=== PATIENT | male | born 1940 | race Caucasian/White ===

== ENCOUNTER → 2016-04-19 | Outpatient (CLI) | payer MEDICARE, OTHER ==
--- NOTE | 2016-04-21 11:24 | SLEEPCENT ---
DATE OF PROCEDURE: 04/19/2016 ORDERED BY: EMMANUEL Frazier Nocturnal polysomnography was performed for the titration of pressure therapy in this patient with obstructive sleep apnea syndrome confirmed by home testing revealing a respiratory event index of 6.2. For testing, the patient was fit with a [employer]Med Quattro Mirage full face mask of large size. 5 cm of water pressure was initially applied to the circuit and the lights were extinguished. 7 hours and 27 minutes of data were reviewed. There were 214 minutes of sleep identified. Sleep latency was short at 19 minutes. Rapid eye movement (REM) latency was prolonged at 322 minutes. Sleep architecture improved late in the study. Overall sleep efficiency was only 48% due to periods of wake along the test. The patient's electrocardiogram (EKG) showed a sinus rhythm with an average heart rate of 50 beats per minute. Electroencephalogram (EEG) showed reasonably normal waveforms for awake and sleep. Persistence of respiratory events prompted an increase in CPAP pressure from 6 to 9. Despite optimal mask fit, and minimal air leak, the patient was changed to a bilevel device and best sleep was appreciated on a bilevel therapy inspiratory pressure of 10 over expiratory pressure of 6 with which the patient did sleep through REM without respiratory event or oxygen desaturation. Minimal snoring was noted. IMPRESSION: Obstructive sleep apnea syndrome (G47.33). RECOMMENDATION: Nightly use of bilevel pressure therapy inspiratory pressure of 10 over expiratory pressure of 6.
== END ==
LOC: M SLEEP 19:32
PROVIDERS: ATTEND Nurse Practitioner Adult Health
DX: G47.33 Obstructive sleep apnea (adult) (pediatric) (principal)

== ENCOUNTER → 2016-05-02 | Outpatient (CLI) | payer MEDICARE, OTHER ==
--- NOTE | 2016-05-02 16:18 | REP ---
CHEST, TWO VIEWS: REASON: Chest pain. COMPARISON: 11/30/2011 FINDINGS: The superior mediastinal structures are midline. The cardiac silhouette is unremarkable in size, shape, and position. The diaphragmatic surfaces of the lungs are regular, and the costophrenic angles are clear. The pulmonary maza are clear. The imaged osseous structures are intact. No significant change from the prior exam. IMPRESSION: There is no acute cardiopulmonary disease. Signed by Benigno Raphael DO 05/02/2016 04:20 P
--- NOTE | 2016-05-02 16:28 | REP ---
Left rib series: Four views. History: Pain in the left lower ribs. Findings: There is some discoid atelectasis in the left lower lobe of the lung. No pneumothorax is seen. There is a slightly displaced fracture of the posterolateral segment of the left 8th rib. There is a radiolucency and a fracture involving the left lateral 2nd rib with some adjacent pleural thickening. This suggests a bony destructive lesion with pathologic fracture of the second rib. No other bony destructive lesion is seen. These are new findings when compared with the November 30, 2011 prior radiographs. Impression: Minimally displaced fracture of the left posterolateral 8th rib. Evidence of pathologic fracture with lytic lesion in the left second rib. Metastatic disease must be suspected. Consider bone scan. Signed by Wil Ash MD 05/02/2016 04:46 P
== END ==
LOC: M WUC 13:49
PROVIDERS: ATTEND Nurse Practitioner Family
DX: S22.32XA Fracture of one rib, left side, initial encounter for closed fracture (principal); M84.48XA Pathological fracture, other site, initial encounter for fracture; X58.XXXA Exposure to other specified factors, initial encounter; Y92.89 Other specified places as the place of occurrence of the external cause; Y93.89 Activity, other specified; Y99.8 Other external cause status

== ENCOUNTER → 2016-05-05 | Outpatient (CLI) | payer MEDICARE, OTHER ==
--- NOTE | 2016-05-05 14:10 | REP ---
WHOLE BODY RADIONUCLIDE BONE SCAN: HISTORY: Lytic lesion left 2nd rib. The patient reports left flank pain while sneezing. History of melanoma 5 years prior removed from the right forearm. TECHNIQUE: 21.7 mCi of technetium 99m MDP is injected, and standard whole body bone scan imaging is acquired. SCINTIGRAPHIC FINDINGS: There is an arthritic pattern of increased uptake in the region of the subtalar joints of both feet. There is mild arthritic uptake in the right knee and in both acromioclavicular joints. There is mild degenerative disc uptake in the mid lumbar spine. There is uptake in bilateral kidneys and in the urinary bladder. There are also scattered foci of increased uptake in the rib cage, compatible with metastatic disease. There is also a lesion showing increased uptake along the lateral border of the scapula on the left. The rib lesions include the right anterior 2nd rib, the left lateral 2nd rib, the left posterior 10th, 7th, and 5th ribs. No other suspicious foci. IMPRESSION: Metastatic disease pattern involving multiple rib foci and an area of increased uptake along the lateral border of the left scapula. Multifocal arthritic uptake as well. Signed by Wil Ash MD 05/05/2016 04:46 P
== END ==
LOC: M RAD 07:49
PROVIDERS: ATTEND Nurse Practitioner Family
DX: R93.7 Abnormal findings on diagnostic imaging of other parts of musculoskeletal system (principal)
CPT/HCPCS: 78306; A9503

== ENCOUNTER → 2016-05-10 | Outpatient (REF) | payer MEDICARE, OTHER ==
[2016-05-10 13:29] LABS: TOTAL PROTEIN 7.8 GM/DL (6.4-8.2)
[2016-05-11 13:10] LABS: ALBUMIN 4.05 GM/DL (3.29-5.55); ALBUMIN % 51.9 % (55.8-66.1); GAMMA GLOBULIN % 12.2 % (11.1-18.8)
[2016-05-12 09:35] LABS: CARCINOEMBRYONIC ANTIGEN 1.5 NG/ML (<2.5)
== END ==
LOC: M LAB REF 12:11
PROVIDERS: ATTEND Internal Medicine
DX: C43.61 Malignant melanoma of right upper limb, including shoulder (principal)

== ENCOUNTER → 2016-05-16 | Outpatient (REF) | payer MEDICARE, OTHER ==
[2016-05-16 17:02] LABS: IMMUNOGLOBULIN M 29.8 MG/DL (40-230)
== END ==
LOC: M LAB REF 12:24
PROVIDERS: ATTEND Internal Medicine Medical Oncology
DX: C90.00 Multiple myeloma not having achieved remission (principal)

== ENCOUNTER 2016-06-09 11:45 | Observation (INO) | payer MEDICARE, OTHER ==
[~2016-06-09] VITALS: Ht 180.3 cm; Wt 92.1 kg
[2016-06-09] MEDS ORDERED: ENAL20TA PO ×2 (12:11→12:21)
[2016-06-09] MEDS ORDERED: FINA5TAB2 PO (12:21)
[2016-06-09] MEDS ORDERED: [UNRECOGNIZED DRUG - OTHER] (12:21)
[2016-06-09] MEDS ORDERED: VELC3.5I SC (12:21)
[2016-06-09] MEDS ORDERED: PRAV40TA2 PO (12:21)
[2016-06-09] MEDS ORDERED: TRAM-533 PO (12:21)
[2016-06-09] MEDS ORDERED: REVL20CA PO (12:35)
[2016-06-09] MEDS ORDERED: BIMA01SOL OD (12:35)
[2016-06-09] MEDS ORDERED: DEXA4TA PO (12:35)
[2016-06-09] MEDS ORDERED: BIMA01SOL (12:35)
[2016-06-09] MEDS ORDERED: ACYC400T PO (12:35)
[2016-06-09] MEDS ORDERED: HYDR25TAB PO (12:35)
[2016-06-09] MEDS ORDERED: [UNRECOGNIZED DRUG - CODE] INJ (12:35)
[2016-06-09] MEDS ORDERED: DOCQ100C PO (12:35)
[2016-06-09] MEDS ORDERED: DULC100C PO (12:36)
[2016-06-09 12:53] LABS: BASO % 0.1 % (0.0-1.0); EOS # 0.1 K/mm3 (0.0-0.50); EOS % 0.6 % (0.0-3.0); LARGE UNSTAINED CELL # 0.1 K/mm3 (0.0-0.4); LARGE UNSTAINED CELL % 0.9 % (0.0-4.0); LYMPH # 0.7 K/mm3 (1.5-4.5); LYMPH % 5.8 % (24.0-44.0); MEAN CORPUSCULAR HGB CONC 34.2 g/dl (32.0-36.5); MEAN CORPUSCULAR VOLUME 90.7 fl (80.0-96.0); MONO # 0.8 K/mm3 (0.0-0.8); MONO % 8.1 % (0.0-5.0); NEUTROPHILS # 8.8 K/mm3 (1.8-7.7); NEUTROPHILS % 84.5 % (36.0-66.0); PLATELET COUNT, AUTOMATED 163 k/mm3 (150-450); WHITE BLOOD COUNT 10.4 K/mm3 (4.0-10.0)
[2016-06-09 12:58] LABS: INR 1.21
[2016-06-09 13:20] LABS: ALBUMIN 3.2 GM/DL (3.2-5.2); ALBUMIN/GLOBULIN RATIO 1.07 (1.00-1.93); ALKALINE PHOSPHATASE 98 U/L (45-117); ALT/SGPT 27 U/L (12-78); ANION GAP 10 MEQ/L (8-16); AST/SGOT 16 U/L (15-37); BILIRUBIN,DIRECT 0.3 MG/DL (0.0-0.2); BILIRUBIN,TOTAL 0.8 MG/DL (0.2-1.0); BLOOD UREA NITROGEN 18 MG/DL (7-18); CALCIUM LEVEL 7.1 MG/DL (8.8-10.2); CARBON DIOXIDE LEVEL 22 MEQ/L (21-32); CHLORIDE LEVEL 102 MEQ/L (98-107); CREATININE FOR GFR 0.95 MG/DL (0.70-1.30); GLOMERULAR FILTRATION RATE > 60.0 (>42); GLUCOSE, FASTING 111 MG/DL (83-110); POTASSIUM SERUM 3.6 MEQ/L (3.5-5.1); SODIUM LEVEL 134 MEQ/L (136-145); TOTAL PROTEIN 6.2 GM/DL (6.4-8.2)
[2016-06-09] MEDS ORDERED: NS 1,000 ML IV ONE (13:30)
[2016-06-09] MEDS ORDERED: NS 500 ML IV ONE ×2 (15:00→16:00)
[2016-06-09] MEDS ORDERED: traMADol 50 MG TAB PO ONE (18:45)
[2016-06-09] MEDS ORDERED: ONDANSETRON 4MG/2ML VIAL (J2405) IV PRN (19:45)
[2016-06-09] MEDS ORDERED: PROC10TA PO (20:41)
[2016-06-09] MEDS ORDERED: ACET-654 PO (20:41)
[2016-06-09] MEDS ORDERED: ZOFR20TA PO (20:41)
[2016-06-09] MEDS ORDERED: SENN8.6T17 PO (20:41)
--- NOTE | 2016-06-09 20:50 | REPUSA ---
CT of the head Clinical history: syncope. Technique: Multiple axial CT images were obtained through the head without administration of contrast . Findings: The ventricles and sulci are symmetric bilaterally. There is no evidence of acute hemorrhag e or infarct. There is no midline shift, mass effect, or extra-axial fluid collection. The osseous st ructures are unremarkable. The visualized paranasal sinuses and mastoid air cells are clear. Impression: Negative study.
[2016-06-09] MEDS ORDERED: traMADol 50 MG TAB PO PRN (21:00)
[2016-06-09] MEDS ORDERED: SENNA 8.6 MG TAB (SENOKOT) PO PRN (21:00)
--- NOTE | 2016-06-09 21:30 | HPE ---
DATE OF ADMISSION: 06/09/2016 PRIMARY CARE PROVIDER: Dr. Salguero CHIEF COMPLAINT: Weakness, dizziness and low blood pressure. PAST MEDICAL HISTORY: 1. Multiple myeloma, started on chemotherapy 10 days ago. 2. Obesity and obstructive sleep apnea. 3. Hypertension. 4. Hyperlipidemia. 5. BPH. 6. Chronic constipation. 7. 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 8. History of melanoma removed 5 years ago from right forearm. HISTORY OF THE PRESENT ILLNESS: This is a 76-year-old male who was diagnosed recently with multiple myeloma, started on chemotherapy with Velcade, revlimid and dexamethasone 10 days ago. The patient received three doses of Velcade to date and was at chemotherapy infusion unit to get the fourth dose today when he stood up and suddenly became very lightheaded, dizzy, nauseous. Blood pressure there showed hypotension and so was sent to the emergency room. In the emergency department, the patient had dry heaves and one episode of vomiting. The patient had a presyncopal episode. The patient was found to have orthostatic blood pressure positive. Labs also significant for elevated lactic acid. The patient received several liters of IV fluids with improvement in lactic acid; however, the patient remained positive for orthostatic hypotension, unable to stand up because of dizziness and lightheadedness, so is being admitted to the hospitalist service for dehydration, poor intake and orthostatic hypotension. The patient denied any fever or chills. Denied any abdominal pain. Does have some nausea and dry heaves. Denied any diarrhea. In fact, has constipation from pain medications because of his rib pain. Denied any chest pain, any cough or phlegm. The patient has been having very poor oral intake since the starting of chemotherapy and has been having very poor oral liquid intake. PAST SURGICAL HISTORY: Had ENT surgery before for tear duct infection. Had removal of loose bodies from right ankle. Melanoma removal from right forearm, from right upper extremity. Knee surgery, arthroscopic. Cataract surgery. ALLERGIES: No known allergies. HOME MEDICATIONS: - Tylenol 650 mg by mouth as needed - acyclovir 400 mg by mouth twice a day - Lumigan eye drop at bedtime - Velcade two times per week, Tuesdays and Fridays - dexamethasone 20 mg per week, once a day on Sunday - Colace 100 mg by mouth daily - enalapril 20 mg by mouth daily - finasteride 5 mg by mouth daily - hydrochlorothiazide 12.5 mg by mouth every 2 days - Zofran 4 mg by mouth every 6 hours as needed for nausea and vomiting - pravastatin 40 mg at bedtime - prochlorperazine 10 mg by mouth every 8 hours as needed for pain - revlimid 25 mg by mouth nightly - Senna one tablet by mouth daily - tramadol 50 mg every 6 hours as needed for pain - Zometa 4 mg injection every 30 days SOCIAL HISTORY: The patient does not smoke, does not drink alcohol or any recreational drugs. REVIEW OF SYSTEMS: All 10-point review of systems are negative except those mentioned in the history of the present illness. PHYSICAL EXAMINATION: VITAL SIGNS: Temperature 97.3, pulse 88, blood pressure 139/85 supine, 108/50 standing. Pulse oximetry 95% in room air. GENERAL: Patient awake, alert, oriented times three, lying down in bed in no acute distress. HEENT: Normocephalic, atraumatic. Moist mucous membranes. Anicteric eyes. CHEST: Clear to auscultation. CARDIOVASCULAR: S1, S2 regular. No rub, murmur or gallop. ABDOMEN: Soft, nontender. Bowel sounds present. EXTREMITIES: No edema. LABORATORY DATA: WBC 10.4, hemoglobin 13.9, platelets 163. Sodium 134, potassium 3.6, chloride 102, bicarbonate 22, BUN 18, creatinine 0.95, glucose 111, lactic acid 2.3, calcium 7.1, bilirubin 0.8, other LFTs are normal. Lipase 132. Cortisol 53.6. Coagulation studies are normal. ASSESSMENT: This is a 76-year-old male admitted for syncope, thought to be due to orthostatic hypotension. PLAN: Syncope. Most likely due to orthostatic hypotension; however, will cycle cardiac enzymes and observe the patient on telemetry, get CT head and echocardiogram to evaluate for other causes of syncope. Multiple myeloma. The patient is currently on chemotherapy, Velcade, revlimid and dexamethasone. Will continue revlimid 25 mg at bedtime and dexamethasone once a week on Saturdays. Hypertension. At present, the patient has orthostatic hypotension, so will hold enalapril as well as hydrochlorothiazide. Obstructive sleep apnea (ETIENNE). Patient could not tolerate continuous positive airway pressure (CPAP). Stable at this point. Hyperlipidemia. Will continue with pravastatin. 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 Will continue tramadol. Chronic constipation. Will continue with Dulcolax, Colace and Senna. Deep vein thrombosis (DVT) prophylaxis has been ordered.
[2016-06-09 23:30] VITALS: BP 145/66
[2016-06-10] VITALS (7 sets, daily range): BP systolic 125–149; BP diastolic 62–82; PULSE 61
[2016-06-10] MEDS: ACYCLOVIR 200 MG CAPSULE PO SCH ×3 (01:50→20:21)
[2016-06-10] MEDS: PRAVASTATIN 20 MG TAB PO SCH ×2 (01:51→20:20)
[2016-06-10 04:16] LABS: ANION GAP 8 MEQ/L (8-16); BLOOD UREA NITROGEN 14 MG/DL (7-18); CALCIUM LEVEL 6.8 MG/DL (8.8-10.2); CARBON DIOXIDE LEVEL 24 MEQ/L (21-32); CHLORIDE LEVEL 106 MEQ/L (98-107); GLOMERULAR FILTRATION RATE > 60.0 (>42); GLUCOSE, FASTING 102 MG/DL (83-110); MAGNESIUM LEVEL 1.9 MG/DL (1.8-2.4); POTASSIUM SERUM 3.3 MEQ/L (3.5-5.1); SODIUM LEVEL 138 MEQ/L (136-145)
[2016-06-10 04:24] LABS: BASO % 0.2 % (0.0-1.0); EOS # 0.2 K/mm3 (0.0-0.50); EOS % 1.3 % (0.0-3.0); LARGE UNSTAINED CELL # 0.2 K/mm3 (0.0-0.4); LARGE UNSTAINED CELL % 1.6 % (0.0-4.0); LYMPH # 0.7 K/mm3 (1.5-4.5); LYMPH % 6.4 % (24.0-44.0); MEAN CORPUSCULAR HEMOGLOBIN 31.4 pg (27.0-33.0); MEAN CORPUSCULAR HGB CONC 34.2 g/dl (32.0-36.5); MEAN CORPUSCULAR VOLUME 91.9 fl (80.0-96.0); MONO # 1.3 K/mm3 (0.0-0.8); NEUTROPHILS # 9.1 K/mm3 (1.8-7.7); NEUTROPHILS % 79.5 % (36.0-66.0); PLATELET COUNT, AUTOMATED 175 k/mm3 (150-450); RED CELL DISTRIBUTION WIDTH 12.9 % (11.5-14.5); WHITE BLOOD COUNT 11.4 K/mm3 (4.0-10.0)
[2016-06-10] MEDS ORDERED: POTASSIUM CHLORIDE 10 MEQ SR TABLET PO ONE (06:45)
[2016-06-10] MEDS ORDERED: CALCIUM GLUCONATE 1,000 MG in D5W MINI-BAG PLUS 100 ML IV ONE (08:15)
--- NOTE | 2016-06-10 08:27 | ECGEPIP ---
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
[2016-06-10] MEDS: FINASTERIDE 5 MG TAB PO SCH (09:00)
[2016-06-10] MEDS: DOCUSATE SODIUM 100 MG CAP PO SCH (09:47)
[2016-06-10] MEDS: ENOXAPARIN 40 MG/0.4 ML SYRINGE (J1650) SC SCH (09:48)
[2016-06-10] MEDS: ASPIRIN 81 MG ENTERIC TAB PO SCH (12:45)
[2016-06-10] MEDS: NS 1,000 ML IV SCH ×2 (12:45→20:21)
--- NOTE | 2016-06-10 12:48 | ECHO ---
DATE OF PROCEDURE: 06/10/2016 REFERRING PHYSICIAN: Maya Feldman. INDICATIONS: Syncope. The patient measures 71 inches and weighs 202 pounds. DIMENSIONS: IVS: 1.2 LV: 4.3 LVPW: 1.1 Aorta: 3.6 Ascending aorta: 4.2 RV: 2.9 E prime velocity on mitral valve flow is 88 cm/sec. E prime velocity septal is 5.1 cm/sec. E prime lateral 10.5 cm/sec. FINDINGS: The study is of fair technical quality. Left ventricle is normal size and systolic function with estimated ejection fraction (EF) around 65%. I do not appreciate any segmental wall motion abnormalities. Right ventricle does not appear enlarged and is normally contractile. Both atria are probably normal. Aortic valve is mildly sclerotic but mobility seems preserved. Mitral valve appears normal. Tricuspid valve appears normal. Pulmonic valve was not well seen. No pericardial effusion is noted. Inferior vena cava is dilated but does have some collapse with respiration. Aortic root and aortic arch appear normal. Visualized segment of ascending aorta is dilated at 4.2 cm. Abdominal aorta was not seen. Doppler interrogation, there was no significant aortic stenosis or insufficiency. There is also no significant mitral valve disease. There is trace tricuspid insufficiency. Calculated pulmonary artery pressure is within normal limits, even accounting for possibly elevated CVP. Evaluation of diastolic function reveals grade 2 diastolic dysfunction. CONCLUSIONS: 1. Study is of fair technical quality. 2. Normal LV size with borderline LVH and preserved LV systolic function. Probably grade 2 diastolic dysfunction. 3. No hemodynamically significant valvular disease. 4. Probably mildly elevated central venous pressure. 5. Likely normal pulmonary artery pressure. 6. Mildly dilated ascending aorta (4.2 cm). COMMENTS: Subacute bacterial endocarditis (SBE) prophylaxis is not recommended. Study does not provide obvious explanation for syncopal event.
--- NOTE | 2016-06-10 14:09 | IPNPDOC ---
Subjective Date Seen The patient was seen on 06/10/16. Subjective Chief Complaint/HPI The patient is a 76-year-old male admitted with a reason for visit of Syncope Due To Orthostatic Hypotension. General: Reports: Fatigue, Malaise, Denies: Chills, Night Sweats Constitutional: Denies: Chills, Fever Eyes: Denies: Pain, Vision change ENT: Denies: Ear Pain, Head Aches Skin: Denies: Lesions, Rash Pulmonary: Denies: Cough, Dyspnea Cardiovascular: Denies: Chest Pain, Palpitations Gastrointestinal: Reports: Nausea, Vomiting, Denies: Abdominal Pain, Diarrhea Genitourinary: Denies: Dysuria, Frequency Hematologic: Denies: Bleeding Excessively, Bruising Objective Physical Examination General Exam: Positive: Alert, Cooperative, Mild Distress ENT Exam: Positive: Atraumatic, Other ENT (Dry Mucous Membranes) Neck Exam: Negative: JVD Chest Exam: Positive: Clear to auscultation, Normal air movement Heart Exam: Positive: Normal S1, Normal S2, Rate Normal Telemetry: Positive: Sinus Abdomen Exam: Positive: Soft, Negative: Tenderness Extremity Exam: Negative: Swelling, Tenderness Assessment /Plan Plan/VTE VTE Prophylaxis Ordered?: Yes Plan Syncope 2/2 Orthostatic Hypotension 2/2 [address] following Chemotherapy CT Scan of the Head Negative Orthostatics noted to be positive SBP 140-->100 from sitting to standing IVF Hydration Will continue to monitor on Telemetry 2D ECHO ordered Will recheck orthostatics History of Multiple myeloma Follows with Dr. Vásquez of Heme/Onc Currently on chemotherapy, Velcade, revlimid and dexamethasone Continue revlimid 25 mg at bedtime and dexamethasone once a week on Saturdays. Hypertension Will hold enalapril as well as hydrochlorothiazide 2/2 above Obstructive sleep Apnea Intolerant of CPAP therapy in the past Hyperlipidemia Continue pravastatin. Chronic pain from Metastasis to Ribs Continue tramadol. Chronic constipation Continue with Dulcolax, Colace and Senna. Deep vein thrombosis (DVT) prophylaxis Lovenox Dispo: Will provide IVF Hydration, repeat orthostatics, and anticipate D/C in 24 hrs pending clinical improvement. VS, I&O, 24H, Fishbone Vital Signs/I&O Vital Signs Date Time Temp Pulse Resp B/P Pulse Ox O2 Delivery O2 Flow Rate FiO2 06/10/16 12:00 97.5 63 16 140/63 95 Room Air 4/7/17 12:07 2 I&O- Last 24 Hours up to 6 AM 06/10/16 06:00 Intake Total 1100 ml Output Total 200 ml Balance 900 ml Laboratory Data 24H LABS Laboratory Tests 2 06/09/16 17:01: Lactic Acid Followup at 4 Hours 1.4 06/09/16 20:16: Creatine Kinase MB 3.9H, Creatine Kinase MB Relative Index 2.05, Total Creatine Kinase 190 06/10/16 03:39: Creatine Kinase MB 4.7H, Creatine Kinase MB Relative Index 2.20, Total Creatine Kinase 213, Anion Gap 8, White Blood Count 11.4H, Red Blood Count 4.38, Hemoglobin 13.8L, Hematocrit 40.3L, Mean Corpuscular Volume 91.9, Mean Corpuscular Hemoglobin 31.4, Mean Corpuscular Hemoglobin Concent 34.2, Red Cell Distribution Width 12.9, Platelet Count 175, Neutrophils (%) (Auto) 79.5H, Lymphocytes (%) (Auto) 6.4L, Monocytes (%) (Auto) 11.0H, Eosinophils (%) (Auto) 1.3, Basophils (%) (Auto) 0.2, Neutrophils # (Auto) 9.1H, Lymphocytes # (Auto) 0.7L, Monocytes # (Auto) 1.3H, Eosinophils # (Auto) 0.2, Basophils # (Auto) 0.0 , Blood Urea Nitrogen 14, Creatinine 0.70, Sodium Level 138, Potassium Level 3.3L, Chloride Level 106, Carbon Dioxide Level 24, Calcium Level 6.8L, Glomerular Filtration Rate > 60.0, Large Unclassified Cells # 0.2, Large Unclassified Cells % 1.6, Magnesium Level 1.9 06/10/16 12:04: Creatine Kinase MB 5.3H, Creatine Kinase MB Relative Index 2.19, Total Creatine Kinase 241 CBC/BMP Laboratory Tests 06/10/16 03:39 Calcium Level 6.8 L, Total Creatine Kinase 213, Red Blood Count 4.38, Mean Corpuscular Volume 91.9, Mean Corpuscular Hemoglobin 31.4, Mean Corpuscular Hemoglobin Concent 34.2, Red Cell Distribution Width 12.9, Neutrophils (%) (Auto ) 79.5 H, Lymphocytes (%) (Auto) 6.4 L, Monocytes (%) (Auto) 11.0 H, Eosinophils (%) (Auto) 1.3, Basophils (%) (Auto) 0.2, Neutrophils # (Auto) 9.1 H , Lymphocytes # (Auto) 0.7 L, Monocytes # (Auto) 1.3 H, Eosinophils # (Auto) 0.2 , Basophils # (Auto) 0.0 Microbiology Microbiology 06/09/16 Blood Culture - Preliminary, Resulted No growth after 24 hours . All specim... 06/09/16 Blood Culture - Preliminary, Resulted No growth after 24 hours . All specim... SHAYLA CHARLES MD Jun 10, 2016 14:09
[2016-06-10] MEDS ORDERED: REVLIMID 25 MG PO SCH (21:00)
[2016-06-11] VITALS: BP 132/62
[2016-06-11 04:00] VITALS: BP 137/63
[2016-06-11 04:53] LABS: BASO % 0.1 % (0.0-1.0); EOS % 0.3 % (0.0-3.0); LARGE UNSTAINED CELL # 0.1 K/mm3 (0.0-0.4); LARGE UNSTAINED CELL % 0.6 % (0.0-4.0); LYMPH # 0.6 K/mm3 (1.5-4.5); LYMPH % 5.8 % (24.0-44.0); MEAN CORPUSCULAR HEMOGLOBIN 31.2 pg (27.0-33.0); MEAN CORPUSCULAR HGB CONC 33.6 g/dl (32.0-36.5); MEAN CORPUSCULAR VOLUME 92.9 fl (80.0-96.0); MONO # 0.6 K/mm3 (0.0-0.8); MONO % 6.4 % (0.0-5.0); NEUTROPHILS # 8.5 K/mm3 (1.8-7.7); NEUTROPHILS % 86.7 % (36.0-66.0); PLATELET COUNT, AUTOMATED 176 k/mm3 (150-450); RED CELL DISTRIBUTION WIDTH 13.4 % (11.5-14.5); WHITE BLOOD COUNT 9.8 K/mm3 (4.0-10.0)
[2016-06-11 05:15] LABS: ANION GAP 9 MEQ/L (8-16); BLOOD UREA NITROGEN 16 MG/DL (7-18); CALCIUM LEVEL 6.9 MG/DL (8.8-10.2); CARBON DIOXIDE LEVEL 21 MEQ/L (21-32); CHLORIDE LEVEL 108 MEQ/L (98-107); CREATININE FOR GFR 0.79 MG/DL (0.70-1.30); GLOMERULAR FILTRATION RATE > 60.0 (>42); GLUCOSE, FASTING 130 MG/DL (83-110); MAGNESIUM LEVEL 1.9 MG/DL (1.8-2.4); POTASSIUM SERUM 3.7 MEQ/L (3.5-5.1); SODIUM LEVEL 138 MEQ/L (136-145)
[2016-06-11 08:00] VITALS: BP 145/80
[2016-06-11] MEDS: DOCUSATE SODIUM 100 MG CAP PO SCH (09:11)
[2016-06-11] MEDS: FINASTERIDE 5 MG TAB PO SCH (09:11)
[2016-06-11] MEDS: ACYCLOVIR 200 MG CAPSULE PO SCH (09:11)
[2016-06-11] MEDS: ASPIRIN 81 MG ENTERIC TAB PO SCH (09:12)
[2016-06-11] MEDS: ENOXAPARIN 40 MG/0.4 ML SYRINGE (J1650) SC SCH (09:12)
[2016-06-11 12:00] VITALS: BP 132/72
--- NOTE | 2016-06-11 13:34 | DS.PDOC ---
Discharge Summary General Date of Admission Jun 09, 2016 at 19:43 Date of Discharge 06/11/16 Discharge Summary PROCEDURES PERFORMED DURING STAY: None. ADMITTING DIAGNOSES: 1. . Orthostatic hypotension 2. . Intractable nausea 3. . Lactic acidosis DISCHARGE DIAGNOSES: 1. . Orthostatic hypotension 2. . Intractable nausea 3. . Lactic acidosis COMPLICATIONS/CHIEF COMPLAINT: Syncope Due To Orthostatic Hypotension. HISTORY OF PRESENT ILLNESS: . 76-year-old male with past medical history of multiple myeloma status post first round of chemotherapy 12 days ago, metastasis to the ribs refracture of the left eighth rib and second left rib, obstructive sleep apnea, hypertension, dyslipidemia, BPH, and chronic constipation presented to the ER with a chief complaint of weakness, nausea, and low blood pressure. The patient stated that he presented to the chemotherapy infusion unit to get a dose of Velcade therapy and was feeling unwell. He states that upon standing up he suddenly became very lightheaded and dizzy with associated nausea. Blood pressure was measured there and he was noted to be hypotensive. The patient states that he has been having nausea with dry heaves but denies any fevers, chills, vomiting, diarrhea, or any complaints of chest pain, palpitations, abdominal pain, or any other acute complaints. The patient was subsequent sent to the ER for further evaluation. In the ER, the patient was noted to be positive for orthostatic hypotension, and with an elevated lactic acid level. The patient was admitted to the hospital service for further evaluation and management. During the patient's hospital stay here, he was started on IV fluid hydration. Repeat lactic acid level was noted to be within normal limits. CT scan of the head was noted to be negative. The patient did have his orthostatic vitals repeated, and they were noted to be negative for any orthostatic hypotension. At this time, the patient states that he is feeling much better after IV fluid hydration, and he has been able to tolerate a diet here. At this time, the patient is eager to return home after resolution of his symptoms. I have advised the patient to return to the ER if he has return of his symptoms or any complaints of intractable nausea, vomiting, diarrhea, or any other medical emergency. DISCHARGE MEDICATIONS: Please see below. ALLERGIES: Please see below. PHYSICAL EXAMINATION ON DISCHARGE: VITAL SIGNS: Please see below. General Exam: Positive: Alert, Cooperative, Mild Distress ENT Exam: Positive: Atraumatic, Other ENT (Dry Mucous Membranes) Neck Exam: Negative: JVD Chest Exam: Positive: Clear to auscultation, Normal air movement Heart Exam: Positive: Normal S1, Normal S2, Rate Normal Telemetry: Positive: Sinus Abdomen Exam: Positive: Soft, Negative: Tenderness Extremity Exam: Negative: Swelling, Tenderness LABORATORY DATA: Please see below. IMAGING: CT of the head Clinical history: syncope. Technique: Multiple axial CT images were obtained through the head without administration of contrast. Findings: The ventricles and sulci are symmetric bilaterally. There is no evidence of acute hemorrhage or infarct. There is no midline shift, mass effect , or extra-axial fluid collection. The osseous structures are unremarkable. The visualized paranasal sinuses and mastoid air cells are clear. Impression: Negative study. PROGNOSIS: Medically stable at this time ACTIVITY: As tolerated. DIET: . 2 g low sodium diet DISCHARGE PLAN: DISPOSITION: . Home DISCHARGE INSTRUCTIONS: 1. . Follow-up primary care physician within one week 2. . Follow-up with oncology within 1-2 weeks DISCHARGE CONDITION: Stable. TIME SPENT ON DISCHARGE: Greater than 30 minutes. Vital Signs/I&Os Vital Signs Date Time Temp Pulse Resp B/P Pulse Ox O2 Delivery O2 Flow Rate FiO2 06/11/16 12:00 98.0 70 18 132/72 98 Room Air 06/09/16 12:07 2 I&O- Last 24 Hours up to 6 AM 06/11/16 06:00 Intake Total 1870 ml Output Total 1225 ml Balance 645 ml Laboratory Data Labs 24H Laboratory Tests 2 06/11/16 04:41: Anion Gap 9, White Blood Count 9.8, Red Blood Count 4.33, Hemoglobin 13.5L, Hematocrit 40.2L, Mean Corpuscular Volume 92.9, Mean Corpuscular Hemoglobin 31.2 , Mean Corpuscular Hemoglobin Concent 33.6, Red Cell Distribution Width 13.4, Platelet Count 176, Neutrophils (%) (Auto) 86.7H, Lymphocytes (%) (Auto) 5.8L, Monocytes (%) (Auto) 6.4H, Eosinophils (%) (Auto) 0.3, Basophils (%) (Auto) 0.1 , Neutrophils # (Auto) 8.5H, Lymphocytes # (Auto) 0.6L, Monocytes # (Auto) 0.6, Eosinophils # (Auto) 0.0, Basophils # (Auto) 0.0, Blood Urea Nitrogen 16, Creatinine 0.79, Sodium Level 138, Potassium Level 3.7, Chloride Level 108H, Carbon Dioxide Level 21, Calcium Level 6.9L, Glomerular Filtration Rate > 60.0, Large Unclassified Cells # 0.1, Large Unclassified Cells % 0.6, Magnesium Level 1.9 CBC/BMP Laboratory Tests 06/11/16 04:41 Calcium Level 6.9 L, Red Blood Count 4.33, Mean Corpuscular Volume 92.9, Mean Corpuscular Hemoglobin 31.2, Mean Corpuscular Hemoglobin Concent 33.6, Red Cell Distribution Width 13.4, Neutrophils (%) (Auto) 86.7 H, Lymphocytes (%) (Auto) 5.8 L, Monocytes (%) (Auto) 6.4 H, Eosinophils (%) (Auto) 0.3, Basophils (%) ( Auto) 0.1, Neutrophils # (Auto) 8.5 H, Lymphocytes # (Auto) 0.6 L, Monocytes # ( Auto) 0.6, Eosinophils # (Auto) 0.0, Basophils # (Auto) 0.0 Microbiology Microbiology 06/09/16 Blood Culture - Preliminary, Resulted No Growth after 48 hours. All Specime... 06/09/16 Blood Culture - Preliminary, Resulted No Growth after 48 hours. All Specime... Discharge Medications Scheduled (Revlimid) 20 Mg Cap 25 MG PO QHS (Reported) TAKES FOR 21 DAYS, THEN OFF FOR 7 DAYS, CURRENTLY ON DAY 11 (Docqlace) 100 Mg Cap 100 MG PO DAILY (Reported) Acyclovir (Acyclovir) 400 Mg Tab 400 MG PO BID (Reported) Bimatoprost (Lumigan) 50 Drop/2.5 Ml Pepper 1 DROP OD QHS (Reported) Bortezomib (Velcade) Unknown Strength Inj Unknown Dose SC 2XW (Reported) TU, AND FRI Dexamethasone (Dexamethasone) 4 Mg Tab 20 MG PO 1XWK (Reported) SATURDAY, AROUND LUNCHTIME Enalapril Maleate (Enalapril Maleate) 20 Mg Tab 20 MG PO DAILY (Reported) Finasteride (Finasteride) 5 Mg Tab 5 MG PO DAILY (Reported) Hydrochlorothiazide (Hydrochlorothiazide) 25 Mg Tab 12.5 MG PO Q2D (Reported) Pravastatin Sod (Pravastatin Sodium) 40 Mg Tab 40 MG PO QHS (Reported) Zoledronic Acid (Zometa) 4 Mg/5 Ml Inj 4 MG INJ Q30D (Reported) Scheduled PRN Acetaminophen (Acetaminophen) 325 Mg Tab 650 MG PO PRN BREAKTHROUGH PAIN ( Reported) Ondansetron HCl (Zofran) 4 Mg Tab 4 MG PO Q6H PRN PRN NAUSEA OR VOMITING ( Reported) Prochlorperazine Maleate (Prochlorperazine Maleate) 10 Mg Tab 10 MG PO Q8H PRN PRN PAIN (Reported) Senna (Senna Laxative) 8.6 Mg Tab 1 TAB PO DAILY PRN PRN CONSTIPATION (Reported ) Tramadol HCl (Tramadol Hydrochloride) 50 Mg Tab 50 MG PO Q6HP PRN PRN PAIN ( Reported) Allergies Coded Allergies: No Known Allergies (Unverified , 06/09/16) SHAYLA CHARLES MD Jun 11, 2016 13:34
== END 2016-06-11 13:35 | disposition home or self-care (01) ==
LOC: M ED 13:48 → M ED INP 19:43 → M ICU 06-10 13:38
PROVIDERS: ADMIT Internal Medicine Nephrology; ATTEND Internal Medicine
DX: I95.1 Orthostatic hypotension (principal); R11.0 Nausea; E87.2 Acidosis; C90.00 Multiple myeloma not having achieved remission; C79.51 Secondary malignant neoplasm of bone; Z79.899 Other long term (current) drug therapy; I10 Essential (primary) hypertension; G47.33 Obstructive sleep apnea (adult) (pediatric); E78.5 Hyperlipidemia, unspecified; E66.9 Obesity, unspecified; N40.0 Benign prostatic hyperplasia without lower urinary tract symptoms; Z85.820 Personal history of malignant melanoma of skin
CPT/HCPCS: 36415; 70450; 80048; 80076; 82533; 82550; 82553; 83605; 83690; 83735; 84484; 85025; 85610; 86850; 86900; 86901; 87040; 93005; 93041; 93306; 96372; 96376; 99285; G0378; J0610; J1650; J2405

== ENCOUNTER → 2016-07-10 | Outpatient (REF) | payer MEDICARE, OTHER ==
[~2016-07-10] MED LIST: ACET-654 PO; ACYC400T PO; BIMA01SOL; BIMA01SOL OD; DEXA4TA PO; DOCQ100C PO; DULC100C PO; ENAL20TA PO; FINA5TAB2 PO; HYDR25TAB PO; PRAV40TA2 PO; PROC10TA PO; REVL20CA PO; SENN8.6T17 PO; TRAM-533 PO; VELC3.5I SC; ZOFR20TA PO; [UNRECOGNIZED DRUG - CODE] INJ; [UNRECOGNIZED DRUG - OTHER]
[2016-07-10 19:40] LABS: IMMUNOGLOBULIN G 496 MG/DL (681-1648); MAGNESIUM LEVEL 2.1 MG/DL (1.8-2.4); TOTAL PROTEIN 5.9 GM/DL (6.4-8.2)
[2016-07-10 20:07] LABS: IMMUNOGLOBULIN M 24.4 MG/DL (40-230)
[2016-07-11 10:55] LABS: ALBUMIN 3.42 GM/DL (3.29-5.55); GAMMA GLOBULIN % 8.7 % (11.1-18.8)
[2016-07-14 00:08] LABS: FREE KAPPA LIGHT CHAINS SERUM 17.2 mg/L (3.30-19.40); FREE LAMBDA LIGHT CHAINS SERUM 7.38 mg/L (5.71-26.30); KAPPA/LAMBDA RATIO SERUM 2.33 (0.26-1.65)
== END ==
LOC: M LAB REF 16:41
PROVIDERS: ATTEND Internal Medicine Medical Oncology
DX: C90.00 Multiple myeloma not having achieved remission (principal)

== ENCOUNTER → 2016-07-11 | Outpatient (REF) | payer MEDICARE, OTHER ==
[~2016-07-11] MED LIST changes: +ASPI1TAB PO; +ELIQ5TAB PO; +REFR0.5D8 OU
== END ==
LOC: M LAB REF 12:42
PROVIDERS: ATTEND Internal Medicine Medical Oncology
DX: C90.00 Multiple myeloma not having achieved remission (principal)

== ENCOUNTER 2016-07-17 13:05 | Inpatient (IN) | payer MEDICARE, OTHER ==
[~2016-07-17] VITALS: Ht 182.9 cm; Wt 87.7 kg
[~2016-07-17 13:05] MED LIST changes: -ASPI1TAB PO; -ELIQ5TAB PO; -ISOVUE-370 76% 100ML VIAL (Q9967) As Ordered ONE; -REFR0.5D8 OU
[2016-07-17 15:15] VITALS: BP 146/77
[2016-07-17] MEDS ORDERED: ONDANSETRON 4MG/2ML VIAL (J2405) IV PRN (15:15)
[2016-07-17] MEDS ORDERED: traMADol 50 MG TAB PO PRN (15:15)
[2016-07-17] MEDS ORDERED: MORPHINE 2 MG/ML 1ML SYRINGE IV PRN (15:15)
[2016-07-17] MEDS ORDERED: BISACODYL 10 MG SUPP PR PRN (15:15)
[2016-07-17] MEDS ORDERED: SENNA 8.6 MG TAB (SENOKOT) PO PRN (15:15)
[2016-07-17] MEDS ORDERED: ACETAMINOPHEN TAB 650MG DOSE (2X325MG) PO PRN (15:15)
[2016-07-17] MEDS ORDERED: PROCHLORPERAZINE 5 MG TAB (S0183) PO PRN (15:15)
[2016-07-17] MEDS ORDERED: PERCOCET 5MG/325MG TAB PO PRN (15:15)
[2016-07-17] MEDS ORDERED: APIXABAN 5 MG TAB (ELIQUIS) PO ONE ×4 (15:30→23:59)
[2016-07-17 16:00] VITALS: BP 155/82
[2016-07-17] MEDS ORDERED: ASPI1TAB PO (17:16)
[2016-07-17] MEDS ORDERED: REFR0.5D8 OU (17:16)
[2016-07-17] MEDS ORDERED: ELIQ5TAB PO (17:16)
--- NOTE | 2016-07-17 18:15 | HPE ---
DATE OF ADMISSION: 07/17/2016 PRIMARY CARE PHYSICIAN: Dr. Salguero. HEMATOLOGY/ONCOLOGY: Dr. Vásquez. CHIEF COMPLAINT: Dyspnea. HISTORY OF PRESENT ILLNESS: Mr. Serrato is a 76-year-old male who was admitted directly to our hospital from Dr. Vásquez's office due to shortness of breath. The patient had CT angiogram which indicated extended bilateral pulmonary embolism. The patient has a history of multiple myeloma and was started on chemotherapy with Velcade, Revlimid and dexamethasone. The patient expressed that for the past six days ago, the patient noticed that he became more out of breath with activities, especially with ambulation and the steps that the patient can ambulate has decreased due to dyspnea. The patient expressed that the dyspnea decreased by sitting and increased with activities. The patient also had several episodes of chills; however, he relates this to chemotherapy. This morning, the patient had an appointment with Dr. Vásquez, and he expressed concern regarding dyspnea. Dr. Vásquez ordered imaging (CT angiogram) which indicated extended pulmonary embolism (PE). The patient was sent to the hospital for direct admission. The patient denies fever, night sweats. The patient also denies nausea, vomiting or seizure type activities. The patient also expressed that he had mild headache and lightheadedness which comes with the dyspnea. The patient denies any palpitations, racing or skipping heartbeat. The patient also denies coughing. PAST MEDICAL HISTORY: 1. Multiple myeloma, is on chemotherapy. 2. Obesity and obstructive sleep apnea. 3. Hypertension. 4. Hyperlipidemia. 5. Benign prostatic hypertrophy (BPH). 6. Chronic constipation. 7. 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 8. History of melanoma, removed five years ago from the right forearm. ALLERGIES: No known allergies. PAST SURGICAL HISTORY: 1. ENT surgery before for tear duct infection. 2. Removal of loose bodies from the right ankle. 3. Melanoma removed from the right upper extremity. 4. Knee surgery, arthroscopy. 5. Cataract surgery. HOME MEDICATIONS: - acetaminophen 650 mg by mouth daily - acyclovir 400 mg by mouth twice a day - bimatoprost one drop right eye four times a day - Velcade - dexamethasone 20 mg by mouth one time weekly - Dulcolax 100 mg by mouth daily - finasteride 5 mg by mouth daily - pravastatin 40 mg by mouth at bedtime - revlimid 25 mg by mouth at bedtime - senna one tablet by mouth daily as needed for constipation - Zometa 4 mg injection every 30 days SOCIAL HISTORY: The patient denies history of smoking. The patient denies history of alcohol use or illicit drug us. The patient lives with his . The patient has two children who are healthy. FAMILY HISTORY: The patient has two brothers who are healthy. The patient's father due to heart disease. The patient's mother due to old age. REVIEW OF SYSTEMS: GENERAL: The patient denies fever, night sweats; however, patient has chills. Patient also expressed that he has lost some weight. However, he is not exactly sure how much. HEENT: The patient denies acute vision or hearing changes. The patient denies sinusitis or problems with chewing food. NECK: The patient denies lumps, bumps, or decreased range of motion of his neck. HEART: The patient denies palpitations, racing or skipping heart beat or chest pain. LUNGS: The patient expressed that he has been experiencing dyspnea that has been increased. However, the patient denies coughing or wheezing. ABDOMEN: The patient denies abdominal pain, nausea, vomiting, diarrhea or constipation, melena, hematochezia or hemoptysis. NEUROLOGIC: The patient denies history of transient ischemic attack (TIA), cerebrovascular accident (CVA), or seizure-type activities. PHYSICAL EXAMINATION: VITAL SIGNS: Temperature 97.1, pulse 67, respiratory rate 20, blood pressure 146/77, pulse oximetry 94% on room air. GENERAL APPEARANCE: The patient was lying on the bed in no acute distress. The patient was awake, alert, and oriented to time, place, and person. HEENT: Normocephalic, atraumatic. Pupils are equal and reactive to light. Oral mucosa is moist. NECK: Soft, supple. No lymphadenopathy or thyromegaly. No jugular venous distention (JVD). HEART: Regular rate and rhythm. Normal S1, S2. No rub, gallop or murmur. ABDOMEN: Soft, nontender. Positive bowel sounds in all quadrants. EXTREMITIES: No lower extremity edema. Plus two pulses in both lower extremities. The patient has normal range of motion in both upper and lower extremities. The patient has normal strength in both upper and lower extremities (5/5). NEUROLOGIC: Cranial nerves II through XII intact. No focal deficiency. LABORATORY DATA: Laboratory data is pending at this time. IMAGING: CT angiogram which was done today, indicated extended bilateral pulmonary emboli , and no associated consolidation. Suspected nondisplaced acute right second and sixth rib fractures, along with multiple bilateral healed old rib fractures and osseous looseness consistent with history of multiple myeloma. A 2.3 cm nodule in the left anterior chest wall may reflect lymph node, and 3.4 cm left renal hypodensity likely representing cyst. ASSESSMENT AND PLAN: 1. Pulmonary embolism. At this time, I have spoken with Dr. Vásquez and I have started the patient on Eliquis 10 mg twice a day for seven days, and then 5 mg twice a day. At this time, the patient is stable and is on room air. Will continue to monitor patient for any abnormal symptoms. 2. Multiple myeloma. The patient is on chemotherapy and following with Dr. Vásquez. The patient is on Velcade, revlimid, and dexamethasone. However, at this time I will continue patient on revlimid 25 mg at bedtime and dexamethasone once a week on Sunday. Also, we will continue the patient on acyclovir 400 mg by mouth twice a day for prophylaxis. 3. Hypertension. At this point, the patient's blood pressure is stable. I will continue the patient on hydrochlorothiazide 12.5 mg by mouth daily, as well as enalapril 20 mg by mouth daily. 4. Obstructive sleep apnea. The patient cannot tolerate continuous positive airway pressure (CPAP). The patient is stable at this time. 5. Hyperlipidemia. The patient is on pravastatin sodium 40 mg by mouth at bedtime. 6. Chronic pain from metastases to ribs. At this time, we will continue the patient on tramadol 50 mg by mouth every six hours as needed, as well as morphine 2 mg intravenous (IV) every two hours as needed for severe pain, and Percocet one tablet every four hours as needed for pain. However, the patient is currently stable. 7. Chronic constipation. Will continue the patient on Colace, senna as needed for constipation. 8. Deep venous thrombosis (DVT) prophylaxis. The patient is on Eliquis. MTDD
[2016-07-17 20:00] VITALS: BP 122/69
[2016-07-17] MEDS: ACYCLOVIR 200 MG CAPSULE PO SCH (20:35)
[2016-07-17] MEDS: PRAVASTATIN 20 MG TAB PO SCH (20:35)
[2016-07-17] MEDS ORDERED: APIXABAN 5 MG TAB (ELIQUIS) PO SCH (21:00)
[2016-07-18] VITALS (7 sets, daily range): BP systolic 116–160; BP diastolic 73–93
[2016-07-18 06:06] LABS: BASO % 0.5 % (0.0-1.0); EOS # 0.6 K/mm3 (0.0-0.50); EOS % 7.4 % (0.0-3.0); LARGE UNSTAINED CELL # 0.2 K/mm3 (0.0-0.4); LARGE UNSTAINED CELL % 2.4 % (0.0-4.0); LYMPH # 1.5 K/mm3 (1.5-4.5); LYMPH % 16.7 % (24.0-44.0); MEAN CORPUSCULAR HGB CONC 33.6 g/dl (32.0-36.5); MONO # 0.9 K/mm3 (0.0-0.8); NEUTROPHILS # 4.8 K/mm3 (1.8-7.7); NEUTROPHILS % 61.1 % (36.0-66.0); PLATELET COUNT, AUTOMATED 232 k/mm3 (150-450); RED CELL DISTRIBUTION WIDTH 15.1 % (11.5-14.5); WHITE BLOOD COUNT 7.9 K/mm3 (4.0-10.0)
[2016-07-18 06:26] LABS: ALBUMIN 2.6 GM/DL (3.2-5.2); ALBUMIN/GLOBULIN RATIO 0.84 (1.00-1.93); ALKALINE PHOSPHATASE 125 U/L (45-117); ALT/SGPT 25 U/L (12-78); ANION GAP 5 MEQ/L (8-16); AST/SGOT 19 U/L (15-37); BILIRUBIN,TOTAL 0.9 MG/DL (0.2-1.0); BLOOD UREA NITROGEN 14 MG/DL (7-18); CALCIUM LEVEL 7.2 MG/DL (8.8-10.2); CARBON DIOXIDE LEVEL 29 MEQ/L (21-32); CHLORIDE LEVEL 106 MEQ/L (98-107); CREATININE FOR GFR 0.85 MG/DL (0.70-1.30); GLOMERULAR FILTRATION RATE > 60.0 (>42); GLUCOSE, FASTING 91 MG/DL (83-110); SODIUM LEVEL 140 MEQ/L (136-145); TOTAL PROTEIN 5.7 GM/DL (6.4-8.2)
[2016-07-18] MEDS ORDERED: ELIQ5TAB PO (07:18)
[2016-07-18 08:16] LABS: INR 1.65
[2016-07-18] MEDS: ACYCLOVIR 200 MG CAPSULE PO SCH ×2 (08:41→20:13)
[2016-07-18] MEDS: FINASTERIDE 5 MG TAB PO SCH (08:41)
[2016-07-18] MEDS: APIXABAN 5 MG TAB (ELIQUIS) PO SCH ×2 (08:41→20:13)
[2016-07-18] MEDS: DOCUSATE SODIUM 100 MG CAP PO SCH (08:42)
[2016-07-18] MEDS ORDERED: ENALAPRIL MALEATE 10 MG TAB PO SCH (09:00)
--- NOTE | 2016-07-18 14:34 | IPNPDOC ---
Subjective Date Seen The patient was seen on 07/18/16. Subjective Chief Complaint/HPI The patient is a 76-year-old male admitted with a reason for visit of Positive Pe. General: Denies: Chills, Night Sweats Constitutional: Denies: Chills, Fever Eyes: Denies: Pain, Vision change ENT: Denies: Head Aches, Ear Pain Skin: Denies: Rash, Lesions Pulmonary: Denies: Dyspnea, Cough Cardiovascular: Denies: Chest Pain, Palpitations Gastrointestinal: Denies: Nausea, Vomiting Genitourinary: Denies: Dysuria, Frequency Hematologic: Denies: Bruising, Bleeding Excessively Objective Physical Examination General Exam: Positive: Alert, Cooperative, No Acute Distress ENT Exam: Positive: Atraumatic, Mucous membr. moist/pink Neck Exam: Negative: JVD Chest Exam: Positive: Clear to auscultation, Normal air movement Heart Exam: Positive: Rate Normal, Normal S1, Normal S2 Telemetry: Positive: Sinus Abdomen Exam: Positive: Soft, Tenderness Extremity Exam: Negative: Tenderness, Swelling Psych Exam: Positive: Oriented x 3 Assessment /Plan Plan/VTE VTE Prophylaxis Ordered?: Yes Plan SOB 2/2 Bilateral Pulmonary Emboli CTA of the Chest noted Patient started on Eliquis Has been hemodynamically stable here Will continue to monitor on telemetry History of Multiple myeloma with Metastasis to the Ribs Follows with Dr. Vásquez of Heme/Onc Currently on chemotherapy, Velcade, revlimid and dexamethasone Continue revlimid 25 mg at bedtime and dexamethasone once a week on Saturdays. Obstructive sleep Apnea Intolerant of CPAP therapy in the past Hyperlipidemia Continue pravastatin. Chronic pain from Metastasis to Ribs Continue tramadol. Chronic constipation Continue with Dulcolax, Colace and Senna. BPH Cont Finasteride Deep vein thrombosis (DVT) prophylaxis On Eliquis Dispo: Will order PT eval given the patient's fatigue, SOB. May benefit from wheelchair 2/2 decreased ambulatory status from SOB. VS, I&O, 24H, Fishbone Vital Signs/I&O Vital Signs Date Time Temp Pulse Resp B/P (MAP) Pulse Ox O2 Delivery O2 Flow Rate FiO2 07/18/16 12:00 98.7 76 20 131/77 (95) 92 Room Air I&O- Last 24 Hours up to 6 AM 07/18/16 06:00 Intake Total 660 ml Output Total 1550 ml Balance -890 ml Laboratory Data 24H LABS Laboratory Tests 2 07/18/16 05:49: White Blood Count 7.9, Red Blood Count 4.36, Hemoglobin 13.5L, Hematocrit 40.1L , Mean Corpuscular Volume 92.0, Mean Corpuscular Hemoglobin 31.0, Mean Corpuscular Hemoglobin Concent 33.6, Red Cell Distribution Width 15.1H, Platelet Count 232, Neutrophils (%) (Auto) 61.1, Lymphocytes (%) (Auto) 16.7L, Monocytes (%) (Auto) 12.0H, Eosinophils (%) (Auto) 7.4H, Basophils (%) (Auto) 0.5, Neutrophils # (Auto) 4.8, Lymphocytes # (Auto) 1.5, Monocytes # (Auto) 0.9H , Eosinophils # (Auto) 0.6H, Basophils # (Auto) 0.0, Large Unclassified Cells % 2.4, Large Unclassified Cells # 0.2, Anion Gap 5L, Glomerular Filtration Rate > 60.0, Blood Urea Nitrogen 14, Creatinine 0.85, Sodium Level 140, Potassium Level 4.0, Chloride Level 106, Carbon Dioxide Level 29, Calcium Level 7.2L, Aspartate Amino Transf (AST/SGOT) 19, Alanine Aminotransferase (ALT/SGPT) 25, Alkaline Phosphatase 125H, Total Bilirubin 0.9, Total Protein 5.7L, Albumin 2.6L , Albumin/Globulin Ratio 0.84L 07/18/16 07:46: Prothrombin Time 19.6H, Prothromb Time International Ratio 1.65, Activated Partial Thromboplast Time 32.0 CBC/BMP Laboratory Tests 07/18/16 05:49 Red Blood Count 4.36, Mean Corpuscular Volume 92.0, Mean Corpuscular Hemoglobin 31.0, Mean Corpuscular Hemoglobin Concent 33.6, Red Cell Distribution Width 15.1 H, Neutrophils (%) (Auto) 61.1, Lymphocytes (%) (Auto) 16.7 L, Monocytes (% ) (Auto) 12.0 H, Eosinophils (%) (Auto) 7.4 H, Basophils (%) (Auto) 0.5, Neutrophils # (Auto) 4.8, Lymphocytes # (Auto) 1.5, Monocytes # (Auto) 0.9 H, Eosinophils # (Auto) 0.6 H, Basophils # (Auto) 0.0, Calcium Level 7.2 L, Aspartate Amino Transf (AST/SGOT) 19, Alanine Aminotransferase (ALT/SGPT) 25, Alkaline Phosphatase 125 H, Total Bilirubin 0.9, Total Protein 5.7 L, Albumin 2.6 L SHAYLA CHARLES MD July 18, 2016 14:34
[2016-07-18] MEDS: PRAVASTATIN 20 MG TAB PO SCH (20:13)
[2016-07-19 04:15] VITALS: BP 153/83
[2016-07-19 05:17] LABS: BASO % 0.4 % (0.0-1.0); EOS # 0.3 K/mm3 (0.0-0.50); LARGE UNSTAINED CELL # 0.3 K/mm3 (0.0-0.4); LARGE UNSTAINED CELL % 3.7 % (0.0-4.0); LYMPH # 1.5 K/mm3 (1.5-4.5); LYMPH % 19.3 % (24.0-44.0); MEAN CORPUSCULAR HEMOGLOBIN 31.7 pg (27.0-33.0); MEAN CORPUSCULAR HGB CONC 33.5 g/dl (32.0-36.5); MEAN CORPUSCULAR VOLUME 94.7 fl (80.0-96.0); MONO # 0.8 K/mm3 (0.0-0.8); MONO % 10.8 % (0.0-5.0); NEUTROPHILS # 4.7 K/mm3 (1.8-7.7); NEUTROPHILS % 61.8 % (36.0-66.0); PLATELET COUNT, AUTOMATED 221 k/mm3 (150-450); WHITE BLOOD COUNT 7.6 K/mm3 (4.0-10.0)
[2016-07-19 05:28] LABS: ALBUMIN 2.5 GM/DL (3.2-5.2); ALBUMIN/GLOBULIN RATIO 0.78 (1.00-1.93); ALKALINE PHOSPHATASE 122 U/L (45-117); ALT/SGPT 22 U/L (12-78); ANION GAP 9 MEQ/L (8-16); AST/SGOT 12 U/L (15-37); BILIRUBIN,TOTAL 0.8 MG/DL (0.2-1.0); BLOOD UREA NITROGEN 12 MG/DL (7-18); CALCIUM LEVEL 6.9 MG/DL (8.8-10.2); CARBON DIOXIDE LEVEL 23 MEQ/L (21-32); CHLORIDE LEVEL 108 MEQ/L (98-107); CREATININE FOR GFR 0.79 MG/DL (0.70-1.30); GLOMERULAR FILTRATION RATE > 60.0 (>42); GLUCOSE, FASTING 103 MG/DL (83-110); POTASSIUM SERUM 3.5 MEQ/L (3.5-5.1); SODIUM LEVEL 140 MEQ/L (136-145); TOTAL PROTEIN 5.7 GM/DL (6.4-8.2)
[2016-07-19 07:00] VITALS: BP 139/86
[2016-07-19] MEDS ORDERED: POTASSIUM CHLORIDE 10 MEQ SR TABLET PO ONE (08:15)
[2016-07-19] MEDS ORDERED: CALCIUM GLUCONATE 1,000 MG in D5W MINI-BAG PLUS 100 ML IV ONE (08:15)
[2016-07-19] MEDS ORDERED: hydroCHLOROthiazide 25 MG TAB PO SCH (09:00)
[2016-07-19] MEDS: FINASTERIDE 5 MG TAB PO SCH (10:05)
[2016-07-19] MEDS: DOCUSATE SODIUM 100 MG CAP PO SCH (10:05)
[2016-07-19] MEDS: APIXABAN 5 MG TAB (ELIQUIS) PO SCH (10:05)
[2016-07-19] MEDS: ACYCLOVIR 200 MG CAPSULE PO SCH (10:05)
[2016-07-19 12:00] VITALS: BP 146/78
--- NOTE | 2016-07-19 14:52 | DS.PDOC ---
Discharge Summary General Date of Admission July 17, 2016 at 13:48 Date of Discharge 07/19/16 Discharge Summary PROCEDURES PERFORMED DURING STAY: None. ADMITTING DIAGNOSES: 1. . Extensive bilateral pulmonary emboli 2. . History of multiple myeloma DISCHARGE DIAGNOSES: 1. . Extensive bilateral pulmonary emboli 2. . History of multiple myeloma COMPLICATIONS/CHIEF COMPLAINT: Positive Pe. HISTORY OF PRESENT ILLNESS: . 76-year-old male with past medical history of multiple myeloma who is currently receiving chemotherapy, metastasis to the ribs with fracture of the left eighth rib and second left rib, obstructive sleep apnea, hypertension, dyslipidemia, BPH, and chronic constipation was sent to the ER by his oncologist Dr. Vásquez after he was found to have extensive bilateral pulmonary emboli on a CT angiogram done as an outpatient. The patient stated that during this time he had been having worsening exertional dyspnea. He denied any complaints of fevers , chills, chest pain, palpitations, abdominal pain, or any nausea/vomiting/ diarrhea. The patient was admitted to the hospitalist service for further evaluation and management. During the patient's hospitalization here, he was started on Eliquis for anticoagulation. In addition, he was admitted to the telemetry unit where he was monitored. He had no acute events on telemetry. In addition, the patient states that his exertional tolerance improved. He was seen by physical therapy here and they have cleared him for discharge. I discussed the risks and benefits associated with taking Eliquis with the patient at length which includes possible bleeding, hemorrhagic stroke, that may possibly lead to . The patient has verbalized understanding risks of this medication. At this time the patient states these feeling better and he is eager to return home. I advised patient to follow-up with his primary care provider within 1 week. In addition, the patient is also to follow up with his oncologist Dr. Vásquez within the next 2-3 weeks for further evaluation and management of his oncologic care. DISCHARGE MEDICATIONS: Please see below. ALLERGIES: Please see below. PHYSICAL EXAMINATION ON DISCHARGE: VITAL SIGNS: Please see below. General Exam: Positive: Alert, Cooperative, No Acute Distress ENT Exam: Positive: Atraumatic, Mucous membr. moist/pink Neck Exam: Negative: JVD Chest Exam: Positive: Clear to auscultation, Normal air movement Heart Exam: Positive: Rate Normal, Normal S1, Normal S2 Telemetry: Positive: Sinus Abdomen Exam: Positive: Soft, Tenderness Extremity Exam: Negative: Tenderness, Swelling Psych Exam: Positive: Oriented x 3 LABORATORY DATA: Please see below. IMAGING: Clinical: Multiple myeloma with shortness of breath. Technique: Axial contrast enhanced images from the thoracic inlet to the upper abdomen using 100 ml Isovue 370 intravenous contrast material with multiplanar re-formations. Findings: Marked extensive bilateral pulmonary emboli are identified from the bilateral main pulmonary arteries extending into the right upper lobe, right middle lobe and right lower lobe as well as the left upper lobe and left lower lobe. Minimal scattered atelectasis and dependent changes are appreciated. No focal consolidation. No effusion or pneumothorax. Tracheobronchial tree is patent. No significant adenopathy. Atherosclerotic changes to the thoracic aorta and coronary arteries noted without aneurysm/dissection or cardiomegaly. No pericardial effusion. Skeletal structures demonstrate degenerative changes as well as subtle scattered osseous lucencies consistent with a history of multiple myeloma. Multiple bilateral healed rib fractures are identified as well as suspected nondisplaced acute fracture involving the right sixth rib posteriorly and possible second rib laterally. Limited upper abdomen demonstrates normal bilateral adrenal glands along with 3.4 cm left renal cyst. A nodule in the left anterior chest wall measures 2.3 cm and may reflect lymph node (image 34). Impression: 1. Extensive bilateral pulmonary emboli. No associated consolidation. 2. Suspected nondisplaced acute right 2nd and 6th rib fractures along with multiple bilateral healed old rib fractures and osseous lucencies consistent with history of multiple myeloma. 3. 2.3 cm nodule in the left anterior chest wall may reflect lymph node. 4. 3.4 cm left renal hypodensity likely representing cyst. PROGNOSIS: Medically stable ACTIVITY: As tolerated. DIET: .2 gm low sodium diet DISCHARGE PLAN: DISPOSITION: . DISCHARGE INSTRUCTIONS: 1. . Follow-up with primary care physician within one week 2. . Follow-up with oncology within 1-2 weeks 3. . Return to the ER if symptoms of persistent bleeding or worsening shortness of breath, chest pain occur. DISCHARGE CONDITION: Stable. TIME SPENT ON DISCHARGE: Greater than 30 minutes. Vital Signs/I&Os Vital Signs Date Time Temp Pulse Resp B/P (MAP) Pulse Ox O2 Delivery O2 Flow Rate FiO2 07/19/16 09:00 98.9 07/19/16 08:00 Room Air 07/19/16 07:00 60 18 139/86 (103) 92 I&O- Last 24 Hours up to 6 AM 07/19/16 06:00 Intake Total 1380 ml Output Total 2100 ml Balance -720 ml Laboratory Data Labs 24H Laboratory Tests 2 07/19/16 04:45: White Blood Count 7.6, Red Blood Count 4.38, Hemoglobin 13.9L, Hematocrit 41.5L , Mean Corpuscular Volume 94.7, Mean Corpuscular Hemoglobin 31.7, Mean Corpuscular Hemoglobin Concent 33.5, Red Cell Distribution Width 15.0H, Platelet Count 221, Neutrophils (%) (Auto) 61.8, Lymphocytes (%) (Auto) 19.3L, Monocytes (%) (Auto) 10.8H, Eosinophils (%) (Auto) 4.0H, Basophils (%) (Auto) 0.4, Neutrophils # (Auto) 4.7, Lymphocytes # (Auto) 1.5, Monocytes # (Auto) 0.8 , Eosinophils # (Auto) 0.3, Basophils # (Auto) 0.0, Large Unclassified Cells % 3.7, Large Unclassified Cells # 0.3, Anion Gap 9, Glomerular Filtration Rate > 60.0, Blood Urea Nitrogen 12, Creatinine 0.79, Sodium Level 140, Potassium Level 3.5, Chloride Level 108H, Carbon Dioxide Level 23, Calcium Level 6.9L, Aspartate Amino Transf (AST/SGOT) 12L, Alanine Aminotransferase (ALT/SGPT) 22, Alkaline Phosphatase 122H, Total Bilirubin 0.8, Total Protein 5.7L, Albumin 2.5L , Albumin/Globulin Ratio 0.78L CBC/BMP Laboratory Tests 07/19/16 04:45 Red Blood Count 4.38, Mean Corpuscular Volume 94.7, Mean Corpuscular Hemoglobin 31.7, Mean Corpuscular Hemoglobin Concent 33.5, Red Cell Distribution Width 15.0 H, Neutrophils (%) (Auto) 61.8, Lymphocytes (%) (Auto) 19.3 L, Monocytes (% ) (Auto) 10.8 H, Eosinophils (%) (Auto) 4.0 H, Basophils (%) (Auto) 0.4, Neutrophils # (Auto) 4.7, Lymphocytes # (Auto) 1.5, Monocytes # (Auto) 0.8, Eosinophils # (Auto) 0.3, Basophils # (Auto) 0.0, Calcium Level 6.9 L, Aspartate Amino Transf (AST/SGOT) 12 L, Alanine Aminotransferase (ALT/SGPT) 22, Alkaline Phosphatase 122 H, Total Bilirubin 0.8, Total Protein 5.7 L, Albumin 2.5 L Discharge Medications Scheduled (Revlimid) 20 Mg Cap, 25 MG PO QHS, (Reported) TAKES FOR 21 DAYS, THEN OFF FOR 7 DAYS, STARTS 7 DAYS OFF 07/17 (Docqlace) 100 Mg Cap, 100 MG PO DAILY, (Reported) Acyclovir (Acyclovir) 400 Mg Tab, 400 MG PO BID, (Reported) Apixaban Base (Eliquis) 5 Mg Tab, 5 MG PO ASDIRECTED 10 MG (2 TABS) TWICE PER DAY FOR 7 DAYS THEN 5 MG (1 TAB) TWICE PER DAY Aspirin (Aspirin 81) 81 Mg Tab, 81 MG PO QHS, (Reported) Bimatoprost (Lumigan) 50 Drop/2.5 Ml Pepper, 1 DROP OD QHS, (Reported) Bortezomib (Velcade) Unknown Strength Inj, Unknown Dose SC 2XW, (Reported) , AND SUN, TAKING THIS WEEK OFF Dexamethasone (Dexamethasone) 4 Mg Tab, 20 MG PO 1XWK, (Reported) SUNDAY, AROUND LUNCHTIME Finasteride (Finasteride) 5 Mg Tab, 5 MG PO DAILY, (Reported) Pravastatin Sod (Pravastatin Sodium) 40 Mg Tab, 40 MG PO QHS, (Reported) Zoledronic Acid (Zometa) 4 Mg/5 Ml Inj, 4 MG INJ Q30D, (Reported) Scheduled PRN Acetaminophen (Acetaminophen) 325 Mg Tab, 650 MG PO for BREAKTHROUGH PAIN, ( Reported) Carboxymethylcellulose Sodium (Refresh Tears) 0.5 % Adonis, 1 DROP OU TID PRN for DRY EYES, (Reported) Senna (Senna Laxative) 8.6 Mg Tab, 1 TAB PO DAILY PRN for CONSTIPATION, ( Reported) Allergies Coded Allergies: No Known Allergies (Unverified , 06/09/16) SHAYLA CHARLES MD July 19, 2016 14:52
== END 2016-07-19 14:15 | disposition home or self-care (01) | DRG 176 ==
LOC: M PCU 13:48
PROVIDERS: ADMIT Internal Medicine; ATTEND Internal Medicine
DX: I26.99 Other pulmonary embolism without acute cor pulmonale (principal); C90.00 Multiple myeloma not having achieved remission; C79.51 Secondary malignant neoplasm of bone; M84.58XD Pathological fracture in neoplastic disease, other specified site, subsequent encounter for fracture with routine healing; G47.33 Obstructive sleep apnea (adult) (pediatric); I10 Essential (primary) hypertension; E78.5 Hyperlipidemia, unspecified; N40.0 Benign prostatic hyperplasia without lower urinary tract symptoms; K59.00 Constipation, unspecified; R91.1 Solitary pulmonary nodule; E66.9 Obesity, unspecified; Z79.899 Other long term (current) drug therapy; G89.3 Neoplasm related pain (acute) (chronic)

== ENCOUNTER → 2016-07-17 | Outpatient (CLI) | payer MEDICARE, OTHER ==
[~2016-07-17] MED LIST changes: +ISOVUE-370 76% 100ML VIAL (Q9967) As Ordered ONE
--- NOTE | 2016-07-17 12:12 | REP ---
Clinical: Multiple myeloma with shortness of breath. Technique: Axial contrast enhanced images from the thoracic inlet to the upper abdomen using 100 ml Isovue 370 intravenous contrast material with multiplanar re-formations. Findings: Marked extensive bilateral pulmonary emboli are identified from the bilateral main pulmonary arteries extending into the right upper lobe, right middle lobe and right lower lobe as well as the left upper lobe and left lower lobe. Minimal scattered atelectasis and dependent changes are appreciated. No focal consolidation. No effusion or pneumothorax. Tracheobronchial tree is patent. No significant adenopathy. Atherosclerotic changes to the thoracic aorta and coronary arteries noted without aneurysm/dissection or cardiomegaly. No pericardial effusion. Skeletal structures demonstrate degenerative changes as well as subtle scattered osseous lucencies consistent with a history of multiple myeloma. Multiple bilateral healed rib fractures are identified as well as suspected nondisplaced acute fracture involving the right sixth rib posteriorly and possible second rib laterally. Limited upper abdomen demonstrates normal bilateral adrenal glands along with 3.4 cm left renal cyst. A nodule in the left anterior chest wall measures 2.3 cm and may reflect lymph node (image 34). Impression: 1. Extensive bilateral pulmonary emboli. No associated consolidation. 2. Suspected nondisplaced acute right 2nd and 6th rib fractures along with multiple bilateral healed old rib fractures and osseous lucencies consistent with history of multiple myeloma. 3. 2.3 cm nodule in the left anterior chest wall may reflect lymph node. 4. 3.4 cm left renal hypodensity likely representing cyst. Signed by Chance Schultz MD 07/17/2016 12:03 P
== END ==
LOC: M RAD 11:12
PROVIDERS: ATTEND Internal Medicine Medical Oncology
DX: I26.99 Other pulmonary embolism without acute cor pulmonale (principal); R91.1 Solitary pulmonary nodule

== ENCOUNTER → 2016-09-18 | Outpatient (REF) | payer MEDICARE, OTHER ==
[~2016-09-18] MED LIST changes: -ACET-654 PO; +ACET1TAB17 PO; +ASPI1TAB PO; +ELIQ5TAB PO; +REFR0.5D8 OU
[2016-09-18 20:55] LABS: IMMUNOGLOBULIN G 471 MG/DL (681-1648)
[2016-09-18 21:22] LABS: IMMUNOGLOBULIN M 12.5 MG/DL (40-230)
[2016-09-20 12:53] LABS: ALBUMIN 3.73 GM/DL (3.29-5.55); ALBUMIN % 62.1 % (55.8-66.1); GAMMA GLOBULIN % 7.5 % (11.1-18.8)
[2016-09-21 00:08] LABS: FREE KAPPA LIGHT CHAINS SERUM 11.2 mg/L (3.3-19.4); FREE LAMBDA LIGHT CHAINS SERUM 11.1 mg/L (5.7-26.3); KAPPA/LAMBDA RATIO SERUM 1.01 (0.26-1.65)
== END ==
LOC: M LAB REF 18:36
PROVIDERS: ATTEND Internal Medicine Medical Oncology
DX: C90.00 Multiple myeloma not having achieved remission (principal)

== ENCOUNTER → 2016-10-16 | Outpatient (REF) | payer MEDICARE, OTHER ==
[2016-10-16 21:32] LABS: IMMUNOGLOBULIN G 426 MG/DL (681-1648); TOTAL PROTEIN 6.1 GM/DL (6.4-8.2)
[2016-10-16 22:03] LABS: IMMUNOGLOBULIN M 11.1 MG/DL (40-230)
[2016-10-17 15:06] LABS: ALBUMIN 3.86 GM/DL (3.29-5.55); ALBUMIN % 63.3 % (55.8-66.1); GAMMA GLOBULIN % 7.1 % (11.1-18.8)
[2016-10-19 14:13] LABS: FREE KAPPA LIGHT CHAINS SERUM 11.4 mg/L (3.3-19.4); FREE LAMBDA LIGHT CHAINS SERUM 8.7 mg/L (5.7-26.3); KAPPA/LAMBDA RATIO SERUM 1.31 (0.26-1.65)
== END ==
LOC: M LAB REF 18:18
PROVIDERS: ATTEND Internal Medicine Medical Oncology
DX: C90.00 Multiple myeloma not having achieved remission (principal)

== ENCOUNTER → 2016-10-26 | Outpatient (REF) | payer MEDICARE, OTHER ==
[2016-10-26 20:05] LABS: IMMUNOGLOBULIN M 12.6 MG/DL (40-230)
[2016-10-29 00:07] LABS: FREE KAPPA LIGHT CHAINS SERUM 11.9 mg/L (3.3-19.4); FREE LAMBDA LIGHT CHAINS SERUM 10.6 mg/L (5.7-26.3); KAPPA/LAMBDA RATIO SERUM 1.12 (0.26-1.65)
== END ==
LOC: M LAB REF 13:00
PROVIDERS: ATTEND Internal Medicine Medical Oncology
DX: C90.00 Multiple myeloma not having achieved remission (principal)

== ENCOUNTER → 2016-11-23 | Outpatient (REF) | payer MEDICARE, OTHER ==
[2016-11-23 20:19] LABS: IMMUNOGLOBULIN M 18.6 MG/DL (40-230)
[2016-11-26 00:06] LABS: FREE KAPPA LIGHT CHAINS SERUM 13.2 mg/L (3.3-19.4); FREE LAMBDA LIGHT CHAINS SERUM 10.8 mg/L (5.7-26.3); KAPPA/LAMBDA RATIO SERUM 1.22 (0.26-1.65)
== END ==
LOC: M LAB REF 13:10
PROVIDERS: ATTEND Internal Medicine Medical Oncology
DX: C90.00 Multiple myeloma not having achieved remission (principal)

== ENCOUNTER → 2017-04-02 | Outpatient (REF) | payer MEDICARE, OTHER ==
[2017-04-02 20:42] LABS: URINE TOTAL PROTEIN 101.6 MG/DL (0-12)
[2017-04-02 20:52] LABS: TOTAL PROTEIN 6.9 GM/DL (6.4-8.2)
[2017-04-03 11:14] LABS: ALPHA-1-GLOBULIN % 3.8 % (2.9-4.9); ALPHA-2-GLOBULINS % 10.4 % (7.1-11.8); BETA-1-GLOBULINS % 6.3 % (4.7-7.2); BETA-2-GLOBULINS % 5.3 % (3.2-6.5)
[2017-04-03 11:15] LABS: ALBUMIN 4.35 GM/DL (3.29-5.55); ALPHA-1-GLOBULINS 0.26 GM/DL (0.17-0.41); ALPHA-2-GLOBULINS 0.72 GM/DL (0.42-0.99); BETA-1-GLOBULINS 0.43 GM/DL (0.28-0.60); BETA-2-GLOBULINS 0.37 GM/DL (0.19-0.55); GAMMA GLOBULIN % 11.2 % (11.1-18.8); GAMMA GLOBULINS 0.77 GM/DL (0.65-1.58)
[2017-04-05 00:07] LABS: FREE KAPPA LIGHT CHAINS SERUM 14.9 mg/L (3.3-19.4); FREE LAMBDA LIGHT CHAINS SERUM 10.5 mg/L (5.7-26.3); KAPPA/LAMBDA RATIO SERUM 1.42 (0.26-1.65)
== END ==
LOC: M LAB REF 17:00
DX: C90.00 Multiple myeloma not having achieved remission (principal)
CPT/HCPCS: 84165

== ENCOUNTER 2017-07-31 09:48 | Emergency (ER) | payer MEDICARE, OTHER ==
[2017-07-31] MEDS: IPRATROPIUM 0.5MG/ALBUTEROL 2.5MG INH SOL UD 3ML (DUONEB)(J7620) NEB (12:29)
[2017-07-31 12:52] LABS: BASO % 0.3 % (0.0-1.0); EOS # 0.1 10^3/uL (0.0-0.50); HEMATOCRIT 32.2 % (42.0-52.0); HEMOGLOBIN 10.6 g/dl (13.5-17.5); IMMATURE GRANULOCYTE % 1.1 % (0-3.0); LYMPH # 1.8 10^3/uL (1.5-4.5); LYMPH % 27.8 % (24.0-44.0); MEAN CORPUSCULAR HEMOGLOBIN 30.5 pg (27.0-33.0); MEAN CORPUSCULAR HGB CONC 32.9 g/dl (32.0-36.5); MEAN CORPUSCULAR VOLUME 92.5 fl (80.0-96.0); MONO # 0.6 10^3/uL (0.0-0.8); MONO % 9.4 % (0.0-5.0); NEUTROPHILS # 3.8 10^3/uL (1.8-7.7); NEUTROPHILS % 59.4 % (36.0-66.0); PLATELET COUNT, AUTOMATED 171 10^3/uL (150-450); RED BLOOD COUNT 3.48 10^6/uL (4.30-6.10); RED CELL DISTRIBUTION WIDTH 14.7 % (11.5-14.5); WHITE BLOOD COUNT 6.4 10^3/uL (4.0-10.0)
[2017-07-31 13:12] LABS: D-DIMER QUANT < 270.0 ng/ml (<500)
[2017-07-31 13:23] LABS: INFLUENZA A AMPLIFICATION NEGATIVE (NEGATIVE); INFLUENZA B AMPLIFICATION NEGATIVE (NEGATIVE)
[2017-07-31 14:33] LABS: ANION GAP 9 MEQ/L (8-16); BLOOD UREA NITROGEN 13 MG/DL (7-18); CARBON DIOXIDE LEVEL 24 MEQ/L (21-32); CHLORIDE LEVEL 105 MEQ/L (98-107); CK-MB VALUE MASS 1.1 NG/ML (<3.6); CPK CREATINE PHOSPHOKINASE 50 U/L (39-308); GLOMERULAR FILTRATION RATE 52.2 (>42); GLUCOSE, FASTING 100 MG/DL (70-100); POTASSIUM SERUM 4.4 MEQ/L (3.5-5.1); SODIUM LEVEL 138 MEQ/L (136-145); TROPONIN I < 0.02 NG/ML (< 0.10)
[2017-07-31] MEDS ORDERED: ISOVUE-370 76% 100ML VIAL (Q9967) As Ordered (14:46)
== END 2017-07-31 16:45 | disposition home or self-care (01) ==
LOC: M ED 09:48
DX: R06.02 Shortness of breath (principal); I10 Essential (primary) hypertension; C90.00 Multiple myeloma not having achieved remission; Z86.711 Personal history of pulmonary embolism; Z79.899 Other long term (current) drug therapy; Z79.01 Long term (current) use of anticoagulants; Z85.820 Personal history of malignant melanoma of skin
CPT/HCPCS: Q9967

== ENCOUNTER 2017-08-10 10:15 | Outpatient (CLI) | payer MEDICARE, OTHER ==
[2017-08-10] MEDS: FUROSEMIDE 20 MG/2 ML VIAL (J1940) IV (10:45)
[2017-08-10] MEDS: diphenhydrAMINE 25 MG CAP PO (11:54)
[2017-08-10] MEDS: ACETAMINOPHEN TAB 650MG DOSE (2X325MG) PO (11:55)
[2017-08-10 14:57] LABS: IMMEDIATE SPIN CROSSMATCH 1 2
== END 2017-08-10 17:20 | disposition home or self-care (01) ==
LOC: M INFU 10:15
DX: C90.00 Multiple myeloma not having achieved remission (principal); C79.51 Secondary malignant neoplasm of bone; I26.99 Other pulmonary embolism without acute cor pulmonale; D64.9 Anemia, unspecified; Z79.899 Other long term (current) drug therapy
CPT/HCPCS: 36430

== ENCOUNTER → 2017-08-10 | Outpatient (REF) | payer MEDICARE, OTHER ==
[2017-08-10 14:32] LABS: FERRITIN 1031 NG/ML (26-388); IMMUNOGLOBULIN G 328 MG/DL (681-1648); IRON (FE) 73 UG/DL (65-175); TOTAL IRON BINDING CAPACITY 174 UG/DL (250-450); TOTAL PROTEIN 12.5 GM/DL (6.4-8.2)
[2017-08-10 14:44] LABS: IMMUNOGLOBULIN M 15.2 MG/DL (40-230)
[2017-08-14 10:11] LABS: ALBUMIN 3.03 GM/DL (3.29-5.55); ALBUMIN % 24.2 % (55.8-66.1); ALPHA-1-GLOBULIN % 2.1 % (2.9-4.9); ALPHA-1-GLOBULINS 0.26 GM/DL (0.17-0.41); ALPHA-2-GLOBULINS 0.63 GM/DL (0.42-0.99); BETA-1-GLOBULINS 0.38 GM/DL (0.28-0.60); BETA-2-GLOBULINS 5.99 GM/DL (0.19-0.55); BETA-2-GLOBULINS % 47.9 % (3.2-6.5); GAMMA GLOBULIN % 17.8 % (11.1-18.8); GAMMA GLOBULINS 2.23 GM/DL (0.65-1.58)
== END ==
LOC: M LAB REF 13:20
DX: C90.00 Multiple myeloma not having achieved remission (principal); C79.51 Secondary malignant neoplasm of bone; I26.99 Other pulmonary embolism without acute cor pulmonale

== ENCOUNTER 2017-08-11 14:18 | Emergency (ER) | payer MEDICARE, OTHER ==
[2017-08-11 15:12] LABS: BASO % 0.2 % (0.0-1.0); EOS # 0.1 10^3/uL (0.0-0.50); HEMATOCRIT 31.6 % (42.0-52.0); HEMOGLOBIN 10.6 g/dl (13.5-17.5); IMMATURE GRANULOCYTE % 1.8 % (0-3.0); LYMPH # 1.5 10^3/uL (1.5-4.5); LYMPH % 29.4 % (24.0-44.0); MEAN CORPUSCULAR HEMOGLOBIN 30.7 pg (27.0-33.0); MEAN CORPUSCULAR HGB CONC 33.5 g/dl (32.0-36.5); MEAN CORPUSCULAR VOLUME 91.6 fl (80.0-96.0); MONO # 0.8 10^3/uL (0.0-0.8); MONO % 15.7 % (0.0-5.0); NEUTROPHILS # 2.5 10^3/uL (1.8-7.7); NEUTROPHILS % 50.9 % (36.0-66.0); PLATELET COUNT, AUTOMATED 156 10^3/uL (150-450); RED BLOOD COUNT 3.45 10^6/uL (4.30-6.10); RED CELL DISTRIBUTION WIDTH 15.5 % (11.5-14.5)
[2017-08-11] MEDS: OXYMETAZOLINE NASAL SPRAY (AFRIN) (15:17)
[2017-08-11 16:00] LABS: ALBUMIN 2.5 GM/DL (3.2-5.2); ALBUMIN/GLOBULIN RATIO 0.23 (1.00-1.93); ALKALINE PHOSPHATASE 49 U/L (45-117); ALT/SGPT 18 U/L (12-78); ANION GAP 9 MEQ/L (8-16); AST/SGOT 28 U/L (7-37); BILIRUBIN,DIRECT 0.1 MG/DL (0.0-0.2); BILIRUBIN,TOTAL 0.4 MG/DL (0.2-1.0); BLOOD UREA NITROGEN 18 MG/DL (7-18); CALCIUM LEVEL 10.6 MG/DL (8.8-10.2); CARBON DIOXIDE LEVEL 20 MEQ/L (21-32); CHLORIDE LEVEL 105 MEQ/L (98-107); CREATININE FOR GFR 1.51 MG/DL (0.70-1.30); GLOMERULAR FILTRATION RATE 47.8 (>42); GLUCOSE, FASTING 97 MG/DL (70-100); POTASSIUM SERUM 4.6 MEQ/L (3.5-5.1); SODIUM LEVEL 134 MEQ/L (136-145); TOTAL PROTEIN 13.6 GM/DL (6.4-8.2)
[2017-08-11] MEDS ORDERED: ACETAMINOPHEN TAB 650MG DOSE (2X325MG) PO (16:30)
[2017-08-11] MEDS ORDERED: SODIUM CHLORIDE NASAL 0.65% SPRAY BTL (OCEAN) (16:30)
== END 2017-08-11 16:56 | disposition home or self-care (01) ==
LOC: M ED 14:18
DX: R04.0 Epistaxis (principal); C90.00 Multiple myeloma not having achieved remission; I10 Essential (primary) hypertension; N40.0 Benign prostatic hyperplasia without lower urinary tract symptoms; E78.00 Pure hypercholesterolemia, unspecified; Z79.899 Other long term (current) drug therapy; Z79.01 Long term (current) use of anticoagulants
CPT/HCPCS: 80076

== ENCOUNTER 2017-08-13 19:36 | Emergency (ER) | payer MEDICARE, OTHER ==
[2017-08-13] MEDS: PHENYLEPHRINE 0.5% NASAL SPRAY 15 ML (21:00)
[2017-08-13] MEDS: ACETAMINOPHEN 325 MG TAB PO (21:15)
[2017-08-13 21:33] LABS: BASO % 0.2 % (0.0-1.0); EOS # 0.1 10^3/uL (0.0-0.50); EOS % 1.1 % (0.0-3.0); HEMATOCRIT 30.1 % (42.0-52.0); IMMATURE GRANULOCYTE % 1.9 % (0-3.0); LYMPH # 1.6 10^3/uL (1.5-4.5); LYMPH % 29.3 % (24.0-44.0); MEAN CORPUSCULAR HEMOGLOBIN 30.4 pg (27.0-33.0); MEAN CORPUSCULAR HGB CONC 33.2 g/dl (32.0-36.5); MEAN CORPUSCULAR VOLUME 91.5 fl (80.0-96.0); MONO # 0.8 10^3/uL (0.0-0.8); MONO % 14.2 % (0.0-5.0); NEUTROPHILS # 2.8 10^3/uL (1.8-7.7); NEUTROPHILS % 53.3 % (36.0-66.0); PLATELET COUNT, AUTOMATED 148 10^3/uL (150-450); RED BLOOD COUNT 3.29 10^6/uL (4.30-6.10); RED CELL DISTRIBUTION WIDTH 15.2 % (11.5-14.5); WHITE BLOOD COUNT 5.3 10^3/uL (4.0-10.0)
== END 2017-08-13 23:13 | disposition home or self-care (01) ==
LOC: M ED 19:36
DX: R04.0 Epistaxis (principal); I10 Essential (primary) hypertension; C90.00 Multiple myeloma not having achieved remission; Z86.711 Personal history of pulmonary embolism; Z79.899 Other long term (current) drug therapy
CPT/HCPCS: 85025

== ENCOUNTER 2017-08-14 10:41 | Emergency (ER) | payer MEDICARE, OTHER ==
[2017-08-14] MEDS: PHENYLEPHRINE 0.5% NASAL SPRAY 15 ML (11:16)
[2017-08-14] MEDS: NS 500 ML IV (11:16)
[2017-08-14 11:24] LABS: BASO % 0.4 % (0.0-1.0); EOS # 0.1 10^3/uL (0.0-0.50); EOS % 1.2 % (0.0-3.0); HEMATOCRIT 30.6 % (42.0-52.0); HEMOGLOBIN 10.1 g/dl (13.5-17.5); IMMATURE GRANULOCYTE % 3.2 % (0-3.0); LYMPH # 1.6 10^3/uL (1.5-4.5); LYMPH % 27.5 % (24.0-44.0); MEAN CORPUSCULAR HEMOGLOBIN 30.3 pg (27.0-33.0); MEAN CORPUSCULAR VOLUME 91.9 fl (80.0-96.0); MONO # 0.7 10^3/uL (0.0-0.8); MONO % 12.1 % (0.0-5.0); NEUTROPHILS # 3.1 10^3/uL (1.8-7.7); NEUTROPHILS % 55.6 % (36.0-66.0); PLATELET COUNT, AUTOMATED 149 10^3/uL (150-450); RED BLOOD COUNT 3.33 10^6/uL (4.30-6.10); RED CELL DISTRIBUTION WIDTH 15.4 % (11.5-14.5); WHITE BLOOD COUNT 5.6 10^3/uL (4.0-10.0)
[2017-08-14 11:35] LABS: INR 1.87; PROTHROMBIN TIME 22.1 SECONDS (12.4-14.5)
[2017-08-14 11:36] LABS: PARTIAL THROMBOPLASTIN TIME 49.5 SECONDS (26.8-37.9)
== END 2017-08-14 13:23 | disposition home or self-care (01) ==
LOC: M ED 10:41
DX: R04.0 Epistaxis (principal); Z85.79 Personal history of other malignant neoplasms of lymphoid, hematopoietic and related tissues; D68.32 Hemorrhagic disorder due to extrinsic circulating anticoagulants; Z79.01 Long term (current) use of anticoagulants; Z79.899 Other long term (current) drug therapy
CPT/HCPCS: 85610

== ENCOUNTER → 2017-08-16 | Outpatient (REF) | payer MEDICARE, OTHER ==
[2017-08-16 10:23] LABS: IMMUNOGLOBULIN G 294 MG/DL (681-1648)
[2017-08-16 10:28] LABS: INR 1.34; PROTHROMBIN TIME 16.9 SECONDS (12.4-14.5)
[2017-08-16 10:29] LABS: FIBRINOGEN 221 MG/DL (221-452); PARTIAL THROMBOPLASTIN TIME 36.1 SECONDS (26.8-37.9)
[2017-08-16 10:31] LABS: D-DIMER QUANT 1211.2 ng/ml (<500)
[2017-08-16 12:17] LABS: IMMUNOGLOBULIN M 11.7 MG/DL (40-230)
[2017-08-21 00:06] LABS: BETA 2 MICROGLOBULIN 16.7 mg/L (0.6-2.4)
[2017-08-21 00:06] LABS: SERUM VISCOSITY > 5.0 rel.saline (1.6-1.9)
== END ==
LOC: M LAB REF 09:27
DX: C90.00 Multiple myeloma not having achieved remission (principal); C79.51 Secondary malignant neoplasm of bone; I26.99 Other pulmonary embolism without acute cor pulmonale
CPT/HCPCS: 82784

== ENCOUNTER → 2017-08-27 | Outpatient (CLI) | payer MEDICARE, OTHER | LOC: M CARPUL 11:15 | DX: C90.00 Multiple myeloma not having achieved remission (principal); Z79.899 Other long term (current) drug therapy | CPT/HCPCS: 93306 ==

== ENCOUNTER → 2017-09-20 | Outpatient (REF) | payer MEDICARE, OTHER ==
[2017-09-20 18:09] LABS: IMMUNOGLOBULIN M 25.9 MG/DL (40-230)
== END ==
LOC: M LAB REF 17:21
DX: C90.00 Multiple myeloma not having achieved remission (principal); C79.51 Secondary malignant neoplasm of bone; I26.99 Other pulmonary embolism without acute cor pulmonale
CPT/HCPCS: 82784

== ENCOUNTER → 2017-09-26 | Outpatient (REF) | payer MEDICARE, OTHER ==
[2017-09-26 19:38] LABS: IMMUNOGLOBULIN A 44.9 MG/DL (70-400)
== END ==
LOC: M LAB REF 18:56
DX: C90.00 Multiple myeloma not having achieved remission (principal); C79.51 Secondary malignant neoplasm of bone; I26.99 Other pulmonary embolism without acute cor pulmonale
CPT/HCPCS: 82784

== ENCOUNTER → 2017-10-25 | Outpatient (REF) | payer MEDICARE, OTHER ==
[2017-10-25 14:38] LABS: IMMUNOGLOBULIN A 39.1 MG/DL (70-400)
== END ==
LOC: M LAB REF 13:33
DX: C90.00 Multiple myeloma not having achieved remission (principal); C79.51 Secondary malignant neoplasm of bone; I26.99 Other pulmonary embolism without acute cor pulmonale
CPT/HCPCS: 82784

== ENCOUNTER → 2017-11-29 | Outpatient (REF) | payer MEDICARE, OTHER ==
[2017-11-29 14:52] LABS: IMMUNOGLOBULIN G 267 MG/DL (681-1648); IMMUNOGLOBULIN M 20 MG/DL (40-230); TOTAL PROTEIN 5.7 GM/DL (6.4-8.2)
[2017-12-01 00:07] LABS: FREE KAPPA LIGHT CHAINS SERUM 1.5 mg/L (3.3-19.4); FREE LAMBDA LIGHT CHAINS SERUM 1.8 mg/L (5.7-26.3); KAPPA/LAMBDA RATIO SERUM 0.83 (0.26-1.65)
[2017-12-03 13:28] LABS: ALBUMIN 3.71 GM/DL (3.29-5.55); ALBUMIN % 65.1 % (55.8-66.1); ALPHA-1-GLOBULINS 0.31 GM/DL (0.17-0.41)
[2017-12-03 13:29] LABS: ALPHA-1-GLOBULIN % 5.5 % (2.9-4.9); ALPHA-2-GLOBULINS 0.82 GM/DL (0.42-0.99); ALPHA-2-GLOBULINS % 14.3 % (7.1-11.8); BETA-1-GLOBULINS 0.34 GM/DL (0.28-0.60); BETA-2-GLOBULINS 0.26 GM/DL (0.19-0.55); BETA-2-GLOBULINS % 4.6 % (3.2-6.5); GAMMA GLOBULIN % 4.5 % (11.1-18.8); GAMMA GLOBULINS 0.26 GM/DL (0.65-1.58)
== END ==
LOC: M LAB REF 13:57
DX: C90.00 Multiple myeloma not having achieved remission (principal); C79.51 Secondary malignant neoplasm of bone; I26.99 Other pulmonary embolism without acute cor pulmonale; L27.0 Generalized skin eruption due to drugs and medicaments taken internally; Z79.899 Other long term (current) drug therapy
CPT/HCPCS: 84165

== ENCOUNTER → 2017-12-10 | Outpatient (CLI) | payer MEDICARE, OTHER | LOC: M RAD 09:53 | DX: C90.00 Multiple myeloma not having achieved remission (principal); M16.11 Unilateral primary osteoarthritis, right hip; I70.292 Other atherosclerosis of native arteries of extremities, left leg | CPT/HCPCS: 73552 ==

== ENCOUNTER → 2018-07-04 | Outpatient (CLI) | payer MEDICARE, OTHER ==
[~2018-07-04] MED LIST changes: -ACET1TAB17 PO; +ACET1TAB55 PO; +ACYC1CAP20 PO; -ASPI1TAB PO; +ASPI81TA26 PO; +BACT800T5 PO; +CLAR10CA3 PO; -DOCQ100C PO; +DOCQ100C5 PO; +ESCI10TA2 PO; +FLON1SPR; +MONT10TA2 PO; +MUCI600T37 PO; +PROBCAP14 PO; -PROC10TA PO; +PROC10TA4 PO; +TRAM50TA2 PO; +VALA1TAB2 PO; +VALT1TAB PO; +VENTAER INH; -ZOFR20TA PO; +ZOFR4TAB16 PO
--- NOTE | 2018-07-04 15:37 | REP ---
Chest two views HISTORY: Cough Comparison: 05/02/2016 There is elevation of the right hemidiaphragm. The lungs are clear. The heart is normal in size. The pulmonary vasculature is normal in appearance. There are old bilateral rib fractures. IMPRESSION: No acute disease. Electronically Signed by Kapil Eli MD 07/04/2018 03:29 P
== END ==
LOC: M RAD 14:25
PROVIDERS: ATTEND Internal Medicine Medical Oncology
DX: R05 Cough (principal)

== ENCOUNTER → 2018-07-25 | Outpatient (CLI) | payer MEDICARE, OTHER ==
--- NOTE | 2018-07-31 07:22 | SLEEPCENT ---
DATE OF STUDY: 07/25/2018 ORDERED BY: Dr. Colin Nocturnal polysomnography was performed for reevaluation of sleep physiology in this patient with a prior history of obstructive sleep apnea syndrome who has accomplished significant weight loss. 8 hours and 34 minutes of data were reviewed. There were 374 minutes of sleep identified. Sleep latency was mildly prolonged at 42 minutes. Rapid eye movement (REM) latency likewise was 149 minutes. Sleep architecture showed fragmentation. There were 2 REM cycles noted. Overall sleep efficiency was 74%. The electrocardiogram showed a sinus rhythm with an average heart rate of 50 beats per minute. Rate ranged 40-65. Electroencephalogram (EEG) showed essentially normal waveforms for wake and sleep stages. There were 86 respiratory events identified of 10 seconds in duration or greater for an apnea-hypopnea index of 13.8. The events were primarily obstructive, not exclusive to sleep stage nor body posture. Arousals from respiratory events occurred 7.2 times per hour and oxygen desaturations were seen into the 80s. There was also some limb activity appreciated. There were 4-5 trains of 30 events. Limb movement arousal index was borderline at 8.7. IMPRESSION: 1. Obstructive sleep apnea syndrome (G47.33). Apnea-hypopnea index of 13.8. 2. Possible periodic limb movement disorder (G47.61). Limb movement arousal index of 8.7. RECOMMENDATION: The patient should be encouraged to return to the sleep disorder center for pressure therapy. In the interim, alcohol and sedative avoidance should be practiced and caution exercised during the operation of motor vehicles. Pending response to pressure therapy, interventions to reduce the frequency of arousals from limb activity may also be helpful.
== END ==
LOC: M SLEEP 19:32
PROVIDERS: ATTEND Internal Medicine Pulmonary Disease
DX: G47.33 Obstructive sleep apnea (adult) (pediatric) (principal)

== ENCOUNTER → 2018-08-26 | Outpatient (CLI) | payer MEDICARE, OTHER ==
[~2018-08-26] MED LIST changes: +LEXA5TAB13 PO
--- NOTE | 2018-08-28 09:31 | SLEEPCENT ---
DATE OF STUDY: 08/26/2018 ORDERED BY: Dr. Colin Nocturnal polysomnography was performed for the titration of pressure therapy in this patient with obstructive sleep apnea syndrome. Apnea-hypopnea index of 11.8. For testing the patient was fit with a ResMed AirFit full face mask of large size, 4 cm of water pressure were initially applied to the circuit the lights were extinguished. 8 hours and 31 minutes of data were reviewed. There were 363 minutes of sleep identified. Sleep latency was short at 20.5 minutes. REM latency was mildly prolonged at 130 minutes. Sleep architecture was good with three REM cycles noted. Overall sleep efficiency 72%. The electrocardiogram showed a sinus rhythm with an average heart rate of 55 beats per minute. EEG showed reasonably normal waveforms for awake and sleep. Respiratory events were fairly well palliated with CPAP at a pressure of +8. There was some activity noted in the limb EMG leads. Limb movement arousal index on this occasion was 14.7. IMPRESSION: Obstructive sleep apnea syndrome (G47.33) RECOMMENDATIONS: Nightly use of pressure therapy 8 cm of water.
== END ==
LOC: M SLEEP 19:36
PROVIDERS: ATTEND Internal Medicine Pulmonary Disease
DX: G47.33 Obstructive sleep apnea (adult) (pediatric) (principal)

== ENCOUNTER → 2018-09-09 | Outpatient (REF) | payer MEDICARE, OTHER | LOC: M LAB REF 15:24 | PROVIDERS: ATTEND Nurse Practitioner Family | DX: L08.9 Local infection of the skin and subcutaneous tissue, unspecified (principal) ==

== ENCOUNTER → 2018-12-19 | Outpatient (REF) | payer MEDICARE, OTHER ==
[~2018-12-19] MED LIST changes: +DECA4TAB PO
[2018-12-19 12:43] LABS: CHOLESTEROL RISK RATIO 5.065 (<5)
== END ==
LOC: M LAB REF 09:57
PROVIDERS: ATTEND Internal Medicine
DX: E78.00 Pure hypercholesterolemia, unspecified (principal)

== ENCOUNTER → 2019-04-16 | Outpatient (CLI) | payer MEDICARE, OTHER ==
[~2019-04-16] MED LIST changes: -MONT10TA2 PO; +MONT10TA4 PO; -VALA1TAB2 PO; +VALA1TAB5 PO
--- NOTE | 2019-04-17 16:57 | REP ---
PET/CT: History: Restaging multiple myeloma. Comparisons: No relevant comparison studies. TECHNIQUE: 48 minutes following the intravenous injection of a 8.94 mCi dose of F-18 FDG, three-dimensional PET scintigraphy is acquired from the skull vertex to the toes . Triplanar noncontrast CT scanning is acquired through the same anatomic range for attenuation correction, and image registration with scan parameters optimized to minimize radiation exposure to the patient. PET scintigraphy and CT datasets were fused and displayed on a workstation with multiplanar and projection display capability. PET/CT Findings: Head and neck soft tissues are unremarkable. There is no abnormal hypermetabolic uptake within the thorax. In the abdomen and pelvis, there is normal hepatic, splenic, gastrointestinal, and genitourinary FDG accumulation. There are multiple skeletal hypermetabolic foci consistent with the patient's myeloma. These include a focus of hypermetabolic uptake in the right posterior iliac bone where maximum standard uptake value is 19.42. There is mildly increased FDG accumulation in the right superior iliac crest, maximum standard uptake value 5.04. There is hypermetabolic uptake in the left inferior scapular tip, maximum standard uptake value 10.63. There is hypermetabolic uptake along the left lateral scapular border, maximum standard uptake value 4.49. There is a hypermetabolic lesion in the lower cervical spine where maximum standard uptake value is 15.15. This appears to be is seen C4 or C5 vertebral body level, to the left of midline. No other skeletal hypermetabolic focus is seen. There are multiple healed or healing rib fractures bilaterally. Impression: Multiple skeletal foci of hypermetabolic uptake consistent with myelomatous lesions versus skeletal metastatic disease. These include a mid cervical spine lesion, C4 or C5. This extends to the posterior margin of the C5 vertebral body, consider MRI scanning of the cervical spine to rule out epidural involvement. Electronically Signed by Wil Ash MD 04/17/2019 05:19 P
== END ==
LOC: M PLARAD 12:59
PROVIDERS: ATTEND Internal Medicine Medical Oncology
DX: C90.00 Multiple myeloma not having achieved remission (principal)

== ENCOUNTER → 2019-04-21 | Outpatient (CLI) | payer MEDICARE, OTHER ==
[~2019-04-21] MED LIST changes: +PROHANCE 279.3MG/ML 15ML VIAL (A9576) As Ordered ONE; +PROHANCE 279.3MG/ML 5ML VIAL (A9576) As Ordered ONE
--- NOTE | 2019-04-21 14:04 | REPVR ---
PROCEDURE INFORMATION: Exam: MR Cervical Spine Without and With Contrast Exam date and time: 04/21/2019 10:32 AM Age: 79 years old Clinical indication: Condition or disease; Other: Multiple myeloma; Additional info: Eval epidural involvement TECHNIQUE: Imaging protocol: Multiplanar magnetic resonance images of the cervical spine without and with intravenous contrast. Contrast material: PROHANCE; Contrast volume: 19 ml; Contrast route: IV; COMPARISON: No relevant prior studies available. FINDINGS: Vertebrae: There is a diffuse marrow infiltrative process, compatible with submitted history of multiple myeloma. There is a severe pathologic fracture at C5. There is a mild C6 pathologic fracture. There is a moderate T2 pathologic fracture. Spinal cord: The cervicomedullary junction and cervical cord appear normal. There is no epidural spread of tumor. C2-C3: No significant disc disease. No significant spinal stenosis. C3-C4: There is a shallow disc osteophyte complex. There is moderate facet hypertrophy. There is mild left neural foraminal narrowing. C4-C5: There is a diffuse disc osteophyte complex. There is mild right and moderate left facet hypertrophy. There is severe left neural foraminal narrowing. C5-C6: There is a diffuse disc osteophyte complex. There is moderate facet hypertrophy. The spinal canal and neural foramina are patent. C6-C7: There is a shallow disc osteophyte complex. There is moderate facet hypertrophy. There is severe right and mild left neural foraminal narrowing. C7-T1: No significant disc disease. No significant spinal stenosis. Vertebral arteries: Expected flow voids in the vertebral arteries. Soft tissues: Unremarkable. IMPRESSION: Findings compatible with diffuse multiple myeloma, with pathologic fractures. No epidural extension of disease. Electronically signed by: Hemalatha Case On 04/21/2019 14:03:34 PM
== END ==
LOC: M RAD 08:37
PROVIDERS: ATTEND Internal Medicine Medical Oncology
DX: C90.00 Multiple myeloma not having achieved remission (principal)
CPT/HCPCS: 72156; A9576

== ENCOUNTER → 2019-06-25 | Outpatient (CLI) | payer MEDICARE, OTHER ==
[~2019-06-25] MED LIST changes: +CYCL1CAP2 PO; +OLAN10TA2 PO; +ONDA8TAB10 PO; -PROHANCE 279.3MG/ML 15ML VIAL (A9576) As Ordered ONE; -PROHANCE 279.3MG/ML 5ML VIAL (A9576) As Ordered ONE; +[UNRECOGNIZED DRUG - CODE] IV
[2019-06-25 12:33] LABS: BASO % 0.3 % (0.0-1.0); EOS # 0.1 10^3/uL (0.0-0.5); EOS % 1.7 % (0.0-3.0); HEMATOCRIT 42.9 % (42.0-52.0); HEMOGLOBIN 14.2 g/dl (13.5-17.5); LYMPH # 1.7 10^3/uL (1.5-5.0); LYMPH % 26.3 % (24.0-44.0); MEAN CORPUSCULAR HEMOGLOBIN 31.8 pg (27.0-33.0); MEAN CORPUSCULAR HGB CONC 33.1 g/dl (32.0-36.5); MEAN CORPUSCULAR VOLUME 96.2 fl (80.0-96.0); MONO # 0.5 10^3/uL (0.0-0.8); NEUTROPHILS # 4.1 10^3/uL (1.5-8.5); NEUTROPHILS % 62.9 % (36.0-66.0); PLATELET COUNT, AUTOMATED 116 10^3/uL (150-450); RED BLOOD COUNT 4.46 10^6/uL (4.30-6.10); WHITE BLOOD COUNT 6.5 10^3/uL (4.0-10.0)
[2019-06-25 12:55] LABS: ALBUMIN 3.3 GM/DL (3.2-5.2); ALT/SGPT 40 U/L (12-78); BILIRUBIN,TOTAL 0.3 MG/DL (0.2-1.0); BLOOD UREA NITROGEN 26 MG/DL (7-18); CARBON DIOXIDE LEVEL 30 MEQ/L (21-32); CHLORIDE LEVEL 105 MEQ/L (98-107); GLOMERULAR FILTRATION RATE > 60.0 (>35); GLUCOSE, FASTING 88 MG/DL (70-100); SODIUM LEVEL 140 MEQ/L (136-145)
== END ==
LOC: M LAB 11:51
PROVIDERS: ATTEND Internal Medicine Medical Oncology
DX: C90.00 Multiple myeloma not having achieved remission (principal)

== ENCOUNTER 2020-02-24 15:00 | Emergency (ER) | payer MEDICARE, OTHER ==
[~2020-02-24] VITALS: Ht 180.3 cm; Wt 91.8 kg
[~2020-02-24 15:00] MED LIST changes: +CIPR500T3 PO; +EMEN80PA PO; +ENAL-36 PO; -ENAL20TA PO; +ENAL20TA11 PO; -MONT10TA4 PO; +MONT5TAB2 PO
[2020-02-24 16:42] VITALS: BP 163/83
== END 2020-02-24 16:43 | disposition home or self-care (01) ==
LOC: M ED 15:00
DX: H11.32 Conjunctival hemorrhage, left eye (principal); C90.02 Multiple myeloma in relapse; C79.51 Secondary malignant neoplasm of bone; I11.9 Hypertensive heart disease without heart failure; Z86.711 Personal history of pulmonary embolism; Z79.899 Other long term (current) drug therapy; Z79.01 Long term (current) use of anticoagulants; Z88.8 Allergy status to other drugs, medicaments and biological substances

== ENCOUNTER → 2020-08-09 | Outpatient (CLI) | payer MEDICARE, OTHER ==
[~2020-08-09] MED LIST changes: +ACYC1TAB PO; -ACYC400T PO; +COVI100V IM; +ESCI10TA16 PO; -ESCI10TA2 PO; +HYDR-3490 PO; -HYDR25TAB PO; +MONT10TA10 PO; -MONT5TAB2 PO; +TIMOXEOPD OU
--- NOTE | 2020-08-09 20:24 | ECHO ---
ECHOCARDIOGRAM DATE OF PROCEDURE: 08/09/2020 Age: 80 Gender: Male Height: 180 cm Weight: 95 kg REFERRING PHYSICIAN: Deepika Au M.D. INDICATION: Multiple myeloma without remission. MEASUREMENTS: IVS 1.1 cm LV 5.3 cm LVPW 1.1 cm LA 3.8 cm Aorta 3.8 cm Mitral E wave velocity 53 cm/s Mitral A wave 77 cm/s E prime septal 2.9 cm/s E prime lateral 5.7 cm/s FINDINGS: This study is of acceptable technical quality. Underlying sinus bradycardia with heart rate in the 50s. Normal LV size with preserved LV systolic function. Calculated LVEF was 58%, which appears believable. Right ventricle is also normal size and systolic function. Both atria are probably normal size. Aortic valve is minimally sclerotic, but it has three cusps and preserved mobility. There are mild degenerative abnormalities of the mitral valve with mitral annular calcifications, but mobility of leaflets is preserved. Tricuspid and pulmonic valves appear normal. No pericardial effusion is noted. Inferior vena cava was not well seen. The aortic root is normal. Aortic arch and abdominal aorta were not well visualized. Doppler interrogation of the aortic valve reveals no stenosis and mild insufficiency. There is also mild mitral and tricuspid insufficiency. Calculated pulmonary artery pressure is within normal limits. Mitral inflow pattern and tissue Doppler imaging of the mitral annulus revealed grade 1 diastolic dysfunction. CONCLUSIONS: 1. Study is of acceptable technical quality, underlying sinus bradycardia. 2. Normal LV size with preserved LV systolic function and grade 1 diastolic dysfunction. 3. Minimal aortic sclerosis with no stenosis and mild insufficiency. 4. Mild mitral insufficiency. 5. Unable to estimate central venous pressure, but likely normal pulmonary artery pressure. 6. Borderline dilated aortic root (3.8 cm).
== END ==
LOC: M CARPUL 14:16
PROVIDERS: ATTEND Internal Medicine Medical Oncology
DX: C90.00 Multiple myeloma not having achieved remission (principal); I34.0 Nonrheumatic mitral (valve) insufficiency

== ENCOUNTER → 2020-09-21 | Outpatient (CLI) | payer MEDICARE, OTHER ==
[~2020-09-21] MED LIST changes: +LEVO500T3 PO; +LOPE-39 PO; -OLAN10TA2 PO; +OLAN1TAB20 PO
--- NOTE | 2020-09-21 11:59 | REP ---
INDICATION: BACK PAIN. COMPARISON: Chest radiographs 07/04/2018. TECHNIQUE: Three AP and lateral views thoracic spine peer FINDINGS: There is mild chronic loss of height of the T3, T4, T5 and T7 vertebral bodies. No new compression deformity is seen. There is normal thoracic kyphosis. There is mild narrowing of the T9-10 disc space, otherwise the disc spaces appear relatively well preserved. There is mild diffuse spurring. The posterior elements are intact. IMPRESSION: Stable chronic findings as discussed above. <Electronically signed by Jake Yuan > 09/21/20 [id number]
--- NOTE | 2020-09-21 12:02 | REP ---
INDICATION: BACK PAIN. COMPARISON: 09/18/2012. TECHNIQUE: Five views lumbosacral spine. FINDINGS: There is no acute compression fracture. There is normal lumbar lordosis. Moderate spurring is noted on the right of the L2 and L3 vertebral bodies, with mild spurring elsewhere diffusely. There is moderate disc space narrowing and subchondral sclerosis at L2-3. There is mild disc space narrowing and subchondral sclerosis at L4-5. There is moderate narrowing at L5-S1 with subchondral sclerosis. There is spurring and sclerosis at the facets of L4-5 and L5-S1. There is mild curvature toward the left. The posterior elements are intact. IMPRESSION: No acute compression deformity. Degenerative disc changes as discussed above appears similar to the prior exam. <Electronically signed by Jake Yuan > 09/21/20 [id number]
== END ==
LOC: M RAD 09:56
PROVIDERS: ATTEND Internal Medicine Medical Oncology
DX: M54.5 Low back pain (principal)

== ENCOUNTER → 2020-10-04 | Outpatient (CLI) | payer MEDICARE, OTHER ==
[~2020-10-04] MED LIST changes: +AMLO1TAB25 PO; +AMOX500T2; +AUGM500T34 PO; +CETI-24 PO; +CLAR250T22 PO; +CLOT1CRE56 TOP; +CLOTR1CR TOP; +FAMO1TAB11 PO; +FLUC100T3 PO; +FLUC200T4 PO; -LEVO500T3 PO; +LEVO500T4 PO; +LEXA1TAB2; +LIDO1CRE42 TOP; +LIDO2SO SS; +LIDO2SO SSP; +LIDOCAINE 1% MDV 20ML VIAL As Ordered ONE; +MAGICMW PO; +MIDAZOLAM INJ 2MG/2ML VIAL (J2250 PER 1MG) As Ordered ONE; -MONT10TA10 PO; +MONT10TA97 PO; +MORP15TA2 PO; +NALOXONE INJ 0.4MG/1ML VIAL (J2310 PER 1MG) As Ordered ONE; +NS 1,000 ML IV SCH; +ONDA-84 PO; -ONDA8TAB10 PO; +OXYC1TAB23 PO; +POMA1CAP PO; +POMA2CAP; +POMA2CAP PO; +PRAV80TA2; +PRAV80TA2 PO; -PROC10TA4 PO; +PROC10TA5 PO; +SUCR1ORA PO; +SUCR1SS PO; +TIMO0.5S39 OU; +TIMOXEOPD OD; -TIMOXEOPD OU; +ceFAZolin 2 GM/D5W 50 ML IV BAG (J0690 PER 500MG) As Ordered ONE; +ceFAZolin SOD 2 GM in IV 1 EA IV ONE; +diphenhydrAMINE 50MG/ML VIAL (J1200) As Ordered ONE; +fentaNYL 100 MCG/2 ML INJECTION As Ordered ONE
[2020-10-04 15:01] LABS: INR 0.98; PROTHROMBIN TIME 13.4 SECONDS (12.7-14.5)
[2020-10-04 16:47] VITALS: BP 109/69
== END ==
LOC: M IRPRO 13:42
PROVIDERS: ATTEND Internal Medicine Medical Oncology
DX: C90.00 Multiple myeloma not having achieved remission (principal); T88.59XA Other complications of anesthesia, initial encounter; X58.XXXA Exposure to other specified factors, initial encounter; Y92.234 Operating room of hospital as the place of occurrence of the external cause; Y99.9 Unspecified external cause status; Z79.01 Long term (current) use of anticoagulants
CPT/HCPCS: 36561; 85610; 99152; 99153; C1769; C1788; C1894; J0690; J1200; J1642; J1644; J2250; J2310; J3010

== ENCOUNTER → 2020-10-11 | Outpatient (CLI) | payer MEDICARE, OTHER ==
[~2020-10-11] MED LIST changes: -LIDOCAINE 1% MDV 20ML VIAL As Ordered ONE; -MIDAZOLAM INJ 2MG/2ML VIAL (J2250 PER 1MG) As Ordered ONE; -NALOXONE INJ 0.4MG/1ML VIAL (J2310 PER 1MG) As Ordered ONE; -NS 1,000 ML IV SCH; -ceFAZolin 2 GM/D5W 50 ML IV BAG (J0690 PER 500MG) As Ordered ONE; -ceFAZolin SOD 2 GM in IV 1 EA IV ONE; -diphenhydrAMINE 50MG/ML VIAL (J1200) As Ordered ONE; -fentaNYL 100 MCG/2 ML INJECTION As Ordered ONE
== END ==
LOC: M RAD 14:44
PROVIDERS: ATTEND Internal Medicine Medical Oncology
DX: M25.512 Pain in left shoulder (principal); M79.602 Pain in left arm; M65.232 Calcific tendinitis, left forearm; R91.8 Other nonspecific abnormal finding of lung field

== ENCOUNTER → 2020-10-19 | Outpatient (POV) | payer MEDICARE, OTHER ==
[~2020-10-19] VITALS: Ht 180.3 cm; Wt 93.1 kg
[~2020-10-19] MED LIST changes: -AMLO1TAB25 PO; -AMOX500T2; -AUGM500T34 PO; -CETI-24 PO; -CLAR250T22 PO; -CLOT1CRE56 TOP; -CLOTR1CR TOP; -FAMO1TAB11 PO; -FLUC100T3 PO; -FLUC200T4 PO; +LEVO500T3 PO; -LEVO500T4 PO; -LEXA1TAB2; -LIDO2SO SS; -LIDO2SO SSP; -MAGICMW PO; +MONT10TA10 PO; -MONT10TA97 PO; -MORP15TA2 PO; -ONDA-84 PO; +ONDA8TAB10 PO; -OXYC1TAB23 PO; -POMA1CAP PO; -POMA2CAP; -POMA2CAP PO; -PRAV80TA2; -PRAV80TA2 PO; +PROC10TA4 PO; -PROC10TA5 PO; -SUCR1ORA PO; -SUCR1SS PO; -TIMO0.5S39 OU; -TIMOXEOPD OD; +TIMOXEOPD OU
[2020-10-19 09:35] VITALS: BP 128/88
--- NOTE | 2020-10-21 09:04 | IRPN ---
[facility] IR Progress Note IR Progress Note DATE: Oct 19, 2020 FOLLOW-UP: Patient is status post port placement. Patient states he is doing well, no pain, discharge at site fevers or chills. Port has been used without any issues. ON EXAMINATION: Port site appears to be healing well. Steri-Strips are still in place. No redness swelling or discharge at site. IMPRESSION: Doing well status post port placement. No further follow-up scheduled unless initiated by patient and/or referring provider. Thank you for this referral Allergies Coded Allergies: pomalidomide (Verified Allergy, Intermediate, rash, 05/31/18) VS,Fishbone, I+O VS, Fishbone, I+O Vital Signs Date Time Temp Pulse Resp B/P (MAP) Pulse Ox O2 Delivery O2 Flow Rate FiO2 10/19/20 09:35 97.6 74 20 128/88 (101) 98 Room Air PARUL BAKER MD Oct 21, 2020 09:04
== END ==
LOC: M IRPOV 09:08
PROVIDERS: ATTEND Radiology Diagnostic Radiology
DX: Z45.2 Encounter for adjustment and management of vascular access device (principal)

== ENCOUNTER → 2020-10-21 | Outpatient (CLI) | payer MEDICARE, OTHER ==
--- NOTE | 2020-10-21 10:35 | REP ---
INDICATION: SKELETAL SURVEY. Multiple myeloma. COMPARISON: PET-CT 04/16/2019 as well as multiple other prior radiographs and CT exams. TECHNIQUE: Multiple radiographic images obtained. FINDINGS: AP and lateral views of the skull demonstrate multiple scattered subcentimeter round lucencies diffusely consistent with multiple myeloma. AP and lateral views of the cervical spine demonstrate a lucent lesion in C5 vertebral body. No compression fracture is seen. There is diffuse spurring, disc space narrowing and subchondral sclerosis. AP and lateral views of the thoracic spine again demonstrate mild chronic compression deformities of T3, T4, T5 and T7, unchanged. No acute compression fracture or malalignment is noted. There are mild diffuse degenerative disc changes. Subtle round lucent lesions are scattered throughout several thoracic vertebral bodies. Bilateral ribs show a few scattered old fractures bilaterally as seen on the prior PET-CT. AP and lateral views of the lumbar spine demonstrate diffuse degenerative changes with no acute fracture or dislocation. No discrete lucent lesions are seen radiographically. AP view of the pelvis demonstrates a mixed density lesion at the right iliac crest. Subtle lucent lesions are seen in both iliac bones. AP views of both femurs demonstrate scattered subtle subcentimeter lucent lesions throughout both femurs. AP views of both humeri demonstrate multiple subcentimeter lucent lesions diffusely bilaterally. IMPRESSION: Skeletal survey demonstrates multiple lucent lesions involving multiple skeletal structures as discussed in detail above. This is consistent with the patient's diagnosis of multiple myeloma. <Electronically signed by Jake Yuan > 10/21/20 103
== END ==
LOC: M RAD 09:10
DX: C90.00 Multiple myeloma not having achieved remission (principal)

== ENCOUNTER → 2020-11-26 | Outpatient (CLI) | payer MEDICARE, OTHER ==
[~2020-11-26] MED LIST changes: +CETI-24 PO; +FAMO1TAB11 PO; +MORP15TA2 PO; +OXYC1TAB23 PO; +POMA1CAP PO
--- NOTE | 2020-11-26 11:40 | REP ---
INDICATION: ARM PAIN, LIMP LT ARM. COMPARISON: Radiographs 10/21/2020. TECHNIQUE: Multiple sequences obtained prior to and following the intravenous administration of 18 cc ProHance. FINDINGS: Rotator cuff: There is a partial tear of the subscapularis tendon and the supraspinatus tendon. Acromioclavicular joint: There are mild hypertrophic degenerative changes of the acromioclavicular joint. Acromion: Type 2 Biceps Tendon: The proximal biceps tendon is at least partially torn. Hill Sach's deformity: None. Deltoid muscle: No abnormal signal. Biceps labral complex: There is a tear of the biceps labral complex. Labrum: There is a tear of the superior labrum. Cartilage: There is moderate diffuse chondromalacia at the glenohumeral joint. Bone marrow: Multiple subcentimeter bone lesions are seen in the humeral head consistent with the patient's history of multiple myeloma. Joint fluid: There is a small joint effusion. There is mild fluid in the subacromial/subdeltoid bursae. IMPRESSION: There is a partial tear of the subscapularis and supraspinatus tendons. There are mild hypertrophic degenerative changes of the acromioclavicular joint. There is a tear of the proximal biceps tendon, likely a high-grade partial tear. There is a tear of the biceps labral complex. There is tear of the superior labrum. Moderate diffuse chondromalacia at the glenohumeral joint. Small joint effusion. Multiple subcentimeter bone lesions the humeral head consistent with multiple myeloma. <Electronically signed by Jake Yuan > 11/26/20 [id number]
--- NOTE | 2020-11-26 11:51 | REP ---
INDICATION: ARM PAIN, LIMP LT ARM. COMPARISON: Radiographs 10/21/2020. TECHNIQUE: Multiple sequences obtained prior to and following the intravenous administration of 18 cc ProHance. FINDINGS: There is diffuse marrow replacement of the body of the scapula inferolaterally, low in signal on T1 and high in signal on T2. There is diffuse enhancement in this region. The findings are consistent with a large bone lesion likely related to multiple myeloma given the patient's history. There is mild diffuse surrounding soft tissue edema. Multiple subcentimeter bone lesions are seen in the head of the humerus. IMPRESSION: Large enhancing bone lesion of the lower body of the scapula. There is diffuse soft tissue edema surrounding the scapula. Multiple subcentimeter bone lesions in the humeral head. These findings are consistent with the patient's history of multiple myeloma. Please see the MRI shoulder report for further findings with regard to the shoulder joint. <Electronically signed by Jake Yuan > 11/26/20 [id number]
== END ==
LOC: M PLARAD 07:57
PROVIDERS: ATTEND Internal Medicine Medical Oncology
DX: S46.902A Unspecified injury of unspecified muscle, fascia and tendon at shoulder and upper arm level, left arm, initial encounter (principal); X58.XXXA Exposure to other specified factors, initial encounter; Y92.9 Unspecified place or not applicable

== ENCOUNTER → 2020-12-02 | Outpatient (CLI) | payer MEDICARE, OTHER ==
[~2020-12-02] MED LIST changes: +LEXA1TAB2; +POMA2CAP PO; +PRAV80TA2
== END ==
LOC: M ONCR 12:53
PROVIDERS: ATTEND Radiology Radiation Oncology
DX: C90.02 Multiple myeloma in relapse (principal); E78.00 Pure hypercholesterolemia, unspecified; E78.5 Hyperlipidemia, unspecified; G47.33 Obstructive sleep apnea (adult) (pediatric); I10 Essential (primary) hypertension; Z85.820 Personal history of malignant melanoma of skin; Z85.828 Personal history of other malignant neoplasm of skin; Z86.711 Personal history of pulmonary embolism

== ENCOUNTER 2020-12-28 14:34 | Outpatient (RCR) | payer MEDICARE, OTHER | END 2021-01-02 | LOC: M ONCR 14:34 | PROVIDERS: ATTEND General Practice | DX: C90.02 Multiple myeloma in relapse (principal); M25.512 Pain in left shoulder ==

== ENCOUNTER → 2021-01-03 | Outpatient (CLI) | payer MEDICARE, OTHER ==
--- NOTE | 2021-01-03 16:15 | REP ---
INDICATION: JAW PAIN. COMPARISON: 10/21/2020 TECHNIQUE: AP, bilateral lateral, López, and Ama view FINDINGS: Once again, note is made of numerous skull lucencies all unchanged. IMPRESSION: No change from 10/21/2020. <Electronically signed by Benigno Raphael > 01/03/21 [id number]
--- NOTE | 2021-01-03 16:22 | REP ---
INDICATION: JAW PAIN. COMPARISON: None. TECHNIQUE: Five limited plain radiographic images of the mandible. FINDINGS: There is no evidence of a gross fracture. IMPRESSION: Plain film examination of the mandible is limited. The gold standard for imaging the mandible is CT. Consider CT. <Electronically signed by Benigno Raphael > 01/03/21 [id number]
== END ==
LOC: M RAD 15:35
PROVIDERS: ATTEND Internal Medicine Medical Oncology
DX: R68.84 Jaw pain (principal)

== ENCOUNTER → 2021-02-01 | Outpatient (CLI) | payer MEDICARE, OTHER ==
[~2021-02-01] MED LIST changes: +AMLO1TAB25 PO; +AMOX500T2; +AUGM500T34 PO; +CLAR250T22 PO; +CLOT1CRE56 TOP; +CLOTR1CR TOP; +FLUC100T3 PO; +FLUC200T4 PO; -LEVO500T3 PO; +LEVO500T4 PO; +LIDO2SO SS; +LIDO2SO SSP; +MAGICMW PO; -MONT10TA10 PO; +MONT10TA97 PO; +ONDA-84 PO; -ONDA8TAB10 PO; +POMA2CAP; +PRAV80TA2 PO; -PROC10TA4 PO; +PROC10TA5 PO; +SUCR1ORA PO; +SUCR1SS PO; +TIMO0.5S39 OU; +TIMOXEOPD OD; -TIMOXEOPD OU
== END ==
LOC: M RAD 10:05
PROVIDERS: ATTEND Internal Medicine Medical Oncology
DX: R29.6 Repeated falls (principal)

== ENCOUNTER 2021-02-14 10:43 | Inpatient (IN) | payer MEDICARE, OTHER ==
[~2021-02-14] VITALS: Ht 177.8 cm; Wt 89.9 kg
[~2021-02-14 10:43] MED LIST changes: -AMLO1TAB25 PO; -AMOX500T2; -CLAR250T22 PO; -CLOT1CRE56 TOP; -CLOTR1CR TOP; -FLUC100T3 PO; -FLUC200T4 PO; +LEVO500T3 PO; -LEVO500T4 PO; -LIDO2SO SS; -LIDO2SO SSP; -MAGICMW PO; +MONT10TA10 PO; -MONT10TA97 PO; -ONDA-84 PO; +ONDA8TAB10 PO; -POMA2CAP; -PRAV80TA2 PO; +PROC10TA4 PO; -PROC10TA5 PO; -SUCR1ORA PO; -SUCR1SS PO; -TIMO0.5S39 OU
--- OUTSIDE RECORDS SUMMARY | 2021-02-14 10:50 | CCD | Continuity of Care Document ---
Author Author Silver PAINTING MD Organization Unknown Address [address], [address] [place] [address] Phone [phone] Care Team Providers Care Rehabilitation Services Coordinator Name Role Phone Herbert Salguero MD @ [facility] Int AUTM AUTM Unavailable Problems Active Problems Provider Date Bleeding from nose Wyatt Waddell MD Onset: 08/22/2017 Social History Type Date Description Comments Sex Unknown ETOH Use Denies alcohol use Tobacco Use Start: Unknown Patient has never smoked Smoking Status Reviewed: 01/05/20 Patient has never smoked Allergies and adverse reactions Active Allergies Criticality Reaction | Severity Comments Date Pomalyst Unable to assess criticality rash 10/28/2019 Inactive Allergies NKDA Unable to assess criticality 08/15/2017 Medications Active Medications SIG Qnty Indications Ordering Provide r Date Finasteride 5mg Tablets 1 by mouth every day Unknown Pravastatin Sodium 40mg Tablets 1 by mouth every day Unknown Lumigan 0.01% Solution 1 drop right eye every night Unknown Eliquis 5mg Tablets 1 by mouth twice a day hx dvt managed by oncology Unknown Escitalopram Oxalate 5mg Tablets 1 by mouth every day Unknown Acyclovir 400mg Tablets 1 tab by mouth twice a day 15tabs Unknown Singulair 10mg Tablets 1 by mouth on treatment weeks Unknown CPAP Device 8cm marras Unknown Dexamethasone 4mg Tablets once weekly as directed by oncology Deepika Au M.D. Xgeva 120mg/1.7ML Solution 1 inj monthly Unknown Famotidine 20mg Tablets 1 tab by mouth every day Unknown Enalapril Maleate 10mg Tablets 1 by mouth every day Unknown Zyrtec Allergy 10mg Capsules 1 by mouth every day Unknown Timolol Maleate 0.5% Solution 1 drop both eyes every day Unknown Amoxicillin/Clavulanate Potassium 500-125mg Tablets 1 by mouth twice a day Unknown Immunizations CPT Code Status Date Vaccine Lot # [id number] Given 12/01/2015 Influenza Virus Split 3 Yrs And Above For Intramuscular Use Vital Signs Date Vital Result Comment 02/10/2021 10:28am BP Systolic 140 mmHg BP Diastolic 90 mmHg Heart Rate 58 /min O2 % BldC Oximetry 98 % Height 71 inches 5'11" Weight 201.00 lb BMI (Body Mass Index) 28.0 kg/m2 [place] Body Weight 172 lb Weight 91.174 kg BSA (Body Surface Area) 2.11 m2 01/05/2020 8:31am BP Systolic 108 mmHg BP Diastolic 68 mmHg Heart Rate 70 /min O2 % BldC Oximetry 98 % Room Air Height 71 inches 5'11" Weight 208.00 lb BMI (Body Mass Index) 29.0 kg/m2 [place] Body Weight 172 lb Weight 94.349 kg BSA (Body Surface Area) 2.14 m2 Results Description No Information Available Procedures Date Code Description Status 02/10/2021 83870 Office/Outpatient New Low MDM 30 -44 Minutes Completed 02/10/2021 27358 Myringotomy W/ Aspiration/Eust[place] hian Tube Inflate Completed 02/10/2021 93545 Endoscopy Nasal Diagnostic Compl eted Medical Devices Description No Information Available Encounters Type Date Location Provider Dx Diagnosis Office Visit 02/10/2021 10:15a [facility] Duarte Delgado R42 Dizziness and giddiness H91.93 Unspecified hearing loss, bi lateral H65.01 Acute serous otitis media, r ight ear Assessments Date Code Description Provider 02/10/2021 R42 Dizziness and giddiness Drew arvizu MD 02/10/2021 H91.93 Unspecified hearing loss, bilate ral Drew Painting MD 02/10/2021 H65.01 Acute serous otitis media, right ear Drew Painting MD Plan of Treatment Future Appointment(s):* 02/23/2021 1:15 pm - Drew Painting MD at [facility] Functional Status Description No Information Available Mental Status Description No Information Available Referrals Refer to Dr Reason for Referral Status Appt Date Drew Painting M.D. Created [address] [address] [phone]
--- OUTSIDE RECORDS SUMMARY | 2021-02-14 10:50 | CCD ---
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 Name Role Phone Ruben BABIN, CHRIS, Drew Vargas Unavailable [phone] Jose M PINA MD, Herbert Espitia PP [phone] Reason for Referral No Reason for Referral Recorded Problems Includes: Active, inactive, and resolved Problems All Visits Onset Date - Time Resolved Date - Time Provider Co ndition Status Subconjunctival Hemorrhage 02/25/2020 - 12:00AM 04/19/2020 - 12: 37PM Drew Miranda MD, FACS Resolved Refractive Error - Myopia 04/01/2019 - 12:00AM Drew Miranda MD, FACS Active Conjunctivitis Acute Atopic 09/18/2018 - 12:00AM Drew Miranda MD, FACS Inactive Conjunctivitis Chronic Allergic 09/18/2018 - 12:00AM Drew Miranda MD, FACS Active Epidermal Inclusion Cyst 09/18/2018 - 12:00AM Drew Miranda MD, FACS Active Glaucoma Open-angle Primary Left Eye 05/24/2017 - 12:00AM Drew Miranda MD, FACS Active Posterior Capsule Opacification Eccentric Capsule Righ t Eye 05/24/2017 - 12:00AM Drew Miranda MD, FACS Inactive Strabismus Non-paralytic Heterophoria Esophoria 05/24/2017 - 12: 00AM Drew Miranda MD, FACS Active Pseudophakia 05/24/2017 - 12:00AM Drew Miranda MD, FACS Active Strabismus Paralytic Sixth Nerve Palsy Right Eye 05/24/2017 - 12 :00AM Drew Miranda MD, FACS Active Multiple Myeloma Nephropathy 11/24/2016 - 12:00AM Drew Miranda MD, FACS Active Secondary Cataract Right Eye Grade ___+ 03/25/2015 - 12:00AM Drew Hugo MD, FACS Inactive Note: Unchanged Dermatochalasis Both Eyelids 05/14/2014 - 12:00AM Drew Miranda MD, FACS Inactive Note: Unchanged Glaucoma Open-angle Primary Right Eye 02/18/2014 - 12:00AM Drew Miranda MD, FACS Active Note: Unchanged Cataract Senile Cortical 02/18/2014 - 12:00AM Unknown - Unknown Drew Hugo MD, FACS Resolved Note: Unchanged - left eye Cataract Senile Nuclear 02/18/2014 - 12:00AM Unknown - Unknown Liat Hugo MD, FACS Resolved Note: Unchanged - both eyes Cataract Senile Posterior Subcapsular Polar 02/18/2014 - 12: 00AM Unknown - Unknown Drew Miranda MD, FACS Resolved Note: Unchanged - right eye Drusen Both Eyes 02/18/2014 - 12:00AM Drew springer MD, FACS Active Note: Unchanged Eyelid Dermatochalasis Both Eyes 02/18/2014 - 12:00AM Drew Miranda MD, FACS Inactive Note: Unchanged - upper and lower Glaucoma Stage Mild 02/18/2014 - 12:00AM Drew Lama MD, FACS Inactive Note: Unchanged Retinopathy Hypertensive Both Eyes 02/18/2014 - 12:00AM Drew Miranda MD, FACS Active Note: Unchanged Dry Eye Syndrome Both Eyes 02/18/2014 - 12:00AM Drew Miranda MD, FACS Active Note: Unchanged Vitreous Floaters Both Eyes 02/18/2014 - 12:00AM Drew Miranda MD, FACS Active Note: Unchanged Plan of Treatment Referrals To Diagnosis Referral to Dr. Weaver for cataract extraction Drew Lama MD, FACS Senile Nuclear Cataract Future Appointments Date Time Location Provider 5 Month Follow-Up 02/09/2021 2:30PM Drew Miranda MD, FACS Findings Encounter Date Ordered Transition in care, clinical sum sheridan provided (Referral letter faxed electronically to Dr. Weaver) IOP CHECK with Drew Miranda MD, FACS 03/18/2014 Requested Referred to: Dr. Weaver IOP CHECK with Drew Brenner MD, FACS 03/18/2014 Assessments Includes: Assessments for all patient encounters Findings Encounter Date Primary open-angle glaucoma of left eye IOP CHECK with Drew Miranda MD, FACS 09/30/2020 Primary open-angle glaucoma of right eye IOP CHECK wit h Drew Miranda MD, FACS 09/30/2020 Primary open-angle glaucoma of left eye IOP CHECK with Drew Miranda MD, FACS 05/18/2020 Primary open-angle glaucoma of right eye IOP CHECK wit h Drew Miranda MD, FACS 05/18/2020 Primary open-angle glaucoma of left eye IOP CHECK with Drew Miranda MD, FACS 04/19/2020 Primary open-angle glaucoma of right eye IOP CHECK wit h Drew Miranda MD, FACS 04/19/2020 Primary open-angle glaucoma of left eye EMERGENCY RM F KARON with Drew Hugo MD, FACS 02/25/2020 Primary open-angle glaucoma of right eye EMERGENCY RM FOLU with Drew Hugo MD, FACS 02/25/2020 Subconjunctival hemorrhage EMERGENCY RM FOLU with Drew Brenner MD, FACS 02/25/2020 Myopia 8 Week Follow-Up with Drew wiley MD, FACS 04/01/2019 Pseudophakia 8 Week Follow-Up with Drew wiley MD, FACS 04/01/2019 Posterior capsule opacification of eccentric capsule i n the right eye Yag Laser Capsulotomy - Global: 90 DAY POST OP with Drew Miranda MD, FACS 02/04/2019 Pseudophakia Yag Laser Capsulotomy - Glob al: 90 DAY POST OP with Drew Hugo MD, FACS 02/04/2019 Posterior capsule opacification of eccentric capsule i n the right eye TRIAGE NON URGENT with Drew Miranda MD, FACS 01/21/2019 Pseudophakia TRIAGE NON URGENT with Drew villegas MD, FACS 01/21/2019 Acute atopic conjunctivitis TRIAGE NON URGENT with Drew Miranda MD, FACS 09/18/2018 Chronic allergic conjunctivitis TRIAGE NON URGENT with Drew Miranda MD, FACS 09/18/2018 Epidermal inclusion cyst TRIAGE NON URGENT with Drew Mercer MD, FACS 09/18/2018 Esophoria Dilated Fundal Exam with Drew Hugo MD, FACS 07/24/2017 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 Dilated Fun augustus Exam with Drew Miranda MD, FACS 07/24/2017 Drusen of both eyes 7 Month Follow-Up with Drew villegas MD, FACS 05/24/2017 Esophoria 7 Month Follow-Up with Drew villegas MD, FACS 05/24/2017 Posterior capsule opacification of eccentric capsule i n the right eye 7 Month Follow-Up with Drew Miranda MD, FACS 05/24/2017 Primary open-angle glaucoma of left eye 7 Month Follow -Up with Drew Hugo MD, FACS 05/24/2017 Primary open-angle glaucoma of right eye 7 Month Follo w-Up with Drew Hugo MD, FACS 05/24/2017 Pseudophakia 7 Month Follow-Up with Drew villegas MD, FACS 05/24/2017 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 7 Month Fol low-Up with Drew Miranda MD, FACS 05/24/2017 Drusen of both eyes 7 Month Follow-Up with Drew villegas MD, FACS 11/24/2016 Essential hypertension 7 Month Follow-Up with Drew Wan MD, FACS 11/24/2016 Multiple myeloma nephropathy 7 Month Follow-Up with Cristian Miranda MD, FACS 11/24/2016 Posterior capsule opacification of eccentric capsule i n the right eye 7 Month Follow-Up with Drew Miranda MD, FACS 11/24/2016 Primary open-angle glaucoma of left eye 7 Month Follow -Up with Drew Hugo MD, FACS 11/24/2016 Primary open-angle glaucoma of right eye 7 Month Follo w-Up with Drew Hugo MD, FACS 11/24/2016 Pseudophakia in both eyes 7 Month Follow-Up with Drew Bennett MD, FACS 11/24/2016 Drusen of both eyes 5 Month Follow-Up with Drew villegas MD, FACS 04/06/2016 Essential hypertension 5 Month Follow-Up with Drew Wan MD, FACS 04/06/2016 Posterior capsule opacification of eccentric capsule i n the right eye 5 Month Follow-Up with Drew Miranda MD, FACS 04/06/2016 Primary open-angle glaucoma of right eye 5 Month Follo w-Up with Drew Hugo MD, FACS 04/06/2016 Pseudophakia in both eyes 5 Month Follow-Up with Drew Bennett MD, FACS 04/06/2016 Drusen of both eyes 7 Month Follow-Up and Testin g with Drew Miranda MD, FACS 11/18/2015 Dry eye syndrome of both eyes 7 Month Follow-Up and Te sting with Drew Hugo MD, FACS 11/18/2015 Essential hypertension 7 Month Follow-Up and Testin g with Drew Miranda MD, FACS 11/18/2015 Hypertensive retinopathy of both eyes 7 Month Follow-U p and Testing with Drew Miranda MD, FACS 11/18/2015 Posterior capsule opacification of eccentric capsule i n the right eye 7 Month Follow-Up and Testing with Drew Miranda MD, FACS 11/18/2015 Primary open-angle glaucoma of right eye 7 Month Follo w-Up and Testing with Drew Miranda MD, FACS 11/18/2015 Pseudophakia in both eyes 7 Month Follow-Up and Testin g with Drew Miranda MD, FACS 11/18/2015 Primary open-angle glaucoma of right eye VISUAL FIELD 24-2 with Drew Hugo MD, FACS 06/23/2015 Dry eye syndrome of both eyes 4 Month Follow-Up After Cataract Surgery with Drew Miranda MD, FACS 03/25/2015 Posterior capsule opacification of eccentric capsule i n the right eye 4 Month Follow-Up After Cataract Surgery with Drew Miranda MD, FACS 03/25/2015 Primary open-angle glaucoma in both eyes 4 Month Follo w-Up After Cataract Surgery with Drew Miranda MD, FACS 03/25/2015 Pseudophakia in both eyes 4 Month Follow-Up After Jerardo ract Surgery with Drew Miranda MD, FACS 03/25/2015 Cortical senile cataract of the left eye IOP CHECK wi th Drew Miranda MD, FACS 03/18/2014 Dry eye syndrome of both eyes IOP CHECK with Drew Hugo MD, FACS 03/18/2014 Mild stage glaucoma IOP CHECK with Drew Miranda MD, F ACS 03/18/2014 Nuclear senile cataract of both eyes IOP CHECK with Liat Miranda MD, FACS 03/18/2014 Posterior subcapsular polar senile cataract of the ri ght eye IOP CHECK with Drew Miranda MD, FACS 03/18/2014 Primary open-angle glaucoma in the right eye IOP CHECK with Drew Miranda MD, FACS 03/18/2014 Cortical senile cataract left eye 2 Year Follow-Up wi Drew Miranda MD, FACS 02/18/2014 Dermatochalasis of both eyes upper and lower lids 2 Y ear Follow-Up with Drew Miranda MD, FACS 02/18/2014 Drusen of both eyes 2 Year Follow-Up with Drew wiley MD, FACS 02/18/2014 Dry eye syndrome of both eyes 2 Year Follow-Up with Cristian Miranda MD, FACS 02/18/2014 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 2 Year Follow-Up with Drew Miranda MD, FACS 02/18/2014 Hypertensive retinopathy of both eyes 2 Year Follow-Up with Drew Miranda MD, FACS 02/18/2014 Mild stage glaucoma 2 Year Follow-Up with Drew wiley MD, FACS 02/18/2014 Nuclear senile cataract both eyes 2 Year Follow-Up [facility] Drew Miranda MD, FACS 02/18/2014 Posterior subcapsular polar senile cataract right eye 2 Year Follow-Up with Drew Miranda MD, FACS 02/18/2014 Primary open-angle glaucoma in the right eye 2 Year Fo llow-Up with Drew Miranda MD, FACS 02/18/2014 Ptosis of eyelid both upper eyelids 2 Year Follow-Up with Drew Miranda MD, FACS 02/18/2014 Vitreous floaters in both eyes 2 Year Follow-Up with Liat Miranda MD, FACS 02/18/2014 Instructions Instructions not supported for this document typeNo Instructions Recorded Medical Equipment - Implanted Devices Includes: Current and historical DevicesNo Medical Equipment Recorded Medications Includes: Current and historical Medications Current Medications (continue as prescribed) Lumigan 0.01% Ophthalmic Solution 12/28/2020 Provid er: Drew Miranda MD, FACS Diagnosis: Primary open-angle g laucoma, right eye, moderate stage One drop in the right eye at night Timolol Maleate 0.5% Ophthalmic Gel Forming Solution 021 Provider: Drew Miranda MD, FACS Diagnosis: Primary open-angle g laucoma, right eye, moderate stage one drop in the morning in the right eye Dexamethasone 4 MG Oral Tablet 02/25/2020 Provider: Diagnosis: Once Weekly Escitalopram Oxalate 10MG Oral Tablet 05/24/2017 Pr ovider: Diagnosis: Eliquis 5MG Oral Tablet 05/24/2017 Provider: Diagnosis: Pravastatin Sodium 40MG Oral Tablet 05/24/2017 Prov ider: Diagnosis: Enalapril Maleate 10MG Oral Tablet 05/24/2017 Provi emily: Diagnosis: Finasteride 5 MG OR TABS 02/18/2014 Provider: Diagnosis: Past Medications on file TobraDex 0.3-0.1% Ophthalmic Suspension 10/16/2019 - 020 Provider: Drew Miranda MD, FACS Diagnosis: Other chronic allerg ic conjunctivitis One drop four times a day in both eyes f or 1 week, then twice a day to both eyes for 2 weeks, then stop Lumigan 0.01% Ophthalmic Solution 10/06/2019 - 12/28/2020 Pr ovider: Drew Miranda MD FACS Diagnosis: Primary open-angle g laucoma, right eye, moderate stage One drop in each eye at night time. Lotemax 0.5% Ophthalmic Gel 09/24/2019 - 10/16/2019 Provider : Drew Miranda MD, FACS Diagnosis: Other chronic allerg ic conjunctivitis one drop to both eyes twice a day for tw o weeks, one drop once a day both eyes for two weeks, then stop Lotemax 0.5% Ophthalmic Gel 09/23/2019 - 09/24/2019 Provider : Drew Miranda MD, FACS Diagnosis: Other chronic allerg ic conjunctivitis one drop to both eyes twice a day for tw o weeks, one drop twice a day both eyes for two weeks, then stop Lotemax 0.5% Ophthalmic Suspension 02/04/2019 - 03/06/2019 P rovider: Doug. Larsen-Hugo MD, FACS Diagnosis: Other secondary jerardo ract, right eye One drop four times a day in the right eye for 1 week Lumigan 0.01% Ophthalmic Solution 09/18/2018 - 02/25/2020 Pr ovider: Drew Miranda MD FACS Diagnosis: Primary open-angle g laucoma, right eye, moderate stage One drop in each eye in the morning to the right eye only Lumigan 0.01% Ophthalmic Solution 09/16/2018 - 09/18/2018 Pr ovider: Drew Miranda MD FACS Diagnosis: Primary open-angle g laucoma, right eye, moderate stage One drop in each eye in the morning to the right eye only Lumigan 0.01% Ophthalmic Solution 06/11/2017 - 09/16/2018 Pr ovider: Drew Miranda MD FACS Diagnosis: Primary open-angle g laucoma, right eye, moderate stage One drop in each eye in the morning to the right eye only Lumigan 0.01% Ophthalmic Solution 05/24/2016 - 06/11/2017 Pr ovider: Drew Miranda MD FACS Diagnosis: Primary open-angle g laucoma, right eye, moderate stage One drop in each eye in the morning to the right eye only Lumigan 0.01% Ophthalmic Solution 04/06/2016 - 05/24/2016 Pr ovider: Diagnosis: to the right eye only Lumigan 0.01 % Solution 03/09/2015 - 03/03/2016 Provider: Drew Miranda MD FACS Diagnosis: Primary open-angle g laucoma, mild stage One drop in the right eye at bed time. Lumigan 0.01% OP SOLN 02/18/2014 - 03/09/2015 Provider: Drew Miranda MD FACS Diagnosis: Prim Open Angle Glau coma hydroCHLOROthiazide 25 MG TABS 02/18/2014 - 05/24/2017 Provi emily: Diagnosis: 1/2 a pill every other day Pravastatin Sodium 20 MG OR TABS 02/18/2014 - 05/24/2017 Pro vider: Diagnosis: Enalapril Maleate 20 MG OR TABS 02/18/2014 - 05/24/2017 Prov ider: Diagnosis: Medications Administered Includes: Administered Medications in patient's chartNo Administered Medications Recorded Vital Signs Includes: Vital Signs from 02/04/2020 through 02/03/2021No Vital Signs Recorded For Specified Dates Results Includes: Results from 02/04/2020 through 02/03/2021No Results Recorded For Specified Dates History of Present Illness History of Present Illness not supported for this document typeNo History of Present Illness Recorded Social History Description Last Updated Tobacco non-user 02/25/2020 Never smoked 01/21/2019 Not a current smoker 09/18/2018 No consumption of alcohol 09/18/2018 No tobacco use 09/18/2018 Not using drugs 09/18/2018 Smoking status : Never smoker 09/18/2018 Not using alcohol 03/25/2015 Procedures and Surgical History Includes: Procedures from 02/04/2020 through 02/03/2021 Procedures Code Diagnosis Performing Provider Service Location Service Date Intermediate Eye Exam Established Patient 12527 Primary open-angle glaucoma, right eye, moderate stage, Primary open-angle glaucoma, left eye, mild stage Drew Miranda MD, CHRIS Miranda MD [facility] 05/18/2020 Intermediate Eye Exam Established Patient 39384 Primary open-angle glaucoma, right eye, moderate stage, Primary open-angle glaucoma, left eye, mild stage Drew Miranda MD, CHRIS Miranda MD [facility] 04/19/2020 Intermediate Eye Exam Established Patient 32099 Conjunctival hemorrhage, left eye Drew Miranda MD, CHRIS Miranda MD [facility] 2019 Surgical History Last Updated History of discission of secondary membr anous cataract of right eye by laser by Dr. Miranda 02/04/19 02/25/2020 Surgical / procedural history : Knee Gamaliel erasmo - 1989, Ankle Surgery, Melanoma removed from the right arm in 2010, Chemo 02/25/2020 History of cataract extraction - PCIOLOU by Dr. Gary robertson 201401/21/2019 Medical History Includes: Medical History in patient's chart Description Last Updated No recent change in medical history 09/18/2018 Reported medical history : History of Melanoma, Multip le Myaloma 05/1909/18/2018 Currently wearing eyeglasses 03/18/2014 History of arthritis 03/18/2014 History of hyperlipidemia 03/18/2014 History of hypertension 03/18/2014 Nasal endoscopy with dacryocystorhinostomy of the lef t eye 03/18/2014 Family History Includes: Family History in patient's chart Description Last Updated Son's history of family history of cancer 09/18/2018 Son's history of hypertension 09/18/2018 Son's history of thyroid disorder 09/18/2018 Fraternal history of cataract 03/25/2015 Fraternal history of diabetes mellitus 03/25/2015 Fraternal history of family history of cancer 03/25/19 16 Fraternal history of hypertension 03/25/2015 Paternal history of arthritis 03/25/2015 Paternal history of heart disease 03/25/2015 Paternal history of hypertension 03/25/2015 Paternal history of stroke/cerebrovascular accident Family history of stroke/cerebrovascular accident - S ibling 05/14/2014 Family history of cataract - Sibling 03/18/2014 Family history of hypertension - Sibling 03/18/2014 Review of Systems Review of Systems not supported for this document typeNo Review of Systems Recorded Mental Status Mental Status not supported for this document typeNo Mental Status Recorded Functional Status Functional Status not supported for this document typeNo Functional Status Recorded Physical Exam Physical Exam not supported for this document typeNo Physical Exam Recorded Immunizations Includes: Immunizations in patient's chartNo Immunizations Recorded Allergies Includes: Active, inactive, and resolved AllergiesNo Known Allergies Encounters Includes: Encounters from 02/04/2020 through 02/03/2021 Encounter Provider Location Date Check-In Time Check-Out Time D iagnosis Rx Refills/Changes Drew Miranda MD, FACS 12/28/2020 09/30/2020 3:00PM 09/30/2020 11:59PM IOP CHECK Drew Miranda MD, FACS Drew Miranda MD [facility] 09/30/2020 9:38AM 10:32AM Glaucoma Open-angle Primary Right Eye, Glaucoma Open-angle Primary Left Eye IOP CHECK Drew Miranda MD, FACS Drew Miranda MD [facility] 05/18/2020 12:56PM 2:01PM Glaucoma Open-angle Primary Right Eye, Glaucoma Open-angle Primary Left Eye IOP CHECK Drew Miranda MD, CHRIS Miranda MD [facility] 04/19/2020 12:24PM 12:47PM Glaucoma Open-angle Primary Right Eye, Glaucoma Open-angle Primary [facility] Miranda MD, FACS Drew Miranda MD [facility] 02/25/2020 1:44PM 2:39PM Subconjunctival Hemo rrhage, Glaucoma Open-angle Primary Right Eye, Glaucoma Open-angle Primary Left Eye Insurance Includes: Active Insurance Policies Plan Name Member ID Group # Subscriber Relationship Effective Da aníbal 1 - Medicare Part B [facility] ([facility]) [id number] Silver Serrato Self 04/05/2004 - Unknown 2 - [employer] /PRIOR AUTHS NEEDED [id number] Cachorro carvajalcarly Jolene Ama Self Advance Directives Includes: Current Advance DirectivesNo Advance Directives Recorded Health Concerns Includes: Active Health ConcernsNo Active Health Concerns Recorded Goals Includes: Active GoalsNo Active Goals Recorded Interventions Includes: Interventions for active GoalsNo Interventions Recorded Evaluations & Outcomes Includes: Evaluations & Outcomes for active GoalsNo Outcomes Recorded
--- OUTSIDE RECORDS SUMMARY | 2021-02-14 10:50 | CCD ---
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 Role Phone Ruben BABIN, CHRIS, Drew Vargas Unavailable [phone] Jose M PINA MD, Herbert Espitia PP [phone] Reason for Referral No Reason for Referral [...] 01/21/2019 Pseudophakia TRIAGE NON URGENT with Drew villegsa MD, FACS 01/21/2019 Acute atopic conjunctivitis TRIAGE [...] senile cataract both eyes 2 Year Follow-Up [facility] Drew Miranda MD, FACS 02/18/2014 Posterior subcapsular [...] Recorded Vital Signs Includes: Vital Signs from 01/17/2020 through 01/16/2021No Vital Signs Recorded For Specified Dates Results Includes: Results from 01/17/2020 through 01/16/2021No Results Recorded For Specified Dates History of Present Illness History of Present Illness not supported for this document typeNo History of Present Illness Recorded Social History Description Last Updated Tobacco non-user 02/25/2020 No consumption of alcohol 02/04/2019 No tobacco use 02/04/2019 Not using drugs 02/04/2019 Smoking status : Never smoker 02/04/2019 Never smoked 01/21/2019 Not using alcohol 03/25/2015 Procedures and Surgical History Includes: Procedures from 01/17/2020 through 01/16/2021 Procedures Code Diagnosis Performing Provider Service Location Service Date Intermediate Eye Exam Established Patient 52958 Primary open-angle glaucoma, right eye, moderate stage, Primary open-angle glaucoma, left eye, mild stage Drew Miranda MD, CHRIS Miranda MD [facility] 05/18/2020 Intermediate Eye Exam Established Patient 19413 Primary open-angle glaucoma, right eye, moderate stage, Primary open-angle glaucoma, left eye, mild stage Drew Miranda MD, CHRIS Miranda MD [facility] 04/19/2020 Intermediate Eye Exam Established Patient 39609 Conjunctival hemorrhage, left eye Drew Miranda MD, CHRIS Miranda MD [facility] 2019 Surgical History Last Updated History [...] History in patient's chart Description Last Updated Reported medical history : History of Melanoma, Multip le Myeloma 05/1901/21/2019 No recent change in medical history 01/21/2019 Currently wearing eyeglasses 03/18/2014 History of arthritis 03/18/2014 History of hyperlipidemia 03/18/2014 History of hypertension 03/18/2014 Nasal endoscopy with dacryocystorhinostomy of the lef t eye 03/18/2014 Family History Includes: Family History in patient's chart Description Last Updated Son's history of family history of cancer 01/21/2019 Son's history of hypertension 01/21/2019 Son's history of thyroid disorder 01/21/2019 Fraternal history of cataract 03/25/2015 Fraternal history [...] AllergiesNo Known Allergies Encounters Includes: Encounters from 01/17/2020 through 01/16/2021 Encounter Provider Location Date Check-In Time Check-Out Time D iagnosis Rx Refills/Changes Drew Miranda MD, FACS 12/28/2020 09/30/2020 3:00PM 09/30/2020 11:59PM IOP CHECK Drew Miranda MD, FACS Drew Miranda MD [facility] 09/30/2020 9:38AM 10:32AM Glaucoma Open-angle Primary Right Eye, Glaucoma Open-angle Primary Left Eye IOP CHECK Drew Miranda MD, FACS Drew Miranda MD [facility] 05/18/2020 12:56PM 2:01PM Glaucoma Open-angle Primary Right Eye, Glaucoma Open-angle Primary Left Eye IOP CHECK Drew Miranda MD, CHRIS Miranda MD [facility] 04/19/2020 12:24PM 12:47PM Glaucoma Open-angle Primary Right Eye, Glaucoma Open-angle Primary Left [facility] MD, FACS Drew Miranda MD [facility] 02/25/2020 1:44PM 2:39PM Subconjunctival Hemo rrhage, Glaucoma Open-angle Primary Right Eye, Glaucoma Open-angle Primary Left Eye Insurance Includes: Active Insurance Policies Plan Name Member ID Group # Subscriber Relationship Effective Da aníbal 1 - Medicare Part B [facility] ([facility]) [id number] Silver Serrato Self 04/05/2004 - Unknown 2 - [employer] 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
--- OUTSIDE RECORDS SUMMARY | 2021-02-14 10:50 | CCD ---
Author Author Drew Miranda MD [facility] Organization Drew Miranda MD [facility] Address [address] [place] [id number] Phone Care Team Providers Care Manager Social Work Name Role Phone Ruben BABIN, CHRIS, Drew Vargas Unavailable [phone] Jose M PINA MD, Herbert Espitia PP [phone] Reason for Referral No Reason for Referral [...] right eye 7 Month Fol low-Up with Drwe Miranda MD, FACS 05/24/2017 [place] of both [...] senile cataract both eyes 2 Year Follow-Up [facility] Drew Miranda MD, FACS 02/18/2014 Posterior subcapsular [...] Recorded Vital Signs Includes: Vital Signs from 01/29/2020 through 01/28/2021No Vital Signs Recorded For Specified Dates Results Includes: Results from 01/29/2020 through 01/28/2021No Results Recorded For Specified Dates History of Present Illness History of Present Illness not supported for this document typeNo History of Present Illness Recorded Social History Description Last Updated Tobacco non-user 02/25/2020 Never smoked 01/21/2019 No consumption of alcohol 10/22/2018 No tobacco use 10/22/2018 Not a current smoker 10/22/2018 Not using drugs 10/22/2018 Smoking status : Never smoker 10/22/2018 Not using alcohol 03/25/2015 Procedures and Surgical History Includes: Procedures from 01/29/2020 through 01/28/2021 Procedures Code Diagnosis Performing Provider Service Location Service Date Intermediate Eye Exam Established Patient 27700 Primary open-angle glaucoma, right eye, moderate stage, Primary open-angle glaucoma, left eye, mild stage Drew Miranda MD, CHRIS Miranda MD [facility] 05/18/2020 Intermediate Eye Exam Established Patient 71055 Primary open-angle glaucoma, right eye, moderate stage, Primary open-angle glaucoma, left eye, mild stage Drew Miranda MD, CHRIS Miranda MD [facility] 04/19/2020 Intermediate Eye Exam Established Patient 43240 Conjunctival hemorrhage, left eye Drew Miranda MD, CHRIS Miranda MD [facility] 2019 Surgical History Last Updated History [...] Updated No recent change in medical history 10/22/2018 Reported medical history : History of Melanoma, Multip le Myaloma 05/1910/22/2018 Currently wearing eyeglasses 03/18/2014 History of arthritis 03/18/2014 History of hyperlipidemia 03/18/2014 History of hypertension 03/18/2014 Nasal endoscopy with dacryocystorhinostomy of the lef t eye 03/18/2014 Family History Includes: Family History in patient's chart Description Last Updated Son's history of family history of cancer 10/22/2018 Son's history of hypertension 10/22/2018 Son's history of thyroid disorder 10/22/2018 Fraternal history of cataract 03/25/2015 Fraternal history [...] AllergiesNo Known Allergies Encounters Includes: Encounters from 01/29/2020 through 01/28/2021 Encounter Provider Location Date Check-In Time Check-Out Time D iagnosis Rx Refills/Changes Drew Miranda MD, FACS 12/28/2020 09/30/2020 3:00PM 09/30/2020 11:59PM IOP CHECK Drew Miranda MD, FACS Drew Miranda MD [facility] 09/30/2020 9:38AM 10:32AM Glaucoma Open-angle Primary Right Eye, Glaucoma Open-angle Primary Left Eye IOP CHECK Drew Miranda MD, FACS Drew Miranda MD [facility] 05/18/2020 12:56PM 2:01PM Glaucoma Open-angle Primary Right Eye, Glaucoma Open-angle Primary Left Eye IOP CHECK Drew Miranda MD, CHRIS Miranda MD [facility] 04/19/2020 12:24PM 12:47PM Glaucoma Open-angle Primary Right Eye, Glaucoma Open-angle Primary [facility] Miranda MD, FACS Drew Miranda MD [facility] 02/25/2020 1:44PM 2:39PM Subconjunctival Hemo rrhage, Glaucoma Open-angle Primary Right Eye, Glaucoma Open-angle Primary Left Eye Insurance Includes: Active Insurance Policies Plan Name Member ID Group # Subscriber Relationship Effective Da aníbal 1 - Medicare Part B [facility] ([facility]) [id number] Silver Serrato Self 04/05/2004 - Unknown 2 - [employer] Care Management /PRIOR AUTHS NEEDED [id number] Cachorro carvajalcarly Jolene Ama Self Advance Directives Includes: Current Advance DirectivesNo Advance Directives Recorded Health Concerns Includes: Active Health ConcernsNo Active Health Concerns Recorded Goals Includes: Active GoalsNo Active Goals Recorded Interventions Includes: Interventions for active GoalsNo Interventions Recorded Evaluations & Outcomes Includes: Evaluations & Outcomes for active GoalsNo Outcomes Recorded
--- OUTSIDE RECORDS SUMMARY | 2021-02-14 10:50 | CCD | Continuity of Care Document ---
Author Author Silver PAINTING MD Organization Unknown Address [address] [facility] [place], [address] [place] [address] Phone [phone] Care Team Providers Care Senior Director Of Strategy Name Role Phone Herbert Salguero MD @ [facility] Int AUTM AUT[facility] Unavailable Problems Active Problems [...] CPT Code Status Date Vaccine Lot # [id number] Given 12/01/2015 Influenza Virus Split 3 Yrs And Above For Intramuscular Use Vital Signs Date Vital Result Comment 02/10/2021 10:28am BP Systolic 140 mmHg BP Diastolic 90 mmHg Heart Rate 58 /min O2 % BldC Oximetry 98 % Height 71 inches 5'11" Weight 201.00 lb BMI (Body Mass Index) 28.0 kg/m2 [place] Body Weight 172 lb Weight 91.174 kg BSA (Body Surface Area) 2.11 m2 01/05/2020 8:31am BP Systolic 108 mmHg BP Diastolic 68 mmHg Heart Rate 70 /min O2 % BldC Oximetry 98 % Room Air Height 71 inches 5'11" Weight 208.00 lb BMI (Body Mass Index) 29.0 kg/m2 [place] Body Weight 172 lb Weight 94.349 kg BSA (Body Surface Area) 2.14 m2 Results Description No Information Available Procedures Date Code Description Status 02/10/2021 48618 Office/Outpatient New Low MDM 30 -44 Minutes Completed 02/10/2021 61820 Myringotomy W/ Aspiration/Eustac hian Tube Inflate Completed 02/10/2021 76138 Endoscopy Nasal Diagnostic Compl eted Medical Devices Description No Information Available Encounters Type Date Location Provider Dx Diagnosis Office Visit 02/10/2021 10:15a [facility] Duarte Delgado R42 Dizziness and [...] 1:15 pm - Drew Painting MD at [facility] Functional Status Description No Information Available Mental Status Description No Information Available Referrals Refer to Dr Reason for Referral Status Appt Date Drew Painting M.D. Created [address] [address] [phone]
--- OUTSIDE RECORDS SUMMARY | 2021-02-14 10:50 | CCD | Continuity of Care Document ---
Author Author [facility] Organization Unknown Address [address] [place] [address] Phone [phone] Care Team Providers Care Starting Sheet Tank Operator Name Role Phone Herbert Salguero MD [facility] [phone] Deepika Au MD [facility] [phone] Problems Active Problems Provider Date Degenerative joint disease of ankle AND/OR foot Onset: 12/24/1998 Essential hypertension Mert Farnsworth Onset: Pure hypercholesterolemia Mert Farnsworth Onset: 10/25/2020 Social History Type Date Description Comments Sex Unknown Allergies, Adverse Reactions, Alerts Description No Known Drug Allergies Medications Active Medications SIG Qnty Indications Ordering Provide r Date Eliquis 5mg Tablets 1 tab by mouth twice a day Unknown Finasteride 5mg Tablets one by mouth daily Unknown Escitalopram Oxalate 10mg Tablets 1 by mouth daily Unknown Pravastatin Sodium 40mg Tablets 1 by mouth daily Unknown Enalapril Maleate 20mg Tablets 1 by mouth daily Unknown Lumigan 0.01% Solution Unknown Dexamethasone 1mg Tablets one tab by mouth at 11pm Unknown Singulair 10mg Tablets 1 by mouth every day Unknown Immunizations Description No Information Available Vital Signs Date Vital Result Comment 10/25/2020 1:25pm Body Temperature 97.1 F Height 70 inches 5'10" Weight 203.38 lb BMI (Body Mass Index) 29.2 kg/m2 Results Description No Information Available Procedures Date Code Description Status 11/09/2020 58772 Office/Outpatient Established Lo w MDM 20-29 Min Completed 11/09/202096833 Inject/Drain Joint/Bursa Major C ompleted 10/25/2020 93156 Office/Outpatient New Low MDM 30 -44 Minutes Completed Medical Devices Description No Information Available Encounters Type Date Location Provider Dx Diagnosis Office Visit 11/09/2020 5:00p Mert Sweet M75.32 Calcific tendinitis of left shoulder M19.012 Primary osteoarthritis, left shoulder Office Visit 10/25/2020 1:30p Radha Finley PDavideADavide M75.32 Calcific tendinitis of left shoulder M19.012 Primary osteoarthritis, left shoulder Assessments Date Code Description Provider 11/09/2020 M75.32 Calcific tendinitis of left shou fransisca Marlo Finley, P.A. 11/09/2020 M19.012 Primary osteoarthritis, left caitlin loganemily Marlo Finley, P.A. 10/25/2020 M75.32 Calcific tendinitis of left shou fransisca Marlo Finley, P.A. 10/25/2020 M19.012 Primary osteoarthritis, left caitlin donna Marlo Finley, P.A. Plan of Treatment 11/09/2020 - Marlo Finley, P.Silvano.* M75.32 Calcific tendinitis of left shoulder * M19.012 Primary osteoarthritis, left shoulder* Follow up:* PRN Functional Status Description No Information Available Mental Status Description No Information Available Referrals Description No Information Available
--- OUTSIDE RECORDS SUMMARY | 2021-02-14 10:51 | CCD ---
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 Name Role Phone MCELHERAN, MARITO PA Unavailable Unavailable MCELHERAN, MARITO PA Unavailable Unavailable MCELHERAN, MARITO PA Unavailable Unavailable MCELHERAN, MARITO PA Unavailable Unavailable MCELHERAN, MARITO PA Unavailable Unavailable MCELHERAN, MARITO PA Unavailable Unavailable MCELHERAN, MARITO PA Unavailable Unavailable MCELHERAN, MARITO PA Unavailable Unavailable MCELHERAN, MARITO PA Unavailable Unavailable MCELHERAN, MARITO PA Unavailable Unavailable MCELHERAN, MARITO PA Unavailable Unavailable MCELHERAN, MARITO PA Unavailable Unavailable MCELHERAN, MARITO PA Unavailable Unavailable MCELHERAN, MARITO PA Unavailable Unavailable MCELHERAN, MARITO PA Unavailable Unavailable MCELHERAN, MARITO PA Unavailable Unavailable MCELHERAN, MARITO PA Unavailable Unavailable MCELHERAN, MARITO PA Unavailable Unavailable MCELHERAN, MARITO PA Unavailable Unavailable MCELHERAN, MARITO PA Unavailable Unavailable MCELHERAN, MARITO PA Unavailable Unavailable MCELHERAN, MARITO PA Unavailable Unavailable MCELHERAN, MARITO PA Unavailable Unavailable MCELHERAN, MARITO PA Unavailable Unavailable MCELHERAN, MARITO PA Unavailable Unavailable MCELHERAN, MARITO PA Unavailable Unavailable MCELHERAN, MARITO PA Unavailable Unavailable MCELHERAN, MARITO PA Unavailable Unavailable MCELHERAN, MARITO PA Unavailable Unavailable Silvano Garcia MD, FACS Unavailable Unavailable Silvano Garcia MD, FACS Unavailable Unavailable Silvano Garcia MD, FACS Unavailable Unavailable Silvano Garcia MD, FACS Unavailable Unavailable Silvano Garcia MD, FACS Unavailable Unavailable Silvano Garcia MD, FACS Unavailable Unavailable Larsen Hugo, Silvano Russell MD, FACS Unavailable Unavailable Larsen Hugo, Silvano Russell MD, FACS Unavailable Unavailable Larsen Hugo, Silvano Russell MD, FACS Unavailable Unavailable Larsen Hugo, Silvano Russell MD, FACS Unavailable Unavailable Larsen Hugo, Silvano Russell MD, FACS Unavailable Unavailable Larsen Hugo, Silvano Russell MD, FACS Unavailable Unavailable Larsen Hugo, Silvano Russell MD, FACS Unavailable Unavailable Larsen Hugo, Silvano Russell MD, FACS Unavailable Unavailable Larsen Hugo, Silvano Russell MD, FACS Unavailable Unavailable Larsen Hugo, Silvano Russell MD, FACS Unavailable Unavailable Larsen Hugo, Silvano Russell MD, FACS Unavailable Unavailable Larsen Hugo, Silvano Russell MD, FACS Unavailable Unavailable Larsen Hugo, Silvano Russell MD, FACS Unavailable Unavailable Larsen Hugo, Silvano Russell MD, FACS Unavailable Unavailable Larsen Hugo, Silvano Russell MD, FACS Unavailable Unavailable Larsen Hugo, Silvano Russell MD, FACS Unavailable Unavailable Larsen Hugo, Silvano Russell MD, FACS Unavailable Unavailable Larsen Hugo, Silvano Russell MD, FACS Unavailable Unavailable Larsen Hugo, Silvano Russell MD, FACS Unavailable Unavailable Larsen Hugo, Silvano Russell MD, FACS Unavailable Unavailable Larsen Hugo, Silvano Russell MD, FACS Unavailable Unavailable Larsen Hugo, Silvano Russell MD, FACS Unavailable Unavailable Larsen Hugo, Silvano Russell MD, FACS Unavailable Unavailable Larsen Hugo, Silvano Russell MD, FACS Unavailable Unavailable Larsen Hugo, Silvano Russell MD, FACS Unavailable Unavailable Larsen Hugo, Silvano Russell MD, FACS Unavailable Unavailable Larsen Hugo, Silvano Russell MD, FACS Unavailable Unavailable Larsen Hugo, Silvano Russell MD, FACS Unavailable Unavailable Larsen Hugo, Silvano Russell MD, FACS Unavailable Unavailable Larsen Hugo, Silvano Russell MD, FACS Unavailable Unavailable Larsen Hugo, Silvano Russell MD, FACS Unavailable Unavailable Larsen Hugo, Silvano Russell MD, FACS Unavailable Unavailable Larsen Hugo, Silvano Russell MD, FACS Unavailable Unavailable Mert, Mindy Russell PH.D., M.D. Unavailable Unavailable Mert, Mindy Russell PH.D., M.D. Unavailable Unavailable Mert, Mindy Russell PH.D., M.D. Unavailable Unavailable Mert, Mindy Russell PH.D., M.D. Unavailable Unavailable Mert, Mindy Russell PH.D., M.D. Unavailable Unavailable Mert, Mindy Russell PH.D., M.D. Unavailable Unavailable Mert, Mindy Russell PH.D., M.D. Unavailable Unavailable Mert, Mindy Russell PH.D., M.D. Unavailable Unavailable Mert, Mindy Russell PH.D., M.D. Unavailable Unavailable Mert, Mindy Russell PH.D., M.D. Unavailable Unavailable Mert, Mindy Russell PH.D., M.D. Unavailable Unavailable Mert, C Drew PH.D., M.D. Unavailable Unavailable Mert, C Drew PH.D., M.D. Unavailable Unavailable Mert, C Drew PH.D., M.D. Unavailable Unavailable Mert, C Drew PH.D., M.D. Unavailable Unavailable Mert, C Drew PH.D., M.D. Unavailable Unavailable Mert, C Drew PH.D., M.D. Unavailable Unavailable Mert, C Drew PH.D., M.D. Unavailable Unavailable Mert, C Drew PH.D., M.D. Unavailable Unavailable Mert, C Drew PH.D., M.D. Unavailable Unavailable Mert, C Drew PH.D., M.D. Unavailable Unavailable Mert, C Drew PH.D., M.D. Unavailable Unavailable Mert, C Rdew PH.D., M.D. Unavailable Unavailable Mert, C Drew PH.D., M.D. Unavailable Unavailable Mert, C Drew PH.D., M.D. Unavailable Unavailable Mert, C Drew PH.D., M.D. Unavailable Unavailable Mert, C Drew PH.D., M.D. Unavailable Unavailable Mert, C Drew PH.D., M.D. Unavailable Unavailable Mert, C Drew PH.D., M.D. Unavailable Unavailable Mert, C Drew PH.D., M.D. Unavailable Unavailable Mert, C Drew PH.D., M.D. Unavailable Unavailable Mert, C Drew PH.D., M.D. Unavailable Unavailable Mert, C Drew PH.D., M.D. Unavailable Unavailable Mert, C Drew PH.D., M.D. Unavailable Unavailable Mert, C Drew PH.D., M.D. Unavailable Unavailable Mert, C Drew PH.D., M.D. Unavailable Unavailable Mert, C Drew PH.D., M.D. Unavailable Unavailable Mert, C Drew PH.D., M.D. Unavailable Unavailable Mert, C Drew PH.D., M.D. Unavailable Unavailable Mert, C Drew PH.D., M.D. Unavailable Unavailable Mert, C Drew PH.D., M.D. Unavailable Unavailable Mert, C Drew PH.D., M.D. Unavailable Unavailable Mert, C Drew PH.D., M.D. Unavailable Unavailable Mert, C Drew PH.D., M.D. Unavailable Unavailable Mert, C Drew PH.D., M.D. Unavailable Unavailable Mert, C Drew PH.D., M.D. Unavailable Unavailable Mert, C Drew PH.D., M.D. Unavailable Unavailable Mert, C Drew PH.D., M.D. Unavailable Unavailable Mert, C Drew PH.D., M.D. Unavailable Unavailable Mert, C Drew PH.D., M.D. Unavailable Unavailable Mert, C Drew PH.D., M.D. Unavailable Unavailable Mert, C Drew PH.D., M.D. Unavailable Unavailable Mert, C Drew PH.D., M.D. Unavailable Unavailable Mert, C Drew PH.D., M.D. Unavailable Unavailable Mert, C Drew PH.D., M.D. Unavailable Unavailable Mert, C Drew PH.D., M.D. Unavailable Unavailable Mert, C Drew PH.D., M.D. Unavailable Unavailable Mert, C Drew PH.D., M.D. Unavailable Unavailable Mert, C Drew PH.D., M.D. Unavailable Unavailable Mert, C Drew PH.D., M.D. Unavailable Unavailable Mert, C Drew PH.D., M.D. Unavailable Unavailable Mert, C Drew PH.D., M.D. Unavailable Unavailable Mert, C Drew PH.D., M.D. Unavailable Unavailable Mert, C Drew PH.D., M.D. Unavailable Unavailable Mert, C Drew PH.D., M.D. Unavailable Unavailable Mert, C Drew PH.D., M.D. Unavailable Unavailable Mert, C Drew PH.D., M.D. Unavailable Unavailable Mert, C Drew PH.D., M.D. Unavailable Unavailable Mert, C Drew PH.D., M.D. Unavailable Unavailable Mert, C Drew PH.D., M.D. Unavailable Unavailable Mert, C Drew PH.D., M.D. Unavailable Unavailable Mert, C Drew PH.D., M.D. Unavailable Unavailable Mert, C Drew PH.D., M.D. Unavailable Unavailable Mert, C Drew PH.D., M.D. Unavailable Unavailable Mert, C Drew PH.D., M.D. Unavailable Unavailable Mert, C Drew PH.D., M.D. Unavailable Unavailable Mert, C Drew PH.D., M.D. Unavailable Unavailable Mert, C Drew PH.D., M.D. Unavailable Unavailable Mert, C Drew PH.D., M.Liat. Unavailable Unavailable Mindy Painting PH.D., M.Liat. Unavailable Unavailable Mindy Painting PH.Liat., M.Liat. Unavailable Unavailable Mindy Painting PH.D., M.Liat. Unavailable Unavailable Mindy Painting PH.D., M.Liat. Unavailable Unavailable Re-disclosure Warning The records that you are about to access may contain information from federally-assisted alcohol or drug abuse programs. If such information is present, then the following federally mandated warning applies: This information has been disclosed to you from records protected by federal confidentiality rules (42 CFR part 2). The federal rules prohibit you from making any further disclosure of this information unless further disclosure is expressly permitted by the written consent of the person to whom it pertains or as otherwise permitted by 42 CFR part 2. A general authorization for the release of medical or other information is NOT sufficient for this purpose. The Federal rules restrict any use of the information to criminally investigate or prosecute any alcohol or drug abuse patient.The records that you are about to access may contain highly sensitive health information, the redisclosure of which is protected by Article 27-F of the [facility] Public Health law. If you continue you may have access to information: Regarding HIV / AIDS; Provided by facilities licensed or operated by the [facility] Office of Mental Health; or Provided by the [facility] Office for People With Developmental Disabilities. If such information is present, then the following [facility] mandated warning applies: This information has been disclosed to you from confidential records which are protected by state law. State law prohibits you from making any further disclosure of this information without the specific written consent of the person to whom it pertains, or as otherwise permitted by law. Any unauthorized further disclosure in violation of state law may result in a fine or alf sentence or both. A general authorization for the release of medical or other information is NOT sufficient authorization for further disc losure. Allergies and Adverse Reactions Type Description Substance Reaction Status Data Source(s ) Allergy to substance No Known Allergies No known allergies (situation ) [facility] (Drew Hugo MD [facility]) Allergy to substance No Known Allergies No known allergies (situation ) [facility] (Drew Hugo MD [facility]) Allergy to substance No Known Allergies No known allergies (situation ) [facility] (Drew Hugo MD [facility]) Allergy to substance No Known Allergies No known allergies (situation ) [facility] (Drew Hugo MD [facility]) Allergy to substance No Known Allergies No known allergies (situation ) [facility] (Drew Hugo MD [facility]) Allergy to substance No Known Allergies No known allergies (situation ) [facility] (Drew Hugo MD [facility]) Allergy to substance No Known Allergies No known allergies (situation ) [facility] (Drew Hugo MD [facility]) Family History Family Member Name Family Member Gender Family Member Status Date o f Status Description Data Source(s) Unknown Male Problem [facility] ([facility] Unknown Unknown Problem [facility] ([facility], ) Unknown Male Problem [facility] ([facility]) Encounters Encounter Providers Location Date Indications Data Source(s ) Outpatient Attender: Drew Painting PH.D., M.D. Janina/[place]/Silvano terrazas/Honey 02/10/2021 09:15:00 AM EST [facility] ([facility]) OFFICE OUTPATIENT VISIT 15 MINUTES Attender: MARITO BENITEZ Physical Therapy 11/09/2020 05:00:00 PM EDT [facility] ([facility]) OFFICE OUTPATIENT NEW 30 MINUTES Attender: MARITO BENITEZ Physical Therapy 10/25/2020 01:30:00 PM EDT [facility] ([facility]) Outpatient<td ID="encounterTypeDescripti onID0">Rx Refills/Changes</td><td>Drew Miranda MD, [facility]</td><td></td><td>12/28/2020</td><td>09/30/2020 3:00PM</td><td>09/30/2020 11:59PM</td><td></td> Attender: Drew Hugo MD, FACS 09/30/2020 03:00:00 PM EDT - 09/30/2020 11:59:00 PM EDT [facility] (Drew Hugo MD [facility]) Outpatient<td ID="encounterTypeDescripti onID1">IOP CHECK</td><td>Drew Hugo MD, [facility]</td><td>Drew Miranda MD [facility]</td><td>09/30/2020</td><td>9:38AM</td><td>10:32AM</td><td><content ID="encounterDiagnosisID1-0">Glaucoma Open-angle Primary Right Eye</content>, <content ID="encounterDiagnosisID1-1">Glaucoma Open-angle Primary Left Eye</content></td> Attender: Drew Hugo MD, FACS Drew Miranda MD [facility] 09/30/2020 09:38:00 AM EDT - 09/30/2020 10:32:00 AM EDT Glaucoma Open-angle Primary Left EyeGlaucoma Open-angle Primary Left EyeGlaucoma Open-angle Primary Left EyeGlaucoma Open-angle Primary Left EyeGlaucoma Open-angle Primary Left EyeGlaucoma Open-angle Primary Right EyeGlaucoma Open-angle Primary Right EyeGlaucoma Open-angle Primary Right EyeGlaucoma Open-angle Primary Right EyeGlaucoma Open-angle Primary Right Eye [place] (Drew Hugo MD [facility]) Glaucoma Open-angle Primary Left Eye Glaucoma Open-angle Primary Left Eye Glaucoma Open-angle Primary Left Eye Glaucoma Open-angle Primary Left Eye Glaucoma Open-angle Primary Left Eye Glaucoma Open-angle Primary Right Eye Glaucoma Open-angle Primary Right Eye Glaucoma Open-angle Primary Right Eye Glaucoma Open-angle Primary Right Eye Glaucoma Open-angle Primary Right Eye <td ID="encounterTypeDescriptionID2">IOP CHECK</td><td>Drew Miranda MD, FACS</td><td>Drew Miranda MD [facility]</td><td>05/18/2020</td><td>12:56PM</td><td>2:01PM</td><td><content ID="encounterDiagnosisID2-0">Glaucoma Open-angle Primary Right Eye</content>, <content ID="encounterDiagnosisID2-1">Glaucoma Open-angle Primary Left Eye</content></td>Outpatient Attender: Drew Hugo MD, FACS Drew Hugo MD [facility] 05/18/2020 12:56:00 PM EDT - 05/18/2020 02:01:00 PM ED T Glaucoma Open-angle Primary Left EyeGlaucoma Open-angle Primary Left EyeGlaucoma Open- angle Primary Left EyeGlaucoma Open-angle Primary Left EyeGlaucoma Open-angle Primary Left EyeGlaucoma Open-angle Primary Left EyeGlaucoma Open-angle Primary Right EyeGlaucoma Open-angle Primary Right EyeGlaucoma Open-angle Primary Right EyeGlaucoma Open-angle Primary Right EyeGlaucoma Open-angle Primary Right EyeGlaucoma Open-angle Primary Right Eye [facility] (Drew Hugo MD [facility]) Glaucoma Open-angle Primary Left Eye Glaucoma Open-angle Primary Left Eye Glaucoma Open-angle Primary Left Eye Glaucoma Open-angle Primary Left Eye Glaucoma Open-angle Primary Left Eye Glaucoma Open-angle Primary Left Eye Glaucoma Open-angle Primary Right Eye Glaucoma Open-angle Primary Right Eye Glaucoma Open-angle Primary Right Eye Glaucoma Open-angle Primary Right Eye Glaucoma Open-angle Primary Right Eye Glaucoma Open-angle Primary Right Eye <td ID="encounterTypeDescriptionID3">IOP CHECK</td><td>Drew Miranda MD, FACS</td><td>Drew Miranda MD [facility]</td><td>04/19/2020</td><td>12:24PM</td><td>12:47PM</td><td><content ID="encounterDiagnosisID3-0">Glaucoma Open-angle Primary Right Eye</content>, <content ID="encounterDiagnosisID3-1">Glaucoma Open-angle Primary Left Eye</content></td>Outpatient Attender: Drew Hugo MD, FACS Drew Hugo MD [facility] 04/19/2020 12:24:00 PM EST - 04/19/2020 12:47:00 PM ES T Glaucoma Open-angle Primary Left EyeGlaucoma Open-angle Primary Left EyeGlaucoma Open- angle Primary Left EyeGlaucoma Open-angle Primary Left EyeGlaucoma Open-angle Primary Left EyeGlaucoma Open-angle Primary Left EyeGlaucoma Open-angle Primary Right EyeGlaucoma Open-angle Primary Right EyeGlaucoma Open-angle Primary Right EyeGlaucoma Open-angle Primary Right EyeGlaucoma Open-angle Primary Right EyeGlaucoma Open-angle Primary Right Eye [facility] (Drew Hugo MD [facility]) Glaucoma Open-angle Primary Left Eye Glaucoma Open-angle Primary Left Eye Glaucoma Open-angle Primary Left Eye Glaucoma Open-angle Primary Left Eye Glaucoma Open-angle Primary Left Eye Glaucoma Open-angle Primary Left Eye Glaucoma Open-angle Primary Right Eye Glaucoma Open-angle Primary Right Eye Glaucoma Open-angle Primary Right Eye Glaucoma Open-angle Primary Right Eye Glaucoma Open-angle Primary Right Eye Glaucoma Open-angle Primary Right Eye <td ID="encounterTypeDescriptionID4">[facility]</td><td>Drew Hugo MD, FACS</td><td>Drew Miranda MD [facility]</td><td>02/25/2020</td><td>1:44PM</td><td>2:39PM</td><td><content ID="encounterDiagnosisID4-0">Subconjunctival Hemorrhage</content>, <content ID="encounterDiagnosisID4-1">Glaucoma Open-angle Primary Right Eye</content>, <content ID="encounterDiagnosisID4-2">Glaucoma Open-angle Primary Left Eye</content></td>Outpatient Attender: Drew Hugo MD, FACS Drew Hugo MD [facility] 02/25/2020 01:44:00 PM EST - 02/25/2020 02:39:00 PM ES T Subconjunctival HemorrhageSubconjunctival HemorrhageSubconjunctival HemorrhageSubconjunctival HemorrhageSubconjunctival HemorrhageSubconjunctival HemorrhageSubconjunctival HemorrhageGlaucoma Open-angle Primary Left EyeGlaucoma Open-angle Primary Left EyeGlaucoma Open-angle Primary Left EyeGlaucoma Open- angle Primary Left EyeGlaucoma Open-angle Primary Left EyeGlaucoma Open-angle Primary Left EyeGlaucoma Open-angle Primary Left EyeGlaucoma Open-angle Primary Right EyeGlaucoma Open-angle Primary Right EyeGlaucoma Open-angle Primary Right EyeGlaucoma Open-angle Primary Right EyeGlaucoma Open-angle Primary Right EyeGlaucoma Open-angle Primary Right EyeGlaucoma Open-angle Primary Right Eye [facility] (Drew Hugo MD [facility]) Subconjunctival Hemorrhage Subconjunctival Hemorrhage Subconjunctival Hemorrhage Subconjunctival Hemorrhage Subconjunctival Hemorrhage Subconjunctival Hemorrhage Subconjunctival Hemorrhage Glaucoma Open-angle Primary Left Eye Glaucoma Open-angle Primary Left Eye Glaucoma Open-angle Primary Left Eye Glaucoma Open-angle Primary Left Eye Glaucoma Open-angle Primary Left Eye Glaucoma Open-angle Primary Left Eye Glaucoma Open-angle Primary Left Eye Glaucoma Open-angle Primary Right Eye Glaucoma Open-angle Primary Right Eye Glaucoma Open-angle Primary Right Eye Glaucoma Open-angle Primary Right Eye Glaucoma Open-angle Primary Right Eye Glaucoma Open-angle Primary Right Eye Glaucoma Open-angle Primary Right Eye Immunizations Vaccine Date Status Description Data Source(s) COVID-19 VACCINE Moderna 10/28/2020 12:00:00 AM EDT completed [facility] Vaccine Series Complete: YESThis Data wa s Submitted to [facility] Via [facility] COVID-19 VACCINE Moderna 04/19/2020 12:00:00 AM EST completed [facility] Vaccine Series Complete: YESThis Data wa s Submitted to [facility]. COVID-19 VACCINE Moderna 03/22/2020 12:00:00 AM EST completed [facility] Vaccine Series Complete: NOThis Data was Submitted to [facility] Medications Medication Brand Name Start Date Product Form Dose Route Admi nistrative Instructions Pharmacy Instructions Status Indications Reaction Description Data Source(s) Amoxicillin 500 MG / Clavulanate 125 MG Oral Tablet 50 0-125 mg AMOXICILLIN/POTASSIUM CLAV 02/01/2021 12:00:00 AM EST tablet 20 TAKE ONE TABLET BY MOUTH TWICE A DAY TAKE ONE TABLET BY MOUTH TWICE A DAY SOLD: 02/02/2021 [facility] 0.01 % 12/29/2020 12:00:00 AM EDT drops 7 INSTILL 1 DROP IN THE RIGHT EYE EVERY EVENING INSTILL 1 DROP IN THE RIGHT EYE EVERY EVENING SOLD: 12/30/2020 [facility] bimatoprost 0.1 MG/ML Ophthalmic Solutio n [Lumigan] Lumigan 0.01% Ophthalmic Solution Lumigan 0.01% Ophthalmic Solution 12/28/2020 12:00:00 AM EDT active bimatoprost 0.1 MG/ML Ophthalmic Solution [Lumigan] [facility] (Drew Hugo MD [facility]) 15 mg 11/24/2020 12:00:00 AM EDT tablet 40 TAKE ONE TO TWO TABLETS BY MOUTH EVERY 4 HOURS NEEDED FOR PAIN MAXIMUM DAILY DOSE = 4 TAKE ONE TO TWO TABLETS BY MOUTH EVERY 4 HOURS NEEDED FOR PAIN MAXIMUM DAILY DOSE = 4 SOLD: 11/24/2020 [facility] Famotidine 20 MG Oral Tablet FAMOTIDINE 11/04/2020 12:00:00 AM EDT tab let 60 TAKE ONE TABLET BY MOUTH EVERY DAY TAKE ONE TABLET BY MOUTH EVERY DAY SOLD: 01/25/2021 [facility] Famotidine 20 MG Oral Tablet FAMOTIDINE 11/04/2020 12:00:00 AM EDT tab let 60 TAKE ONE TABLET BY MOUTH EVERY DAY TAKE ONE TABLET BY MOUTH EVERY DAY SOLD: 11/05/2020 [facility] 5-325 mg 11/02/2020 12:00:00 AM EDT tablet 60 TAKE ONE TABLET BY MOUTH TWICE A DAY NEEDED FOR PAIN MAXIMUM DAILY DOSE = 2 TAKE ONE TABLET BY MOUTH TWICE A DAY NEEDED FOR PAIN MAXIMUM DAILY DOSE = 2 SOLD: 11/05/2020 [facility] 2.5-2.5 % 10/20/2020 12:00:00 AM EDT cream 30 APPLY TO AFFECTED AREA(S) DIRECTED APPLY TO AFFECTED AREA(S) DIRECTED SOLD: 11/05/2020 [facility] 10 mg 10/02/2020 12:00:00 AM EDT tablet 90 TAKE ONE TABLET BY MOUTH EVERY DAY TAKE ONE TABLET BY MOUTH EVERY DAY SOLD: 10/10/2020 [facility] 10 mg 10/02/2020 12:00:00 AM EDT tablet 90 TAKE ONE TABLET BY MOUTH EVERY DAY TAKE ONE TABLET BY MOUTH EVERY DAY SOLD: 01/25/2021 [facility] Escitalopram 5 MG Oral Tablet ESCITALOPRAM OXALATE 09/20/2020 12 :00:00 AM EDT tablet 90 TAKE ONE TABLET BY MOUTH EVERY D AY TAKE ONE TABLET BY MOUTH EVERY DAY SOLD: 12/28/2020 [facility] Finasteride 5 MG Oral Tablet FINASTERIDE 09/20/2020 12:00:00 AM EDT ta blet 90 TAKE ONE TABLET BY MOUTH EVERY DAY TAKE ONE TABLET BY MOUTH EVERY DAY SOLD: 12/28/2020 [facility] Finasteride 5 MG Oral Tablet FINASTERIDE 09/20/2020 12:00:00 AM EDT ta blet 90 TAKE ONE TABLET BY MOUTH EVERY DAY TAKE ONE TABLET BY MOUTH EVERY DAY SOLD: 10/02/2020 [facility] Escitalopram 5 MG Oral Tablet ESCITALOPRAM OXALATE 09/20/2020 12 :00:00 AM EDT tablet 90 TAKE ONE TABLET BY MOUTH EVERY D AY TAKE ONE TABLET BY MOUTH EVERY DAY SOLD: 10/02/2020 [facility] 500 mg 09/08/2020 12:00:00 AM EDT tablet 3 TAKE ONE TABLET BY MOUTH EVERY DAY TAKE ONE TABLET BY MOUTH EVERY DAY SOLD: 09/08/2020 [facility] 80 mg 08/21/2020 12:00:00 AM EDT tablet 90 TAKE ONE TABLET BY MOUTH EVERY DAY TAKE ONE TABLET BY MOUTH EVERY DAY SOLD: 08/29/2020 [facility] 80 mg 08/21/2020 12:00:00 AM EDT tablet 90 TAKE ONE TABLET BY MOUTH EVERY DAY TAKE ONE TABLET BY MOUTH EVERY DAY SOLD: 11/17/2020 [facility] Acyclovir 400 MG Oral Tablet ACYCLOVIR 08/09/2020 12:00:00 AM EDT tabl et 180 TAKE ONE TABLET BY MOUTH TWICE A DAY TAKE ONE TABLET BY MOUTH TWICE A DAY SOLD: 08/09/2020 [facility] Acyclovir 400 MG Oral Tablet ACYCLOVIR 08/09/2020 12:00:00 AM EDT tabl et 180 TAKE ONE TABLET BY MOUTH TWICE A DAY TAKE ONE TABLET BY MOUTH TWICE A DAY SOLD: 11/17/2020 [facility] 4 mg 07/30/2020 12:00:00 AM EDT tablet 30 TAKE 10 TABLET BY MOUTH ONCE WEEKY CYCLE 1 THEN 5 TABLETS BY BY MOUTH WEEKLY ALL OTHER CYCLES TAKE 10 TABLET BY MOUTH ONCE WEEKY CYCLE 1 THEN 5 TABLETS BY BY MOUTH WEEKLY ALL OTHER CYCLES SOLD: 08/09/2020 [facility] 4 mg 07/20/2020 12:00:00 AM EDT tablet 12 ONE T ABLET BY MOUTH WEEKLY ONE TABLET BY MOUTH WEEKLY SOLD: 07/22/2020 [facility] 12 % 06/28/2020 12:00:00 AM EDT lotion 226 APPLY TO AFFECTED AREA(S) DAMP SKIN AFTER SHOWERS TO ARMS AND LEGS APPLY TO AFFECTED AREA(S) DAMP SKIN AFTE R SHOWERS TO ARMS AND LEGS SOLD: 07/05/2020 [facility] Escitalopram 5 MG Oral Tablet ESCITALOPRAM OXALATE 05/31/2020 12 :00:00 AM EDT tablet 30 TAKE ONE TABLET BY MOUTH EVERY D AY TAKE ONE TABLET BY MOUTH EVERY DAY SOLD: 07/05/2020 [facility] Escitalopram 5 MG Oral Tablet ESCITALOPRAM OXALATE 05/31/2020 12 :00:00 AM EDT tablet 30 TAKE ONE TABLET BY MOUTH EVERY D AY TAKE ONE TABLET BY MOUTH EVERY DAY SOLD: 07/30/2020 [facility] Escitalopram 5 MG Oral Tablet ESCITALOPRAM OXALATE 05/31/2020 12 :00:00 AM EDT tablet 30 TAKE ONE TABLET BY MOUTH EVERY D AY TAKE ONE TABLET BY MOUTH EVERY DAY SOLD: 06/02/2020 [facility] 5 mg 05/18/2020 12:00:00 AM EDT tablet 180 TAKE ONE TABLET BY MOUTH TWICE A DAY TAKE ONE TABLET BY MOUTH TWICE A DAY SOLD: 11/17/2020 [facility] 5 mg 05/18/2020 12:00:00 AM EDT tablet 180 TAKE ONE TABLET BY MOUTH TWICE A DAY TAKE ONE TABLET BY MOUTH TWICE A DAY SOLD: 08/09/2020 [facility] Drugs 5 mg 05/18/2020 12:00:00 AM EDT tablet 180 TAKE ONE TABLET BY MOUTH TWICE A DAY TAKE ONE TABLET BY MOUTH TWICE A DAY SOLD: 05/21/2020 [facility] 0.5 % 04/19/2020 12:00:00 AM EST gel forming solution 5 INSTILL ONE DROP IN THE RIGHT EYE EVERY MORNING INSTILL ONE DROP IN THE RIGHT EYE EVERY MORNING SOLD: 04/21/2020 [facility] 0.5 % 04/19/2020 12:00:00 AM EST gel forming solution 5 INSTILL ONE DROP IN THE RIGHT EYE EVERY MORNING INSTILL ONE DROP IN THE RIGHT EYE EVERY MORNING SOLD: 10/02/2020 [facility] Timolol 0.005 MG/MG Ophthalmic Gel Timol ol Maleate 0.5% Ophthalmic Gel Forming Solution Timolol Maleate 0.5% Ophthalmic Gel Forming Solution 0 04/19/2020 12:00:00 AM EST active timolol 0.005 MG/MG Ophthalmic Gel [facility] (Drew Hugo MD [facility]) 0.5 % 04/19/2020 12:00:00 AM EST gel forming solution 5 INSTILL ONE DROP IN THE RIGHT EYE EVERY MORNING INSTILL ONE DROP IN THE RIGHT EYE EVERY MORNING SOLD: 08/29/2020 [facility] 0.5 % 04/19/2020 12:00:00 AM EST gel forming solution 5 INSTILL ONE DROP IN THE RIGHT EYE EVERY MORNING INSTILL ONE DROP IN THE RIGHT EYE EVERY MORNING SOLD: 06/26/2020 [facility] Dexamethasone 4 MG Oral Tablet Dexamethasone 4 MG Oral Table t 02/25/2020 12:00:00 AM EST active dexameth asone 4 MG Oral Tablet [facility] (Drew Hugo MD [facility]) 80 mg 02/19/2020 12:00:00 AM EST tablet 16 TAKE ONE TABLET BY MOUTH EVERY DAY TAKE ONE TABLET BY MOUTH EVERY DAY SOLD: 03/27/2020 [facility] 80 mg 02/19/2020 12:00:00 AM EST tablet 30 TAKE ONE TABLET BY MOUTH EVERY DAY TAKE ONE TABLET BY MOUTH EVERY DAY SOLD: 08/09/2020 [facility] 80 mg 02/19/2020 12:00:00 AM EST tablet 16 TAKE ONE TABLET BY MOUTH EVERY DAY TAKE ONE TABLET BY MOUTH EVERY DAY SOLD: 04/27/2020 [facility] 80 mg 02/19/2020 12:00:00 AM EST tablet 19 TAKE ONE TABLET BY MOUTH EVERY DAY TAKE ONE TABLET BY MOUTH EVERY DAY SOLD: 05/13/2020 [facility] 80 mg 02/19/2020 12:00:00 AM EST tablet 30 TAKE ONE TABLET BY MOUTH EVERY DAY TAKE ONE TABLET BY MOUTH EVERY DAY SOLD: 07/05/2020 [facility] 80 mg 02/19/2020 12:00:00 AM EST tablet 16 TAKE ONE TABLET BY MOUTH EVERY DAY TAKE ONE TABLET BY MOUTH EVERY DAY SOLD: 02/25/2020 [facility] 500 mg 02/17/2020 12:00:00 AM EST tablet 10 TAKE ONE TABLET BY MOUTH TWICE A DAY TAKE ONE TABLET BY MOUTH TWICE A DAY SOLD: 02/17/2020 [facility] 500 mg 02/12/2020 12:00:00 AM EST tablet 10 TAKE ONE TABLET BY MOUTH TWICE A DAY TAKE ONE TABLET BY MOUTH TWICE A DAY SOLD: 02/12/2020 [facility] Acyclovir 400 MG Oral Tablet ACYCLOVIR 02/06/2020 12:00:00 AM EST tabl et 180 TAKE ONE TABLET BY MOUTH TWICE A DAY TAKE ONE TABLET BY MOUTH TWICE A DAY SOLD: 04/27/2020 [facility] Acyclovir 400 MG Oral Tablet ACYCLOVIR 02/06/2020 12:00:00 AM EST tabl et 180 TAKE ONE TABLET BY MOUTH TWICE A DAY TAKE ONE TABLET BY MOUTH TWICE A DAY SOLD: 02/11/2020 [facility] Acyclovir 400 MG Oral Tablet ACYCLOVIR 02/02/2020 12:00:00 AM EST tabl et 30 TAKE ONE TABLET BY MOUTH TWICE A DAY TAKE ONE TABLET BY MOUTH TWICE A DAY SOLD: 02/04/2020 [facility] 4 mg 01/13/2020 12:00:00 AM EST tablet 30 TAKE 10 TABLETS BY MOUTH ONCE WEEKLY CYCLE 1 THEN 5 TABLETS BY MOUTH ONCE WEEKLY ALL OTHER CYCLES TAKE 10 TABLETS BY MOUTH ONCE WEEKLY CYCLE 1 THEN 5 TABLETS BY MOUTH ONCE WEEKLY ALL OTHER CYCLES SOLD: 01/15/2020 [facility] 4 mg 01/13/2020 12:00:00 AM EST tablet 27 TAKE 10 TABLETS BY MOUTH ONCE WEEKLY CYCLE 1 THEN 5 TABLETS BY MOUTH ONCE WEEKLY ALL OTHER CYCLES TAKE 10 TABLETS BY MOUTH ONCE WEEKLY CYCLE 1 THEN 5 TABLETS BY MOUTH ONCE WEEKLY ALL OTHER CYCLES SOLD: 02/17/2020 [facility] 4 mg 01/13/2020 12:00:00 AM EST tablet 30 TAKE 10 TABLETS BY MOUTH ONCE WEEKLY CYCLE 1 THEN 5 TABLETS BY MOUTH ONCE WEEKLY ALL OTHER CYCLES TAKE 10 TABLETS BY MOUTH ONCE WEEKLY CYCLE 1 THEN 5 TABLETS BY MOUTH ONCE WEEKLY ALL OTHER CYCLES SOLD: 04/05/2020 [facility] 4 mg 01/13/2020 12:00:00 AM EST tablet 30 TAKE 10 TABLETS BY MOUTH ONCE WEEKLY CYCLE 1 THEN 5 TABLETS BY MOUTH ONCE WEEKLY ALL OTHER CYCLES TAKE 10 TABLETS BY MOUTH ONCE WEEKLY CYCLE 1 THEN 5 TABLETS BY MOUTH ONCE WEEKLY ALL OTHER CYCLES SOLD: 10/02/2020 [facility] 4 mg 01/13/2020 12:00:00 AM EST tablet 30 TAKE 10 TABLETS BY MOUTH ONCE WEEKLY CYCLE 1 THEN 5 TABLETS BY MOUTH ONCE WEEKLY ALL OTHER CYCLES TAKE 10 TABLETS BY MOUTH ONCE WEEKLY CYCLE 1 THEN 5 TABLETS BY MOUTH ONCE WEEKLY ALL OTHER CYCLES SOLD: 05/02/2020 [facility] 4 mg 01/13/2020 12:00:00 AM EST tablet 30 TAKE 10 TABLETS BY MOUTH ONCE WEEKLY CYCLE 1 THEN 5 TABLETS BY MOUTH ONCE WEEKLY ALL OTHER CYCLES TAKE 10 TABLETS BY MOUTH ONCE WEEKLY CYCLE 1 THEN 5 TABLETS BY MOUTH ONCE WEEKLY ALL OTHER CYCLES SOLD: 07/05/2020 [facility] 4 mg 01/13/2020 12:00:00 AM EST tablet 30 TAKE 10 TABLETS BY MOUTH ONCE WEEKLY CYCLE 1 THEN 5 TABLETS BY MOUTH ONCE WEEKLY ALL OTHER CYCLES TAKE 10 TABLETS BY MOUTH ONCE WEEKLY CYCLE 1 THEN 5 TABLETS BY MOUTH ONCE WEEKLY ALL OTHER CYCLES SOLD: 08/29/2020 [facility] Finasteride 5 MG Oral Tablet FINASTERIDE 01/09/2020 12:00:00 AM EST ta blet 30 TAKE ONE TABLET BY MOUTH EVERY DAY TAKE ONE TABLET BY MOUTH EVERY DAY SOLD: 01/11/2020 [facility] Finasteride 5 MG Oral Tablet FINASTERIDE 01/09/2020 12:00:00 AM EST ta blet 25 TAKE ONE TABLET BY MOUTH EVERY DAY TAKE ONE TABLET BY MOUTH EVERY DAY SOLD: 08/29/2020 [facility] Finasteride 5 MG Oral Tablet FINASTERIDE 01/09/2020 12:00:00 AM EST ta blet 15 TAKE ONE TABLET BY MOUTH EVERY DAY TAKE ONE TABLET BY MOUTH EVERY DAY SOLD: 07/05/2020 [facility] Finasteride 5 MG Oral Tablet FINASTERIDE 01/09/2020 12:00:00 AM EST ta blet 15 TAKE ONE TABLET BY MOUTH EVERY DAY TAKE ONE TABLET BY MOUTH EVERY DAY SOLD: 05/13/2020 [facility] Finasteride 5 MG Oral Tablet FINASTERIDE 01/09/2020 12:00:00 AM EST ta blet 30 TAKE ONE TABLET BY MOUTH EVERY DAY TAKE ONE TABLET BY MOUTH EVERY DAY SOLD: 03/16/2020 [facility] Finasteride 5 MG Oral Tablet FINASTERIDE 01/09/2020 12:00:00 AM EST ta blet 15 TAKE ONE TABLET BY MOUTH EVERY DAY TAKE ONE TABLET BY MOUTH EVERY DAY SOLD: 07/22/2020 [facility] Finasteride 5 MG Oral Tablet FINASTERIDE 01/09/2020 12:00:00 AM EST ta blet 30 TAKE ONE TABLET BY MOUTH EVERY DAY TAKE ONE TABLET BY MOUTH EVERY DAY SOLD: 02/12/2020 [facility] Finasteride 5 MG Oral Tablet FINASTERIDE 01/09/2020 12:00:00 AM EST ta blet 15 TAKE ONE TABLET BY MOUTH EVERY DAY TAKE ONE TABLET BY MOUTH EVERY DAY SOLD: 06/02/2020 [facility] Finasteride 5 MG Oral Tablet FINASTERIDE 01/09/2020 12:00:00 AM EST ta blet 30 TAKE ONE TABLET BY MOUTH EVERY DAY TAKE ONE TABLET BY MOUTH EVERY DAY SOLD: 07/30/2020 [facility] Finasteride 5 MG Oral Tablet FINASTERIDE 01/09/2020 12:00:00 AM EST ta blet 15 TAKE ONE TABLET BY MOUTH EVERY DAY TAKE ONE TABLET BY MOUTH EVERY DAY SOLD: 06/17/2020 [facility] Finasteride 5 MG Oral Tablet FINASTERIDE 01/09/2020 12:00:00 AM EST ta blet 30 TAKE ONE TABLET BY MOUTH EVERY DAY TAKE ONE TABLET BY MOUTH EVERY DAY SOLD: 04/17/2020 [facility] 10 mg 12/03/2019 12:00:00 AM EDT tablet 90 TAKE ONE TABLET BY MOUTH EVERY DAY TAKE ONE TABLET BY MOUTH EVERY DAY SOLD: 07/09/2020 [facility] 10 mg 12/03/2019 12:00:00 AM EDT tablet 90 TAKE ONE TABLET BY MOUTH EVERY DAY TAKE ONE TABLET BY MOUTH EVERY DAY SOLD: 02/02/2020 [facility] Dexamethasone 1 MG/ML / Tobramycin 3 MG/ ML Ophthalmic Suspension [Tobradex] TobraDex 0.3-0.1% Ophthalmic Suspension TobraDex 0.3-0.1% Ophthalmic Suspension 10/16/2019 12:00:00 AM EDT aborted dexamethasone 1 MG/ML / tobramycin 3 MG/ML Ophthalmic Suspension [Tobradex] [facility] (Drew Hugo MD [facility]) 0.01 % 10/07/2019 12:00:00 AM EDT drops 7 INSTILL 1 DROP IN EACH EYE EVERY EVENING INSTILL 1 DROP IN EACH EYE EVERY EVENING SOLD: 04/21/2020 [facility] 0.01 % 10/07/2019 12:00:00 AM EDT drops 7 INSTILL 1 DROP IN EACH EYE EVERY EVENING INSTILL 1 DROP IN EACH EYE EVERY EVENING SOLD: 07/30/2020 [facility] 0.01 % 10/07/2019 12:00:00 AM EDT drops 7 INSTILL 1 DROP IN EACH EYE EVERY EVENING INSTILL 1 DROP IN EACH EYE EVERY EVENING SOLD: 10/02/2020 [facility] bimatoprost 0.1 MG/ML Ophthalmic Solutio n [Lumigan] Lumigan 0.01% Ophthalmic Solution Lumigan 0.01% Ophthalmic Solution 10/06/2019 12:00:00 AM EDT 1 aborted bimatoprost 0.1 MG/ML Ophthalmic Solution [Lumigan] [facility] (Drew Hugo MD [facility]) Escitalopram 5 MG Oral Tablet ESCITALOPRAM OXALATE 06/17/2019 12 :00:00 AM EDT tablet 30 TAKE ONE TABLET BY MOUTH EVERY D AY TAKE ONE TABLET BY MOUTH EVERY DAY SOLD: 05/02/2020 [facility] Escitalopram 5 MG Oral Tablet ESCITALOPRAM OXALATE 06/17/2019 12 :00:00 AM EDT tablet 30 TAKE ONE TABLET BY MOUTH EVERY D AY TAKE ONE TABLET BY MOUTH EVERY DAY SOLD: 03/03/2020 [facility] Escitalopram 5 MG Oral Tablet ESCITALOPRAM OXALATE 06/17/2019 12 :00:00 AM EDT tablet 20 TAKE ONE TABLET BY MOUTH EVERY D AY TAKE ONE TABLET BY MOUTH EVERY DAY SOLD: 01/15/2020 [facility] Escitalopram 5 MG Oral Tablet ESCITALOPRAM OXALATE 06/17/2019 12 :00:00 AM EDT tablet 30 TAKE ONE TABLET BY MOUTH EVERY D AY TAKE ONE TABLET BY MOUTH EVERY DAY SOLD: 04/05/2020 [facility] Escitalopram 5 MG Oral Tablet ESCITALOPRAM OXALATE 06/17/2019 12 :00:00 AM EDT tablet 30 TAKE ONE TABLET BY MOUTH EVERY D AY TAKE ONE TABLET BY MOUTH EVERY DAY SOLD: 12/16/2019 [facility] 5 mg 06/17/2019 12:00:00 AM EDT tablet 30 TAKE ONE TABLET BY MOUTH EVERY DAY TAKE ONE TABLET BY MOUTH EVERY DAY SOLD: 02/02/2020 [facility] 5 mg 02/20/2019 12:00:00 AM EST tablet 180 TAKE ONE TABLET BY MOUTH TWICE A DAY TAKE ONE TABLET BY MOUTH TWICE A DAY SOLD: 02/12/2020 [facility] 80 mg 01/28/2019 12:00:00 AM EST tablet 15 TAKE ONE TABLET BY MOUTH EVERY DAY TAKE ONE TABLET BY MOUTH EVERY DAY SOLD: 01/26/2020 [facility] Finasteride 5 MG Oral Tablet FINASTERIDE 12/20/2018 12:00:00 AM EDT ta blet 30 TAKE ONE TABLET BY MOUTH EVERY DAY TAKE ONE TABLET BY MOUTH EVERY DAY SOLD: 12/16/2019 [facility] bimatoprost 0.1 MG/ML Ophthalmic Solutio n [Lumigan] Lumigan 0.01% Ophthalmic Solution Lumigan 0.01% Ophthalmic Solution 09/18/2018 12:00:00 AM EDT 1 aborted bimatoprost 0.1 MG/ML Ophthalmic Solution [Lumigan] [place] (Drew Hugo MD [facility]) Insurance Providers Payer name Policy type / Coverage type Policy ID Covered constitution party ID Covered constitution party's relationship to saldivar Policy Saldivar Plan Information [employer] Medigap Part B [id number] Self [id number] Umr [employer] Medigap Part B [id number] Self [id number] [employer]Um[employer] (Old) Medigap Part B [id number] Self [id number] [employer] Ppo Medigap Part B [id number] Self [id number] [employer]/Umr (Old) Medigap Part B [id number] Self [id number] Medicare Part B of [facility] Other 0 [id number] Self 0 Medicare Natl [employer]t [employer] Medicare Primary [id number] Self [id number] MEDICARE [id number] SP [id number] Medicare Part B of [facility] Other 0 [id number] Self 0 Medicare Part B of [facility] Other 0 [id number] Self 0 Medicare Part B of [facility] Other 0 [id number] Self 0 Medicare Part B of [facility] Other 0 [id number] Self 0 Medicare Part B of [facility] Other 0 [id number] Self 0 Medicare Part B of [facility] Other 0 [id number] Self 0 Medicare Part B of [facility] Other 0 [id number] Self 0 Medicare Part B of [facility] Other 0 [id number] Self 0 Medicare Natl Govt [employer] Medicare Primary [id number] Self [id number] MEDICARE [id number] SP [id number] Medicare Natl Govt Servic Medicare Primary [id number] Self 7 [id number] MEDICARE [id number] SP [id number] A MEDICARE [id number] SP [id number] A Medicare Natl Govt Serv[employer] Medicare Primary [id number] Self 0 [id number] Medicare Part B [facility] Other 0 [id number] S elf 0 Medicare Natl Govt Servic Medicare Primary [id number] Self 0 [id number] Medicare Natl Govt Servic Medicare Primary [id number] Self [id number] Medicare Natl Govt Servic Medicare Primary [id number] Self 0 [id number] Medicare Natl Govt [employer] Medicare Primary [id number] Self 0 [id number] MEDICARE A [id number] Self [id number] A Medicare Natl Govt [employer] Medicare Primary [id number] Self 0 [id number] Medicare Natl Govt [employer]ic Medicare Primary [id number] Self 0 [id number] Medicare Natl Govt Servic Medicare Primary [id number] Self [id number] Medicare Natl Govt Servic Medicare Primary [id number] Self [id number] A [employer] [id number] SP [id number] [employer] [id number] SP [id number] [employer] [id number] SP [id number] MEDICARE [id number] SP [id number] A UMR [facility] [id number] SP [id number] [employer] U [id number] Self [id number] Umr ([place] [employer]) Medigap Part B [id number] Self [id number] Umr Commercial [id number] Self [id number] UMR [facility] [id number] SP [id number] [employer] PPO O [id number] S [id number] MEDICARE C [id number] S [id number] A [employer] [place] Other 0 [id number] Self 0 [employer] PPO S [id number] S [id number] MEDICARE P [id number] S [id number] A [employer] [place] Other 0 [id number] Self 0 MEDICARE [id number] SP [id number] UMR [facility] [id number] SP [id number] [employer] [place] Other 0 [id number] Self 0 [employer] [place] Other 0 [id number] Self 0 [employer] [place] Other 0 [id number] Self 0 [employer] [place] Other 0 [id number] Self 0 UMR O [id number] S [id number] MEDICARE C [id number] S [id number] [employer] [place] Other 0 [id number] Self 0 [employer] [place] Other 0 [id number] Self 0 [employer] [place] Other 0 [id number] Self 0 [employer] [id number] Self [id number] Umr Commercial [id number] Self [id number] Medicare - [place] Medicare Primary [id number] Self [id number] [facility] [id number] SP [id number] MEDICARE - [facility] [id number] S [id number] UMR [id number] MEDICARE [id number] SELF [id number] [id number] [employer] Medigap Part B [id number] Self [employer] PPO O [id number] S [id number] Medicare Medicare Primary [id number] Self [place] Primary [id number] Self [id number] [employer] Medigap Part B [id number] Self [id number] [place] Medicare Primary [id number] Self [id number] [employer] Medigap Part B [id number] Self [id number] [place] Medicare Primary [id number] Self [id number] Problems, Conditions, and Diagnoses Code Display Name Description Problem Type Effective Dates Data Source(s) [id number] Pure hypercholesterolemia Pure hypercholesterolemia Pr oblem 10/25/2020 12:00:00 AM EDT [facility] ([facility] ) [id number] Essential hypertension Essential hypertension Problem 10/25/2020 12:00:00 AM EDT [facility] ([facility]) 372.72 Subconjunctival Hemorrhage Subconjunctival Hemorrhage Problem 02/25/2020 12:00:00 AM EST - 04/19/2020 12:00:00 AM EST [facility] (Drew Hugo MD [facility]) 372.72 Subconjunctival Hemorrhage Subconjunctival Hemorrhage Problem 02/25/2020 12:00:00 AM EST - 04/19/2020 12:00:00 AM EST [facility] (Drew Hugo MD [facility]) 372.72 Subconjunctival Hemorrhage Subconjunctival Hemorrhage Problem 02/25/2020 12:00:00 AM EST - 04/19/2020 12:00:00 AM EST [facility] (Drew Hugo MD [facility]) 372.72 Subconjunctival Hemorrhage Subconjunctival Hemorrhage Problem 02/25/2020 12:00:00 AM EST - 04/19/2020 12:00:00 AM EST [facility] (Drew Hugo MD [facility]) 372.72 Subconjunctival Hemorrhage Subconjunctival Hemorrhage Problem 02/25/2020 12:00:00 AM EST [facility] (Drew Hugo MD [facility]) 372.72 Subconjunctival Hemorrhage Subconjunctival Hemorrhage Problem 02/25/2020 12:00:00 AM EST - 04/19/2020 12:00:00 AM EST [facility] (Drew Hugo MD [facility]) 372.72 Subconjunctival Hemorrhage Subconjunctival Hemorrhage Problem 02/25/2020 12:00:00 AM EST - 04/19/2020 12:00:00 AM EST [facility] (Drew Hugo MD [facility]) Surgeries/Procedures Procedure Description Date Indications Data Source(s) Endoscopy Nasal Diagnostic 02/10/2021 12:00:00 AM EST [facility] ([facility], ) Myringotomy W/ Aspiration/Eustachian Tube Inflate 02/10/2021 12:00:00 AM EST [facility] ([facility], ) OFFICE OUTPATIENT NEW 30 MINUTES 02/10/2021 12:00:00 A M EST [facility] ([facility] [place]) ARTHROCENTESIS ASPIR&/INJECTION MAJOR JT/BURSA 021 12:00:00 AM EDT [facility] ([facility]) OFFICE OUTPATIENT VISIT 15 MINUTES 11/09/2020 12:00:00 AM EDT [facility] ([facility]) OFFICE OUTPATIENT NEW 30 MINUTES 10/25/2020 12:00:00 A M EDT [facility] ([facility]) Intermediate Eye Exam Established Patient Intermediate Eye Exam Established Patient 05/18/2020 12:00:00 AM EDT [facility] (Jacob Hugo MD [facility]) Intermediate Eye Exam Established Patient Intermediate Eye Exam Established Patient 05/18/2020 12:00:00 AM EDT [facility] (Jacob Hugo MD [facility]) Intermediate Eye Exam Established Patient Intermediate Eye Exam Established Patient 04/19/2020 12:00:00 AM EST [facility] (Jacob Hugo MD [facility]) Surgical / procedural history : Knee Gamaliel erasmo - 1989, Ankle Surgery, Melanoma removed from the right arm in 2010, Chemo Surgical / procedural history : Knee Surgery - 1989, Ankle Surgery, Melanoma removed from the right arm in 2010, Chemo 02/25/2020 12:00:00 AM EST [facility] (Jacob Hugo MD [facility]) Discission of membranous cataract, secondary (procedur e) 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 Miranda 02/04/19 02/25/2020 12:00:00 AM EST [facility] (Jacob Hugo MD [facility]) Intermediate Eye Exam Established Patient Intermediate Eye Exam Established Patient 02/25/2020 12:00:00 AM EST [facility] (Jacob Hugo MD [facility]) Intermediate Eye Exam Established Patient Intermediate Eye Exam Established Patient 02/25/2020 12:00:00 AM EST [facility] (Jacob Hugo MD [facility]) Results No Information Social History Code Duration Value Status Description Data Source(s ) Smoking 02/03/2021 08:06:41 PM EST Never smoked tobacco (hilaria miller) completed Never smoked tobacco (finding) [facility] (Drew Hugo MD [facility]) Smoking 01/28/2021 07:57:58 AM EST Never smoked tobacco (findi ng) completed Never smoked tobacco (finding) [facility] (Drew Hugo MD [facility]) Smoking 01/16/2021 01:26:10 PM EST Never smoked tobacco (findi ng) completed Never smoked tobacco (finding) [facility] (Drew Hugo MD [facility]) Smoking 11/14/2020 02:10:32 PM EDT Never smoked tobacco (findi ng) completed Never smoked tobacco (finding) [facility] (Drew Hugo MD [facility]) Smoking 09/30/2020 01:23:23 PM EDT Never smoked tobacco (findi ng) completed Never smoked tobacco (finding) [facility] (Drew Hugo MD [facility]) Smoking 05/18/2020 02:02:00 PM EDT Never smoked tobacco (findi ng) completed Never smoked tobacco (finding) [facility] (Drew Hugo MD [facility]) Smoking 02/25/2020 02:42:41 PM EST Never smoked tobacco (findi ng) completed Never smoked tobacco (finding) [facility] (Drew Hugo MD [facility]) Smoking 01/05/2020 12:00:00 AM EST Patient has never smoked co mpleted Patient has never smoked [facility] ([facility] [place]) Vital Signs ID Date Data Source UNK Name Value Range Interpretation Code Description Data Source(s) Systolic blood pressure 140 mm[Hg] 140 mm[Hg[facility] Body weight 201.00 [lb_av] 201.00 [facility]lb_av] [facility] [place] Diastolic blood pressure 90 mm[Hg] 90 mm[Hg] [facility] ([facility] [place] Body mass index (BMI) [Ratio] 28.0 kg/m2 28.0 k g/m2 [facility] ([facility] [place]) Heart rate 58 /min 58 /min [facility] ([facility]) [place] body weight 172 [lb_av] 172 [lb_av] [facility] ([facility] [place]) Body weight 91.174 kg 91.174 kg [facility] ([facility]) Body surface area Derived from formula 2.11 m2 2.11 m2 [facility] ([facility] [place]) Oxygen saturation in Arterial blood by Pulse oximetry 98 % 98 % [facility] ([facility] [place]) Body height 71 [in_i] 71 [in_i] [facility]) " Body temperature 97.1 [degF] 97.1 [degF] [facility] ([facility]) Body height 70 [in_i] 70 [in_i] [facility]) " Body weight 203.38 [lb_av] 203.38 [lb_av] [facility] ([facility]) Body mass index (BMI) [Ratio] 29.2 kg/m2 29.2 k g/m2 [facility] ([facility]) Body mass index (BMI) [Ratio] 29.0 kg/m2 29.0 k g/m2 [facility] ([facility] [place]) Body weight 208.00 [lb_av] 208.00 [lb_av] [facility] ([facility] [place]) [place] body weight 172 [lb_av] 172 [lb_av] [facility] [place] Systolic blood pressure 108 mm[Hg] 108 mm[Hg] [facility] ([facility]) Diastolic blood pressure 68 mm[Hg] 68 mm[Hg] [facility] ([facility]) Body weight 94.349 kg 94.349 kg [facility] ([facility]) Body surface area Derived from formula 2.14 m2 2.14 m2 [facility] ([facility] [place]) Heart rate 70 /min 70 /min [facility] ([facility]) Oxygen saturation in Arterial blood by Pulse oximetry 98 % 98 % [facility] ([facility] [place]) Room Air Body height 71 [in_i] 71 [in_i] [facility] ([facility]) " Patient Treatment Plan of Care Planned Activity Planned Date Details Description Data Source (s) bimatoprost 0.1 MG/ML Ophthalmic Solution [Lumigan] 12/29/19 21 12:00:00 AM [facility] (Drew Hugo MD [facility]) Timolol 0.005 MG/MG Ophthalmic Gel 04/19/2020 12:00:00 AM EST CHRIS (Drew Hugo MD [facility]) Dexamethasone 1 MG/ML / Tobramycin 3 MG/ML Ophthalmic Suspension [Tobradex] 10/16/2019 12:00:00 AM EDT CHRIS (Jacob Hugo MD [facility]) bimatoprost 0.1 MG/ML Ophthalmic Solution [Lumigan] 10/06/19 20 12:00:00 AM EDT CHRIS (Drew Hugo MD [facility]) bimatoprost 0.1 MG/ML Ophthalmic Solution [Lumigan] 09/19/19 19 12:00:00 AM EDT CHRIS (Drew Hugo MD [facility])
[2021-02-14] MEDS ORDERED: AMOX500T2 (11:07)
[2021-02-14] MEDS ORDERED: DEXA4TA PO (11:07)
[2021-02-14] MEDS ORDERED: POMA2CAP (11:07)
--- OUTSIDE RECORDS SUMMARY | 2021-02-14 11:36 | CCD ---
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 Care Lab Director Name Role Phone MCELHERAN, MARITO PA Unavailable [...] Unavailable MCELHERAN, MARITO PA Unavailable Unavailable MCELHERAN, AMRITO PA Unavailable Unavailable MCELHERAN, MARITO PA Unavailable [...] Silvano Russell MD, FACS Unavailable Unavailable Larsen Uhgo, Silvano Russell MD, FACS Unavailable Unavailable Larsen [...] is protected by Article 27-F of the [facility] Public Health law. If you continue you may have access to information: Regarding HIV / AIDS; Provided by facilities licensed or operated by the [facility] Office of Mental Health; or Provided by the [facility] Office for People With Developmental Disabilities. If such information is present, then the following [facility] mandated warning applies: This information has been [...] law may result in a fine or intermediate sentence or both. A general authorization for the release of medical or other information is NOT sufficient authorization for further disc losure. Allergies and Adverse Reactions Type Description Substance Reaction Status Data Source(s ) Allergy to substance No Known Allergies No known allergies (situation ) [facility] (Drew Hugo MD [facility]) Allergy to substance No Known Allergies No known allergies (situation ) [facility] (Drew Hugo MD [facility]) Allergy to substance No Known Allergies No known allergies (situation ) [facility] (Drew Hugo MD [facility]) Allergy to substance No Known Allergies No known allergies (situation ) [facility] (Drew Hugo MD [facility]) Allergy to substance No Known Allergies No known allergies (situation ) [facility] (Drew Hugo MD [facility]) Allergy to substance No Known Allergies No known allergies (situation ) [facility] (Drew Hugo MD [facility]) Allergy to substance No Known Allergies No known allergies (situation ) [facility] (Drew Hugo MD [facility]) Family History Family Member Name Family Member Gender Family Member Status Date o f Status Description Data Source(s) Unknown Male Problem [facility] ([facility] Unknown Unknown Problem [facility] ([facility], ) Unknown Male Problem [facility] ([facility]) Encounters Encounter Providers Location Date Indications Data Source(s ) Outpatient Attender: Drew Painting PH.D., M.D. Janina/Bairon/Silvano terrazas/Honey 02/10/2021 09:15:00 AM EST [facility] ([facility]) OFFICE OUTPATIENT VISIT 15 MINUTES Attender: MARITO BENITEZ Physical Therapy 11/09/2020 05:00:00 PM EDT [facility] ([facility]) OFFICE OUTPATIENT NEW 30 MINUTES Attender: MARITO BENITEZ Physical Therapy 10/25/2020 01:30:00 PM EDT [facility] ([facility]) Outpatient<td ID="encounterTypeDescripti onID0">Rx Refills/Changes</td><td>Drew Miranda MD, [facility]</td><td></td><td>12/28/2020</td><td>09/30/2020 3:00PM</td><td>09/30/2020 11:59PM</td><td></td> Attender: Drew Hugo MD, FACS 09/30/2020 03:00:00 PM EDT - 09/30/2020 11:59:00 PM EDT [facility] (Drew Hugo MD [facility]) Outpatient<td ID="encounterTypeDescripti onID1">IOP CHECK</td><td>Drew Hugo MD, [facility]</td><td>Drew Miranda MD [facility]</td><td>09/30/2020</td><td>9:38AM</td><td>10:32AM</td><td><content ID="encounterDiagnosisID1-0">Glaucoma Open-angle Primary Right Eye</content>, <content ID="encounterDiagnosisID1-1">Glaucoma Open-angle Primary Left Eye</content></td> Attender: Drew Hugo MD, FACS Drew Miranda MD [facility] 09/30/2020 09:38:00 AM EDT - 09/30/2020 10:32:00 AM EDT Glaucoma Open-angle Primary Left EyeGlaucoma Open-angle Primary Left EyeGlaucoma Open-angle Primary Left EyeGlaucoma Open-angle Primary Left EyeGlaucoma Open-angle Primary Left EyeGlaucoma Open-angle Primary Right EyeGlaucoma Open-angle Primary Right EyeGlaucoma Open-angle Primary Right EyeGlaucoma Open-angle Primary Right EyeGlaucoma Open-angle Primary Right Eye [place] (Drew Hugo MD [facility]) Glaucoma Open-angle Primary Left Eye Glaucoma Open-angle Primary Left Eye Glaucoma Open-angle Primary Left Eye Glaucoma Open-angle Primary Left Eye Glaucoma Open-angle Primary Left Eye Glaucoma Open-angle Primary Right Eye Glaucoma Open-angle Primary Right Eye Glaucoma Open-angle Primary Right Eye Glaucoma Open-angle Primary Right Eye Glaucoma Open-angle Primary Right Eye <td ID="encounterTypeDescriptionID2">IOP CHECK</td><td>Drew Miranda MD, FACS</td><td>Drew Miranda MD [facility]</td><td>05/18/2020</td><td>12:56PM</td><td>2:01PM</td><td><content ID="encounterDiagnosisID2-0">Glaucoma Open-angle Primary Right Eye</content>, <content ID="encounterDiagnosisID2-1">Glaucoma Open-angle Primary Left Eye</content></td>Outpatient Attender: Drew Hugo MD, FACS Drew Hugo MD [facility] 05/18/2020 12:56:00 PM EDT - 05/18/2020 02:01:00 [...] Primary Right Eye [facility] (Drew Hugo MD [facility]) Glaucoma Open-angle Primary Left Eye Glaucoma Open-angle [...] ID="encounterTypeDescriptionID3">IOP CHECK</td><td>Drew Miranda MD, FACS</td><td>Drew Miranda MD [facility]</td><td>04/19/2020</td><td>12:24PM</td><td>12:47PM</td><td><content ID="encounterDiagnosisID3-0">Glaucoma Open-angle Primary Right Eye</content>, <content ID="encounterDiagnosisID3-1">Glaucoma Open-angle Primary Left Eye</content></td>Outpatient Attender: Drew Hugo MD, FACS Drew Hugo MD [facility] 04/19/2020 12:24:00 PM EST - 04/19/2020 12:47:00 [...] Primary Right Eye [facility] (Drew Hugo MD [facility]) Glaucoma Open-angle Primary Left Eye Glaucoma Open-angle Primary Left Eye Glaucoma Open-angle Primary Left Eye Glaucoma Open-angle Primary Left Eye Glaucoma Open-angle Primary Left Eye Glaucoma Open-angle Primary Left Eye Glaucoma Open-angle Primary Right Eye Glaucoma Open-angle Primary Right Eye Glaucoma Open-angle Primary Right Eye Glaucoma Open-angle Primary Right Eye Glaucoma Open-angle Primary Right Eye Glaucoma Open-angle Primary Right Eye Outpatient<td ID="encounterTypeDescripti onID4">[facility]</td><td>Drew Miranda MD, FACS</td><td>Drew Miranda MD [facility]</td><td>02/25/2020</td><td>1:44PM</td><td>2:39PM</td><td><content ID="encounterDiagnosisID4-0">Subconjunctival Hemorrhage</content>, <content ID="encounterDiagnosisID4-1">Glaucoma Open-angle Primary Right Eye</content>, <content ID="encounterDiagnosisID4-2">Glaucoma Open-angle Primary Left Eye</content></td> Attender: Drew Hugo MD, FACS Drew Miranda MD [facility] 02/25/2020 01:44:00 PM EST - 02/25/2020 02:39:00 PM EST Subconjunctival HemorrhageSubconjunctival HemorrhageSubconjunctival HemorrhageSubconjunctival HemorrhageSubconjunctival HemorrhageSubconjunctival HemorrhageSubconjunctival [...] Primary Right Eye [facility] (Drew Hugo MD [facility]) Subconjunctival Hemorrhage Subconjunctival Hemorrhage Subconjunctival Hemorrhage Subconjunctival [...] Complete: YESThis Data wa s Submitted to [facility] Via [employer]. COVID-19 VACCINE Moderna 04/19/2020 12:00:00 AM EST completed [facility]IS Vaccine Series Complete: YESThis Data wa s Submitted to [facility] [employer]. COVID-19 VACCINE Moderna 03/22/2020 12:00:00 AM EST completed NYSIIS Vaccine Series Complete: NOThis Data was Submitted to [facility] [employer]. Medications Medication Brand Name Start Date Product [...] Ophthalmic Solution [Lumigan] [facility] (Drew Hugo MD [facility]) 15 mg 11/24/2020 12:00:00 AM EDT tablet [...] BY MOUTH EVERY DAY SOLD: 12/28/2020 [facility] Finasteride 5 MG Oral Tablet [...] BY MOUTH TWICE A DAY SOLD: 08/09/2020 [facility] Acyclovir 400 MG Oral Tablet ACYCLOVIR [...] MG/MG Ophthalmic Gel [facility] (Drew Hugo MD [facility]) 0.5 % 04/19/2020 12:00:00 AM EST gel [...] MG Oral Tablet [facility] (Drew Hugo MD [facility]) 80 mg 02/19/2020 12:00:00 AM EST tablet [...] BY MOUTH TWICE A DAY SOLD: 02/04/2020 [facility] 4 mg 01/13/2020 12:00:00 AM EST [...] TABLET BY MOUTH EVERY DAY SOLD: 07/05/2020 [facility] Finasteride 5 MG Oral Tablet FINASTERIDE [...] Ophthalmic Suspension [Tobradex] [facility] (Drew Hugo MD [facility]) 0.01 % 10/07/2019 12:00:00 AM EDT drops [...] Ophthalmic Solution [Lumigan] [facility] (Drew Hugo MD [facility]) Escitalopram 5 MG Oral Tablet ESCITALOPRAM OXALATE [...] Ophthalmic Solution [Lumigan] [facility] (Drew Hugo MD [facility]) Insurance Providers Payer name Policy type / Coverage type Policy ID Covered democrat ID Covered democrat's relationship to saldivar Policy Saldivar Plan Information [place] P[employer] Medigap Part B [id number] Self [id number] Umr [employer] [employer] Medigap Part B [id number] Self [id number] [employer]/Umr (Old) Medigap Part B [id number] Self [id number] [employer] P[employer] Medigap Part B [id number] Self [id number] [place]/Umr (Old) Medigap Part B [id number] Self [id number] Medicare Part B of [facility] Other 0 [id number] Self 0 Medicare Natl Govt Servic Medicare Primary [id number] Self [id number] MEDICARE [id number] SP [id number] Medicare Part B [facility] Other 0 [id number] Self 0 Medicare Part B of [facility] Other 0 [id number] Self 0 Medicare Part B of [facility] Other 0 [id number] Self 0 Medicare Part B of [facility] Other 0 [id number] Self 0 Medicare Part B of [facility] Other 0 [id number] Self 0 Medicare Part B of [facility] Other 0 [id number] Self 0 Medicare Part B of [facility] Other 0 [id number] Self 0 Medicare Part B of [facility] Other 0 [id number] Self 0 Medicare Natl Govt Servic Medicare Primary [id number] Self [id number] MEDICARE [id number] SP [id number] Medicare Natl Govt Servic Medicare Primary [id number] Self 7 [id number] MEDICARE [id number] SP [id number] A MEDICARE [id number] SP [id number] A Medicare Natl Govt Servic Medicare Primary [id number] Self 0 [id number] Medicare Part B [facility] Other 0 [id number] S elf 0 Medicare Natl Govt Servic Medicare Primary [id number] Self 0 [id number] Medicare Natl Govt Servic Medicare Primary [id number] Self 0 [id number] Medicare Natl Govt Servic Medicare Primary [id number] Self 0 [id number] Medicare Natl Govt Servic Medicare Primary [id number] Self 0 [id number] MEDICARE A [id number] Self [id number] A Medicare Natl Govt Servic Medicare Primary [id number] Self 0 [id number] Medicare Natl Govt Servic Medicare Primary [id number] Self 0 [id number] Medicare Natl Govt Servic Medicare Primary [id number] Self 0 [id number] Medicare Natl Govt Servic Medicare Primary [id number] Self [id number] A [employer] [id number] SP [id number] POMCO [id number] SP [id number] [employer] [id number] SP [id number] MEDICARE [id number] SP [id number] A UMR [facility] [id number] SP [id number] [employer] U [id number] Self [id number] Umr (New [place]) Medigap Part B [id number] Self [id number] Umr Commercial [id number] Self [id number] UMR [facility] [id number] SP [id number] [employer] PPO O [id number] S [id number] MEDICARE C [id number] S [id number] A [employer] Other 0 [id number] Self 0 [employer]OM[employer] PPO S [id number] S [id number] MEDICARE P [id number] S [id number] A [employer] [place] Other 0 [id number] Self 0 MEDICARE [id number] SP [id number] UMR [facility] [id number] SP [id number] [employer] [place] Other 0 [id number] Self 0 [employer] [place] Other 0 [id number] Self 0 [employer] [place] Other 0 [id number] Self 0 [employer] [place] Other 0 [id number] Self 0 UMR O [id number] S [id number] MEDICARE C [id number] S [id number] [employer] [place] Other 0 [id number] Self 0 [employer] [place] Other 0 [id number] Self 0 [employer] [place] Other 0 [id number] Self 0 [employer] Commercial [id number] Self [id number] Umr Commercial [id number] Self [id number] Medicare - [place] Medicare Primary [id number] Self [id number] [facility] [id number] SP [id number] MEDICARE - [facility] [id number] S [id number] R [id number] MEDICARE [id number] SELF [id number] [id number] [place] Medigap Part B [id number] Self [employer]OM[employer] PPO O [id number] S [id number] Medicare Medicare Primary [id number] [place] Medicare Primary [id number] Self [id number] [employer] Medigap Part B [id number] Self [id number] [place] Medicare Primary [id number] Self [id number] [employer] Medigap Part B [id number] Self [id number] [place] Primary [id number] Self [id number] Problems, Conditions, and Diagnoses Code Display Name Description Problem Type Effective Dates Data Source(s) 553097582 Pure hypercholesterolemia Pure hypercholesterolemia Pr oblem 10/25/2020 12:00:00 AM EDT [facility] ([facility] ) [id number] Essential hypertension Essential hypertension Problem 10/25/2020 12:00:00 AM EDT [facility] ([facility]) 372.72 Subconjunctival Hemorrhage Subconjunctival Hemorrhage Problem 02/25/2020 12:00:00 AM EST - 04/19/2020 12:00:00 AM EST [facility] (Drew Hugo MD [facility]) 372.72 Subconjunctival Hemorrhage Subconjunctival Hemorrhage Problem 02/25/2020 12:00:00 AM EST - 04/19/2020 12:00:00 AM EST [facility] (Drew Hugo MD [facility]) 372.72 Subconjunctival Hemorrhage Subconjunctival Hemorrhage Problem 02/25/2020 12:00:00 AM EST - 04/19/2020 12:00:00 AM EST [facility] (Drew Hugo MD [facility]) 372.72 Subconjunctival Hemorrhage Subconjunctival Hemorrhage Problem 02/25/2020 12:00:00 AM EST - 04/19/2020 12:00:00 AM EST [facility] (Drew Hugo MD [facility]) 372.72 Subconjunctival Hemorrhage Subconjunctival Hemorrhage Problem 02/25/2020 12:00:00 AM EST [facility] (Drew Hugo MD [facility]) 372.72 Subconjunctival Hemorrhage Subconjunctival Hemorrhage Problem 02/25/2020 12:00:00 AM EST - 04/19/2020 12:00:00 AM EST [facility] (Drew Hugo MD [facility]) 372.72 Subconjunctival Hemorrhage Subconjunctival Hemorrhage Problem 02/25/2020 12:00:00 AM EST - 04/19/2020 12:00:00 AM EST [facility] (Drew Hugo MD [facility]) Surgeries/Procedures Procedure Description Date Indications Data Source(s) Endoscopy Nasal Diagnostic 02/10/2021 12:00:00 AM EST [facility] ([facility] ) Myringotomy W/ Aspiration/Eustachian Tube Inflate 02/10/2021 12:00:00 AM EST [facility] ([facility]) OFFICE OUTPATIENT NEW 30 MINUTES 02/10/2021 12:00:00 A M EST [facility] ([facility]) ARTHROCENTESIS ASPIR&/INJECTION MAJOR JT/BURSA 021 12:00:00 AM EDT [facility] ([facility]) OFFICE OUTPATIENT VISIT 15 MINUTES 11/09/2020 12:00:00 AM EDT [facility] ([facility]) OFFICE OUTPATIENT NEW 30 MINUTES 10/25/2020 12:00:00 A M EDT [facility] ([facility]) Intermediate Eye Exam Established Patient Intermediate Eye Exam Established Patient 05/18/2020 12:00:00 AM EDT [facility] (Jacob Hugo MD [facility]) Intermediate Eye Exam Established Patient Intermediate Eye Exam Established Patient 05/18/2020 12:00:00 AM EDT [facility] (Jacob Hugo MD [facility]) Intermediate Eye Exam Established Patient Intermediate Eye Exam Established Patient 04/19/2020 12:00:00 AM EST [facility] (Jacob Hugo MD [facility]) Surgical / procedural history : Knee Gamaliel erasmo - 1989, Ankle Surgery, Melanoma removed from the right arm in 2010, Chemo Surgical / procedural history : Knee Surgery - 1989, Ankle Surgery, Melanoma removed from the right arm in 2010, Chemo 02/25/2020 12:00:00 AM EST [facility] (Jacob Hugo MD [facility]) Discission of membranous cataract, secondary (procedur e) 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 Miranda 02/04/19 02/25/2020 12:00:00 AM EST [facility] (Jacob Hugo MD [facility]) Intermediate Eye Exam Established Patient Intermediate Eye Exam Established Patient 02/25/2020 12:00:00 AM EST [facility] (Jacob Hugo MD [facility]) Intermediate Eye Exam Established Patient Intermediate Eye Exam Established Patient 02/25/2020 12:00:00 AM EST [facility] (Jacob Hugo MD [facility]) Results No Information Social History Code Duration Value Status Description Data Source(s ) Smoking 02/03/2021 08:06:41 PM EST Never smoked tobacco (findi ng) completed Never smoked tobacco (finding) [facility] (Drew Hugo MD [facility]) Smoking 01/28/2021 07:57:58 AM EST Never smoked tobacco (findi ng) completed Never smoked tobacco (finding) [facility] (Drew Hugo MD [facility]) Smoking 01/16/2021 01:26:10 PM EST Never smoked tobacco (findi ng) completed Never smoked tobacco (finding) [facility] (Drew Hugo MD [facility]) Smoking 11/14/2020 02:10:32 PM EDT Never smoked tobacco (findi ng) completed Never smoked tobacco (finding) [facility] (Drew Hugo MD [facility]) Smoking 09/30/2020 01:23:23 PM EDT Never smoked tobacco (findi ng) completed Never smoked tobacco (finding) [facility] (Drew Hugo MD [facility]) Smoking 05/18/2020 02:02:00 PM EDT Never smoked tobacco (findi ng) completed Never smoked tobacco (finding) [facility] (Drew Hugo MD [facility]) Smoking 02/25/2020 02:42:41 PM EST Never smoked tobacco (findi ng) completed Never smoked tobacco (finding) [facility] (Drew Hugo MD [facility]) Smoking 01/05/2020 12:00:00 AM EST Patient has never smoked co mpleted Patient has never smoked [facility] ([facility]) Vital Signs ID Date Data Source UNK Name Value Range Interpretation Code Description Data Source(s) Systolic blood pressure 140 mm[Hg] 140 mm[Hg] M [facility] ([facility]) Diastolic blood pressure 90 mm[Hg] 90 mm[Hg] [facility] ([facility]) Heart rate 58 /min 58 /min [facility] ([facility]) Oxygen saturation in Arterial blood by Pulse oximetry 98 % 98 % [facility] ([facility]) Body height 71 [in_i] 71 [in_i] [facility] ([facility]) 5'11" Body weight 201.00 [lb_av] 201.00 [lb_av] MED[facility] T ([facility]) Body mass index (BMI) [Ratio] 28.0 kg/m2 28.0 k g/m2 [facility] ([facility]) [place] body weight 172 [lb_av] 172 [lb_av] [facility] T ([facility]) Body weight 91.174 kg 91.174 kg [facility] ([facility]) Body surface area Derived from formula 2.11 m2 2.11 m2 [facility] ([facility]) Body temperature 97.1 [degF] 97.1 [degF] [facility] ([facility]) Body height 70 [in_i] 70 [in_i] [facility] ([facility]) 5'10" Body weight 203.38 [lb_av] 203.38 [lb_av] [facility] T ([facility]) Body mass index (BMI) [Ratio] 29.2 kg/m2 29.2 k g/m2 [facility] ([facility]) Systolic blood pressure 108 mm[Hg] 108 mm[Hg] M [facility] ([facility]) Diastolic blood pressure 68 mm[Hg] 68 mm[Hg] [facility] ([facility]) Heart rate 70 /min 70 /min [facility] ([facility]) Oxygen saturation in Arterial blood by Pulse oximetry 98 % 98 % [facility] ([facility]) Room Air Body weight 208.00 [lb_av] 208.00 [[facility]_av] [facility] Body mass index (BMI) [Ratio] 29.0 kg/m2 29.0 k g/m2 [facility] ([facility]) Body height 71 [in_i] 71 [in_i] [facility] ([facility]) 5'11" [place] body weight 172 [lb_av] 172 [lb_av] [facility] Body weight 94.349 kg 94.349 kg [facility] ([facility]) Body surface area Derived from formula 2.14 m2 2.14 m2 [facility] ([facility]) Patient Treatment Plan of Care Planned Activity Planned Date Details Description Data Source (s) bimatoprost 0.1 MG/ML Ophthalmic Solution [Lumigan] 12/29/19 12:00:00 AM EDT [facility] (Drew Hugo MD [facility]) Timolol 0.005 MG/MG Ophthalmic Gel 04/19/2020 12:00:00 AM EST [facility] (Drew Hugo MD [facility]) Dexamethasone 1 MG/ML / Tobramycin 3 MG/ML Ophthalmic Suspension [Tobradex] 10/16/2019 12:00:00 AM EDT [facility] (Jacob Hugo MD [facility]) bimatoprost 0.1 MG/ML Ophthalmic Solution [Lumigan] 10/06/19 20 12:00:00 AM EDT [facility] (Drew Hugo MD [facility]) bimatoprost 0.1 MG/ML Ophthalmic Solution [Lumigan] 09/19/19 19 12:00:00 AM EDT [facility] (Drew Hugo MD [facility])
--- NOTE | 2021-02-14 12:39 | REPVR ---
PROCEDURE INFORMATION: Exam: CT Head Without Contrast Exam date and time: 02/14/2021 11:50 AM Age: 80 years old Clinical indication: Injury or trauma; Fall; Blunt trauma (contusions or hematomas); Additional info: Fall, head injury TECHNIQUE: Imaging protocol: Computed tomography of the head without contrast. Radiation optimization: All CT scans at this facility use at least one of these dose optimization techniques: automated exposure control; mA and/or kV adjustment per patient size (includes targeted exams where dose is matched to clinical indication); or iterative reconstruction. COMPARISON: CT Head without contrast 02/01/2021 10:38 AM FINDINGS: Brain: Mild diffuse cortical volume loss. No acute intracranial hemorrhage. No midline shift. Cerebral ventricles: No ventriculomegaly. Paranasal sinuses: Visualized sinuses are unremarkable. No fluid levels. Mastoid air cells: Right mastoid effusion, which has decreased since prior. Bones/joints: No acute fracture. Soft tissues: Unremarkable. IMPRESSION: No acute intracranial abnormality. Electronically signed by: Chichi Levi On 02/14/2021 12:38:34 PM
--- NOTE | 2021-02-14 12:47 | REPVR ---
PROCEDURE INFORMATION: Exam: CT Cervical Spine Without Contrast Exam date and time: 02/14/2021 11:50 AM Age: 80 years old Clinical indication: Injury or trauma; Fall; Blunt trauma; Additional info: Mult. Myeloma, peripheral weakness TECHNIQUE: Imaging protocol: Computed tomography images of the cervical spine without contrast. Radiation optimization: All CT scans at this facility use at least one of these dose optimization techniques: automated exposure control; mA and/or kV adjustment per patient size (includes targeted exams where dose is matched to clinical indication); or iterative reconstruction. COMPARISON: MRI-C SPINE W/O FOLL BY WITH 04/21/2019 10:39 AM FINDINGS: Tubes, catheters and devices: Right internal jugular catheter, incompletely imaged. 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 Multilevel posterior facet joint arthropathy. Several lytic osseous lesions, compatible with known history of multiple myeloma. Chronic C5 vertebral body moderate compression fracture. Multilevel degenerative endplate changes. Osseous fusion of the left C2-C3 and C5-C6 posterior facet joints. Incompletely imaged chronic T2 vertebral body compression fracture. Normal sagittal alignment. Mild dextrocurvature. Discs/Spinal canal/Neural foramina: Multilevel bilateral neural foraminal narrowing. Multilevel disc space narrowing. Mild spinal canal stenosis at C4-C5. Mastoid air cells: Right mastoid effusion. Lungs: Lung apices are normal. Vasculature: Atherosclerotic vascular calcifications. Soft tissues: Unremarkable. IMPRESSION: 1. No acute cervical spine fracture. 2. Multilevel cervical spondylosis. 3. Multiple lytic osseous lesions, compatible with known multiple myeloma. Electronically signed by: Chichi Levi On 02/14/2021 12:47:26 PM
--- NOTE | 2021-02-14 12:51 | REPVR ---
PROCEDURE INFORMATION: Exam: CT Lumbar Spine Without Contrast Exam date and time: 02/14/2021 11:50 AM Age: 80 years old Clinical indication: Injury or trauma; Fall; Blunt trauma (contusions or hematomas); Additional info: Multiple myeloma, peripheral weakness TECHNIQUE: Imaging protocol: Computed tomography images of the lumbar spine without contrast. Radiation optimization: All CT scans at this facility use at least one of these dose optimization techniques: automated exposure control; mA and/or kV adjustment per patient size (includes targeted exams where dose is matched to clinical indication); or iterative reconstruction. COMPARISON: PT PET/CT Whole body 04/16/2019 2:49 PM FINDINGS: Vertebrae: Mild-moderate chronic L1 vertebral body compression deformity. 17.2 mm lytic lesion right L1 pars interarticularis/base of transverse process (series 505, image 10; series 507, image 23). 22 mm lytic focus central L3 vertebral body. Additional smaller L3 vertebral body lytic foci. Inferior right L4 11 mm lytic focus. Mild L2-L3 spondylosis. Anterior superior L4 vertebral body limbus vertebra (chronic endplate herniation). Right T12 vertebral body hemangioma. Right L2 vertebral body hemangioma. Discs/Spinal canal/Neural foramina: Severe right L2-L3 and moderate left L4-L5 degenerative disc disease, with mild levoscoliosis. Kidneys and ureters: Left renal 31 mm benign cyst. Stomach and bowel: Sigmoid colonic diverticula are present without evidence of diverticulitis. 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 Left common iliac artery fusiform aneurysm measuring 2.6 cm. Soft tissues: Unremarkable. IMPRESSION: 1. Degenerative changes as above. 2. No acute lumbar spinal bony injury identified. 3. Multiple lytic foci consistent with the clinical history of multiple myeloma. 4. Left renal benign cyst. No follow-up imaging is recommended. 5. Right common iliac artery fusiform aneurysm, no evidence of rupture. 6. Left common iliac artery fusiform aneurysm, no evidence of rupture. 7. Diverticulosis. COMMENTS: Consistent with the [employer]'s Incidental Findings Committee white paper (J Am Rudi Radiol 2018): Any incidental renal lesion less than 1 cm or classified as too small to characterize, or any incidental cystic renal lesion characterized as simple-appearing, is likely benign. No follow-up imaging is recommended for these lesions per consensus recommendations based on imaging criteria. Electronically signed by: Patrick Cruz On 02/14/2021 12:51:18 PM
--- NOTE | 2021-02-14 12:52 | REP ---
INDICATION: port assessment COMPARISON: 07/04/2018 TECHNIQUE: Portable AP view of the chest FINDINGS: Ojabaz-D-Oifr identified with tip in the SVC. Mediastinum and cardiac silhouette are normal. Lung maza demonstrate stable chronic appearing changes. No acute consolidation, effusion, or pneumothorax. IMPRESSION: Chronic stable changes. No focal consolidation or effusion. <Electronically signed by Chance Schultz > 02/14/21 [id number]
--- NOTE | 2021-02-14 13:02 | REPVR ---
PROCEDURE INFORMATION: Exam: CT Thoracic Spine Without Contrast Exam date and time: 02/14/2021 11:50 AM Age: 80 years old Clinical indication: Injury or trauma; Fall; Blunt trauma (contusions or hematomas); Additional info: Multiple myeloma, peripheral weakness TECHNIQUE: Imaging protocol: Computed tomography images of the thoracic spine without contrast. Radiation optimization: All CT scans at this facility use at least one of these dose optimization techniques: automated exposure control; mA and/or kV adjustment per patient size (includes targeted exams where dose is matched to clinical indication); or iterative reconstruction. COMPARISON: PT PET/CT Whole body 04/16/2019 2:49 PM FINDINGS: Vertebrae: Moderate chronic T2, T4, T6 vertebral body compression deformities. Chronic superior vertebral body endplate herniation T8, chronic inferior vertebral body endplate herniation T9. 8.3 mm lytic focus inferior anterior T11 vertebral body with adjacent sclerosis. 8 mm lytic lesion left lateral pars interarticularis, stable as visualized on prior. No acute fracture. Discs/Spinal canal/Neural foramina: Mild left T11-12 primary facet osteoarthritis. Other bones/joints: Chronic healed posterolateral left 2nd and 3rd, posteromedial left 6th, posterolateral left 8th, posterolateral right 5th and 6th rib fractures. Soft tissues: Unremarkable. IMPRESSION: 1. Small stable lytic foci of consistent with the history of multiple myeloma. 2. Degenerative changes as above. 3. No acute thoracic spinal bony abnormality identified. Electronically signed by: Patrick Cruz On 02/14/2021 13:02:07 PM
[2021-02-14 13:08] LABS: BASO # 0.1 10^3/uL (0.0-0.2); BASO % 1.3 % (0.0-1.0); EOS # 0.8 10^3/uL (0.0-0.5); EOS % 12.9 % (0.0-3.0); HEMATOCRIT 43.9 % (42.0-52.0); HEMOGLOBIN 14.6 g/dl (13.5-17.5); LYMPH # 0.6 10^3/uL (1.5-5.0); LYMPH % 9.4 % (24.0-44.0); MEAN CORPUSCULAR HEMOGLOBIN 31.1 pg (27.0-33.0); MEAN CORPUSCULAR HGB CONC 33.3 g/dl (32.0-36.5); MEAN CORPUSCULAR VOLUME 93.4 fl (80.0-96.0); MONO # 0.8 10^3/uL (0.0-0.8); MONO % 12.4 % (2.0-8.0); NEUTROPHILS # 3.6 10^3/uL (1.5-8.5); NEUTROPHILS % 59.4 % (36.0-66.0); PLATELET COUNT, AUTOMATED 213 10^3/uL (150-450); WHITE BLOOD COUNT 6.1 10^3/uL (4.0-10.0)
[2021-02-14 13:20] LABS: INR 1.52; PROTHROMBIN TIME 18.7 SECONDS (12.7-14.5)
[2021-02-14 13:51] LABS: BLOOD UREA NITROGEN 13 MG/DL (7-18); CALCIUM LEVEL 9.2 MG/DL (8.8-10.2); CARBON DIOXIDE LEVEL 29 MEQ/L (21-32); CHLORIDE LEVEL 103 MEQ/L (98-107); CREATININE FOR GFR 0.73 MG/DL (0.70-1.30); GLOMERULAR FILTRATION RATE > 60.0 (>35); GLUCOSE, FASTING 104 MG/DL (70-100); MAGNESIUM LEVEL 2.2 MG/DL (1.8-2.4); PHOSPHORUS LEVEL 3.9 MG/DL (2.5-4.9); POTASSIUM SERUM 3.9 MEQ/L (3.5-5.1); SODIUM LEVEL 140 MEQ/L (136-145)
[2021-02-14 15:45] LABS: PROTHROMBIN TIME 18.4 SECONDS (12.7-14.5)
[2021-02-14 15:46] LABS: PARTIAL THROMBOPLASTIN TIME 35.2 SECONDS (25.9-37.0)
[2021-02-14 15:49] LABS: PT 1:2 SUBSTITUTION 15.3 SECONDS
[2021-02-14 15:50] LABS: APTT 1:2 SUBSTITUTION 31.6 SECONDS
--- NOTE | 2021-02-14 17:25 | HPEPDOC ---
[facility] Medical History & Physical Date of Admission Feb 14, 2021 Date of Service: Feb 14, 2021 History and Physical CHIEF COMPLAINT: FALLS HISTORY OF PRESENT ILLNESS: 80 year old male for several day history of diarrhea. He also notes a several month history of worsening weakness however over the last week he has had se veral falls. He denies any symptoms before his falls. He denies any head trauma with his falls. On evaluation in the emergency room he denies any complaints. He denies chest pain, shortness of breath, abdominal pain, nausea, vomiting, diarrhea, headaches, changes in vision or depressed mood. PAST MEDICAL HISTORY: #PE/eliquis #Multiple myeloma. #Obesity #obstructive sleep apnea. #Hypertension. # Hyperlipidemia. #Benign prostatic hypertrophy (BPH). #History of melanoma, right forearm SOCIAL HISTORY: Denies nicotine abuse, alcohol abuse, illicit drug use. FAMILY HISTORY: Reviewed and noncontributory ALLERGIES: Please see below. REVIEW OF SYSTEMS: Negative except as per HPI HOME MEDICATIONS: Please see below. PHYSICAL EXAMINATION: Vital Signs: reviewed General: NAD, lying comfortably in bed HEENT: NC/AT, EOMI Neck: supple, no masses Chest: lungs CTA B/L Heart: +S1S2, RRR Abd: soft, NT, ND, +BS Ext: no edema Skin: no rashes MSK: full ROM at large joints Neuro: b/l upper extremity weakness, b/l le weakness Psych: AAOx3 LABORATORY DATA: See below. MICROBIOLOGY: Please see below. A/P: 80 year old male presents for worsening weakness, gait dysfunction and multiple falls, in the setting of chronic anti-coagulation for PE's. #weakness/falls - check MRI/MRA brain head - PT/OT - fall precautions - hold a/c for now (Eliquis for PE) #MM - follows with Dr. Au #history of multiple PE - holding Eliquis for now - may benefit from IVC filter - discussed with vascular - services only available thru Sunday #Obesity - complicates care #obstructive sleep apnea. #Hypertension. - continue enalapril # Hyperlipidemia. - pravastatin #Benign prostatic hypertrophy (BPH). -proscar #History of melanoma, right forearm #DVT prophylaxis - mechanical Vital Signs Vital Signs Date Time Temp Pulse Resp B/P (MAP) Pulse Ox O2 Delivery O2 Flow Rate FiO2 02/14/21 10:43 97.8 60 18 159/72 (101) 98 Room Air Laboratory Data Labs 24H Laboratory Tests 2 02/14/21 11:50: Immature Granulocyte % (Auto) 4.6H, Neutrophils (%) (Auto) 59.4, Lymphocytes (%) (Auto) 9.4L, Monocytes (%) (Auto) 12.4H, Eosinophils (%) (Auto) 12.9H, Basophils (%) (Auto) 1.3H, Neutrophils # (Auto) 3.6, Lymphocytes # (Auto) 0.6L, Monocytes # (Auto) 0.8, Eosinophils # (Auto) 0.8H, Basophils # (Auto) 0.1, Nucleated Red Blood Cells % (auto) 0.0, Anion Gap 8, Glomerular Filtration Rate > 60.0, Calcium Level 9.2, Phosphorus Level 3.9, Magnesium Level 2.2 02/14/21 12:00: Prothrombin Time 18.7H, Prothromb Time International Ratio 1.52, Activated Partial Thromboplast Time 191.0*H 02/14/21 15:02: Prothrombin Time 18.4H, Activated Partial Thromboplast Time 35.2, Mix PT Patient/Normal 1:1 Immediate 15.3, Mix PTT Patient/Normal 1:1 31.6 CBC/BMP Laboratory Tests 02/14/21 11:50 Home Medications Scheduled Acyclovir (Acyclovir) 400 Mg Tablet, 400 MG PO BID Apixaban (Eliquis) 5 Mg Tablet, 5 MG PO BID Bimatoprost (Lumigan) 50 Drop/2.5 Ml Pepper, 1 DROP OD QHS Cetirizine HCl (Cetirizine HCl) 10 Mg Tablet, 10 MG PO QHS TAKES PRIOR TO POMALYST Dexamethasone (Dexamethasone) 4 Mg Tablet, 8 MG PO QWEEK SUNDAY Enalapril Maleate (Enalapril Maleate) 10 Mg Tablet, 10 MG PO QHS Escitalopram Oxalate (Lexapro) 5 Mg Tablet, 5 MG PO DAILY Famotidine (Famotidine) 20 Mg Tablet, 20 MG PO QHS TAKES PRIOR TO POMALYST Finasteride (Finasteride) 5 Mg Tab, 5 MG PO DAILY Pomalidomide (Pomalyst) 1 Mg Capsule, 1 MG PO DAILY Take one capsule daily days 1-21 with 7 days off (days -28) Pravastatin Sodium (Pravastatin Sodium) 80 Mg Tablet, 40 MG PO QHS Timolol Maleate (Timolol Maleate) Unknown Strength Pepper.gel, 1 DROP OD QAM Scheduled PRN Carboxymethylcellulose Sodium (Refresh Tears) 0.5 % Adonis, 1 DROP OU TID PRN for DRY EYES Morphine Sulfate (Morphine Sulfate) 15 Mg Tablet, 1-2 TAB PO Q4HP PRN for pain Olanzapine (Olanzapine) 10 Mg Tablet, 10 MG PO DAILY PRN for SEVERE NAUSEA Ondansetron HCl (Ondansetron HCl) 8 Mg Tablet, 8 MG PO Q6H PRN for NAUSEA OR VOMITING Oxycodone HCl/Acetaminophen (Oxycodone-Acetaminophen 5-325) 1 Each Tablet, 1 TAB PO BIDP PRN for pain Prochlorperazine Maleate (Prochlorperazine Maleate) 10 Mg Tablet, 10 MG PO Q8HP PRN for NAUSEA OR VOMITING Allergies Coded Allergies: pomalidomide (Verified Allergy, Intermediate, rash, 05/31/18) A-FIB/CHADSVASC A-FIB History Current/History of A-Fib/PAF?: No HEAVEN ROBERT MD Feb 14, 2021 17:25
[2021-02-14] MEDS ORDERED: PRAV80TA2 PO (18:02)
[2021-02-14] MEDS ORDERED: CETI-24 PO (18:02)
[2021-02-14] MEDS ORDERED: FAMO1TAB11 PO (18:02)
[2021-02-14] MEDS ORDERED: HOME MED LIST COMPLETE! XX SCH (18:05)
[2021-02-14] MEDS ORDERED: OLANZapine 10 MG TAB PO PRN (20:15)
[2021-02-14] MEDS ORDERED: PROCHLORPERAZINE 5 MG TAB (S0183) PO PRN (20:15)
[2021-02-14 20:40] VITALS: BP 162/92
[2021-02-14] MEDS: FAMOTIDINE 20 MG TAB PO SCH (22:39)
[2021-02-14] MEDS: CETIRIZINE (ZyrTEC) 10 MG TAB PO SCH (22:39)
[2021-02-14] MEDS: PERCOCET 5MG/325MG TAB PO PRN (22:39)
[2021-02-14] MEDS: PRAVASTATIN 20 MG TAB PO SCH (22:39)
[2021-02-14] MEDS: ACYCLOVIR 200 MG CAPSULE PO SCH (23:00)
[2021-02-14] MEDS: ENALAPRIL MALEATE 10 MG TAB PO SCH (23:00)
[2021-02-15] MEDS ORDERED: PERCOCET 5MG/325MG TAB PO ONE (05:35)
[2021-02-15] MEDS: PERCOCET 5MG/325MG TAB PO PRN ×3 (05:48→19:27)
[2021-02-15 05:58] VITALS: BP 153/94
[2021-02-15 08:36] LABS: HEMATOCRIT 41.7 % (42.0-52.0); HEMOGLOBIN 13.9 g/dl (13.5-17.5); MEAN CORPUSCULAR HEMOGLOBIN 31.2 pg (27.0-33.0); MEAN CORPUSCULAR HGB CONC 33.3 g/dl (32.0-36.5); MEAN CORPUSCULAR VOLUME 93.5 fl (80.0-96.0); PLATELET COUNT, AUTOMATED 199 10^3/uL (150-450); RED BLOOD COUNT 4.46 10^6/uL (4.30-6.10); WHITE BLOOD COUNT 5.5 10^3/uL (4.0-10.0)
[2021-02-15] MEDS: FINASTERIDE 5 MG TAB PO SCH (08:37)
[2021-02-15] MEDS: APIXABAN 5 MG TAB (ELIQUIS) PO SCH ×2 (08:37→21:22)
[2021-02-15] MEDS: ACYCLOVIR 200 MG CAPSULE PO SCH ×2 (08:38→21:21)
[2021-02-15] MEDS: ESCITALOPRAM OXALATE 5MG TABLET (LEXAPRO) PO SCH (08:38)
[2021-02-15 09:05] LABS: BLOOD UREA NITROGEN 14 MG/DL (7-18); CALCIUM LEVEL 8.8 MG/DL (8.8-10.2); CARBON DIOXIDE LEVEL 30 MEQ/L (21-32); CHLORIDE LEVEL 105 MEQ/L (98-107); CREATININE FOR GFR 0.78 MG/DL (0.70-1.30); GLOMERULAR FILTRATION RATE > 60.0 (>35); GLUCOSE, FASTING 110 MG/DL (70-100); POTASSIUM SERUM 4.5 MEQ/L (3.5-5.1); SODIUM LEVEL 140 MEQ/L (136-145)
[2021-02-15 14:00] VITALS: BP 152/90
[2021-02-15] MEDS ORDERED: PROHANCE 279.3MG/ML 15ML VIAL As Ordered ONE (15:00)
[2021-02-15] MEDS ORDERED: PROHANCE 279.3MG/ML 5ML VIAL As Ordered ONE (15:00)
--- NOTE | 2021-02-15 16:26 | REPVR ---
PROCEDURE INFORMATION: Exam: MRA Head Without Contrast; Arteriography Exam date and time: 02/15/2021 2:47 PM Age: 80 years old Clinical indication: Weakness; Additional info: Bue weakness TECHNIQUE: Imaging protocol: Magnetic resonance angiography head without contrast. Exam focused on the arteries. COMPARISON: CT Head without contrast 02/14/2021 12:00 PM FINDINGS: Mild cerebral atrophy is present. There is communication between the 4th ventricle and the CSF space posterior to the vermis which may represent a Dandy-Walker variant. ANTERIOR CIRCULATION: Right internal carotid artery: Intracranial segment is patent with no significant stenosis. No aneurysm. Right middle cerebral artery: No occlusion or significant stenosis. No aneurysm. Right anterior cerebral artery: No occlusion or significant stenosis. No aneurysm. Left internal carotid artery: Intracranial segment is patent with no significant stenosis. No aneurysm. Left middle cerebral artery: No occlusion or significant stenosis. No aneurysm. Left anterior cerebral artery: No occlusion or significant stenosis. No aneurysm. POSTERIOR CIRCULATION: Right vertebral artery: No occlusion or significant stenosis. No aneurysm. The distal right vertebral artery shows some loss of signal which could be secondary to slow flow or partial distal arterial stenosis or backflow from the dominant large left vertebral artery, which is likely a normal variant. Left vertebral artery: No occlusion or significant stenosis. No aneurysm. Basilar artery: No occlusion or significant stenosis. No aneurysm. Right posterior cerebral artery: No occlusion or significant stenosis. No aneurysm. Left posterior cerebral artery: No occlusion or significant stenosis. No aneurysm. IMPRESSION: 1. No stenosis or occlusion in the supratentorial intracranial arteries. No large vessel occlusions. 2. The distal right vertebral artery shows some loss of signal which could be secondary to slow flow or partial distal arterial stenosis or backflow from the dominant large left vertebral artery - which is likely a normal variant. 3. Dandy-Walker variant/inferior vermian hypoplasia. Electronically signed by: Efren Crowe On 02/15/2021 16:25:37 PM
--- NOTE | 2021-02-15 17:00 | REPVR ---
PROCEDURE INFORMATION: Exam: MR Head Without and With Contrast Exam date and time: 02/15/2021 3:23 PM Age: 80 years old Clinical indication: Weakness, extremity; Bilateral; Additional info: Bue weakness TECHNIQUE: Imaging protocol: MR of the head without and with intravenous contrast. Contrast material: PROHANCE; Contrast volume: 17 ml; Contrast route: INTRAVENOUS (IV); COMPARISON: CT Head without contrast 02/14/2021 12:00 PM FINDINGS: Brain: No acute intracerebral abnormality or injury. No acute infarct or intracerebral bleed. Mild generalized cerebral atrophy with patchy periventricular leukomalacia in both cerebral hemispheres, consistent most likely with chronic underlying small vessel ischemic disease. The vestibulocochlear complexes bilaterally are normal. Normal base of skull vasculature flow voids. The left vertebral artery is dominant, a normal variant. The mesial temporal lobes and hippocampal regions are normal. A questionable Dandy-Walker variant is present with mild hypoplasia of the inferior vermis. No abnormal leptomeningeal or brain parenchymal enhancement post IV contrast. Cerebral ventricles: Normal. No ventriculomegaly. Bones/joints: Unremarkable. Paranasal sinuses: No acute sinusitis. Mild mucosal thickening is seen in both maxillary sinuses with a small mucosal retention cyst or polyp present in the left maxillary sinus. Mastoid air cells: Mucosal thickening and or fluid accumulation is seen in both mastoid air cells especially marked on the right. Orbital cavity: Unremarkable. Soft tissues: Unremarkable. IMPRESSION: 1. No acute intracerebral abnormality or injury. No acute infarct or intracerebral bleed. 2. Mild generalized cerebral atrophy with patchy periventricular leukomalacia in both cerebral hemispheres, consistent most likely with chronic underlying small vessel ischemic disease. A questionable Dandy-Walker variant is present with mild hypoplasia of the inferior vermis. 3. Mild mucosal thickening is seen in both maxillary sinuses with a small mucosal retention cyst or polyp present in the left maxillary sinus. 4. Mucosal thickening and or fluid accumulation is seen in both mastoid air cells, a especially marked on the right. Electronically signed by: Efren Crowe On 02/15/2021 17:00:04 PM
--- NOTE | 2021-02-15 17:27 | REPVR ---
PROCEDURE INFORMATION: Exam: MR Cervical Spine Without and With Contrast Exam date and time: 02/15/2021 3:23 PM Age: 80 years old Clinical indication: Neck pain; Additional info: Bue weakness TECHNIQUE: Imaging protocol: Multiplanar magnetic resonance images of the cervical spine without and with contrast. Contrast material: PROHANCE; Contrast volume: 17 ml; Contrast route: INTRAVENOUS (IV); COMPARISON: CT Spine,cervical w/o contrast 02/14/2021 12:00 PM FINDINGS: Vertebrae: There is osteolytic partial destruction and collapse of the C5 vertebral body with abnormal marrow edema-like enhancing signal present in the vertebral bodies and posterior spinous processes of C4, C5 and C6, highly likely representing metastatic disease with osteomyelitis thought less likely. Soft tissues: There are abnormal enhancing prevertebral and anterolateral left side epidural soft tissue masses extending from the C3 vertebral body down to the anterior C7 vertebral body, suggestive of soft tissue metastatic disease. No fluid collections within the soft tissue masses to suggest abscess formation. Spinal cord: Normal signal in the cervical cord. No cord compression. The main bulk of the epidural soft tissue mass posteriorly is in the left anterolateral epidural space and left side neural foramina of C3 through C7. C2-C3: No significant disc disease. No significant spinal stenosis. C3-C4: No significant disc disease. No significant spinal stenosis. C4-C5: Diminished disc height. No significant spinal stenosis. C5-C6: Disc collapse is present. Mild spinal stenosis with no cord compression. C6-C7: Diminished disc height. No significant spinal stenosis. C7-T1: No significant disc disease. No significant spinal stenosis. Vertebral arteries: The expected flow voids in the vertebral arteries are present. IMPRESSION: 1. There is osteolytic partial destruction and collapse of the C5 vertebral body with abnormal marrow edema-like enhancing signal present in the vertebral bodies and posterior spinous processes of C4, C5 and C6, highly likely representing metastatic disease, with osteomyelitis thought less likely. 2. There are abnormal enhancing prevertebral and anterolateral left side epidural soft tissue masses extending from the C3 vertebral body down to the anterior C7 vertebral body, suggestive of soft tissue metastatic disease spread. No fluid collections within the soft tissue masses to suggest abscess formation. 3. Normal signal in the cervical cord. No cord compression. The main bulk of the epidural soft tissue mass posteriorly is in the left anterolateral epidural space and left side neural foramina of C3 through C7. Electronically signed by: Efren Crowe On 02/15/2021 17:25:55 PM
[2021-02-15] MEDS ORDERED: dexameTHASONE 20MG/5ML VIAL (J1100 PER 1MG) IV ONE (19:25)
--- NOTE | 2021-02-15 20:33 | CR.PDOC ---
General Date of Consultation: Feb 15, 2021 Attending Physician: JEFFERY LEONARD MD Consultation CHIEF COMPLAINT: FALLS HISTORY OF PRESENT ILLNESS: 80-year-old male admitted falls and upper extremity weakness. Patient states he has recurrent falls. Upper extremity weakness progressing over several months. Patient admitted to medicine for work-up. He is known to have metastatic multiple myeloma. Diagnosed 5 years ago. Undergoing chemotherapy. Consulted by medicine after MRI finding of C5 lytic lesion. Lesion previously seen on CT. Multiple lesions throughout his thoracic and lumbar spine and shoulder blade. MRI shows no signs of cord compression. PAST MEDICAL HISTORY: #PE/eliquis #Multiple myeloma. #Obesity #obstructive sleep apnea. #Hypertension. # Hyperlipidemia. #Benign prostatic hypertrophy (BPH). #History of melanoma, right forearm SOCIAL HISTORY: Denies nicotine abuse, alcohol abuse, illicit drug use. FAMILY HISTORY: Reviewed and noncontributory ALLERGIES: Please see below. REVIEW OF SYSTEMS: Negative except as per HPI HOME MEDICATIONS: Please see below. PHYSICAL EXAMINATION: Vital Signs: Vital signs stable General: NAD, lying comfortably in bed HEENT: Full head control, no pain with range of motion. Neck: supple, no masses, no pain . Bilateral muscle wasting of the shoulder girdles bilaterally. Chest: Breathing comfortably on room air Heart: No chest pain vital signs stable Abd: Soft nontender Ext: no edema Skin: no rashes MSK: Patient alert and oriented Asked to sit up in bed Obvious scapular wasting bilaterally Grade 2 power of shoulder abduction and shoulder flexion bilaterally Grade 3 power right biceps grade 4 power left biceps Grade 4 power right triceps grade 4 - power left triceps Grade - 5 Power flexion extension right wrist grade -5 power of flexion extension left wrist Grade 5 power of figure refinisher and repairer strength bilaterally Patient denies any sensory deficits Unable to elicit reflexes bilaterally, negative Sage's Patient able to move lower extremities. Denies any sensory deficits Neuro: Negative Sage's, negative inverted brachioradialis, no sensory deficits. Denies any bowel or bladder disturbances Psych: AAOx3 LABORATORY DATA: See below. MICROBIOLOGY: Please see below. A/P: 80-year-old male. Known history of multiple myeloma for the last 5 years. Has been treated with chemotherapy. Noted to have multiple lesions throughout his spine and shoulder. Most notably lytic lesion C5 vertebral body. No signs of cord compression. Upper extremity most likely due to polyneuropathy , could be secondary to chemotherapy, or foraminal stenosis within the neck. Periscapular atrophy most likely indicates this is a chronic condition. Unlikely to resolve with surgery. As for the C5 lytic lesion, it is quite extensive, patient denies any neck pain. Discussed at length risk of collapse. Strong indications for surgery would be cord compression or fracture instability causing pain. SINS: 6. Currently does not have any of these. Discussion should be had with his oncologist on the prognosis of his disease and if spine surgery should be considered. Advised the patient if he does fracture could be at risk for cord compression and paralysis. If he develops any further neck /spine pain and/or or neurological deficits. Would recommend repeated imaging and C collar. To monitor for vertebral collapse. May consider C collar and radiation in metastatic recurrence is treated at C5. Vital Signs/I&O Vital Signs Date Time Temp Pulse Resp B/P (MAP) Pulse Ox O2 Delivery O2 Flow Rate FiO2 02/15/21 19:27 18 Room Air 02/15/21 14:00 97.8 67 152/90 (110) 96 I&O- Last 24 Hours up to 6 AM 02/15/21 06:00 Intake Total 240 ml Balance 240 ml Laboratory Data Labs 24H Laboratory Tests 2 02/15/21 08:23: Nucleated Red Blood Cells % (auto) 0.0, Anion Gap 5L, Glomerular Filtration Rate > 60.0, Calcium Level 8.8 CBC/BMP Laboratory Tests 02/15/21 08:23 Allergies Coded Allergies: pomalidomide (Verified Allergy, Intermediate, rash, 05/31/18) Home Medications Scheduled Acyclovir (Acyclovir) 400 Mg Tablet, 400 MG PO BID for 90 Days, #180 Apixaban (Eliquis) 5 Mg Tablet, 5 MG PO BID for 90 Days, #180 Bimatoprost (Lumigan) 50 Drop/2.5 Ml Pepper, 1 DROP OD QHS, (Reported) Cetirizine HCl (Cetirizine HCl) 10 Mg Tablet, 10 MG PO QHS, (Reported) TAKES PRIOR TO POMALYST Dexamethasone (Dexamethasone) 4 Mg Tablet, 8 MG PO QWEEK, (Reported) SUNDAY Enalapril Maleate (Enalapril Maleate) 10 Mg Tablet, 10 MG PO QHS, (Reported) Escitalopram Oxalate (Lexapro) 5 Mg Tablet, 5 MG PO DAILY, (Reported) Famotidine (Famotidine) 20 Mg Tablet, 20 MG PO QHS, (Reported) TAKES PRIOR TO POMALYST Finasteride (Finasteride) 5 Mg Tab, 5 MG PO DAILY, (Reported) Pomalidomide (Pomalyst) 1 Mg Capsule, 1 MG PO DAILY for 28 Days, #21 Take one capsule daily days 1-21 with 7 days off (days 22-28) Pravastatin Sodium (Pravastatin Sodium) 80 Mg Tablet, 40 MG PO QHS, (Reported) Timolol Maleate (Timolol Maleate) Unknown Strength Pepper.gel, 1 DROP OD QAM, (Reported) Scheduled PRN Carboxymethylcellulose Sodium (Refresh Tears) 0.5 % Adonis, 1 DROP OU TID PRN for DRY EYES, (Reported) Morphine Sulfate (Morphine Sulfate) 15 Mg Tablet, 1-2 TAB PO Q4HP PRN for pain, #40 Olanzapine (Olanzapine) 10 Mg Tablet, 10 MG PO DAILY PRN for SEVERE NAUSEA, #30 Ondansetron HCl (Ondansetron HCl) 8 Mg Tablet, 8 MG PO Q6H PRN for NAUSEA OR VOMITING, #30 Oxycodone HCl/Acetaminophen (Oxycodone-Acetaminophen 5-325) 1 Each Tablet, 1 TAB PO BIDP PRN for pain for 30 Days, #60 Prochlorperazine Maleate (Prochlorperazine Maleate) 10 Mg Tablet, 10 MG PO Q8HP PRN for NAUSEA OR VOMITING, #30 JEFFERY LEONARD MD Feb 15, 2021 20:33
--- NOTE | 2021-02-15 21:09 | IPNPDOC ---
Date Seen The patient was seen on 02/15/21. Progress Note SUBJECTIVE: Increased weakness noted in the bilateral upper extremities, sent for MRI of the cervical spine. MRI revealed partial destruction and collapse of vertebral bodies of C5 and edema C4, C5-C6 likely representing metastatic disease. Patient does not have documented metastatic melanoma to the spine. Also noted soft tissue masses extending from C3-C7 suggesting of soft tissue metastatic disease spread. No cord compression. Discussed the case with both orthopedic surgery and radiation oncology who were consulted now. Also prepared to transfer out if needed. Updated both the patient and his family. The patient admits to having cervical pain but denies numbness and tingling, worse in lower extremities weakness, vision changes, lightheadedness or dizziness. OBJECTIVE: PHYSICAL EXAMINATION: Vital Signs: Please see below General: NAD, lying comfortably in bed HEENT: NC/AT, EOMI Neck: supple, no masses, no lymphadenopathy Chest: lungs CTA B/L, no wheezing, rhonchi or rales Heart: +S1S2, RRR, no murmurs, rubs or gallops Abd: soft, NT, ND, +BS, no organomegaly Ext: no edema, cyanosis clubbing Skin: no rashes, open lesions MSK: full ROM at large joints, range of motion not tested of neck Neuro: b/l upper extremity weakness, 3/5 strength right and left upper extremity, symmetrical b/l le weakness and chronic, no focal deficits Psych: AAOx3, mood and affect appropriate LABORATORY DATA: See below. IMAGING: MRI CERVICAL SPINE: 1. There is osteolytic partial destruction and collapse of the C5 vertebral body with abnormal marrow edema-like enhancing signal present in the vertebral bodies and posterior spinous processes of C4, C5 and C6, highly likely representing metastatic disease, with osteomyelitis thought less likely. 2. There are abnormal enhancing prevertebral and anterolateral left side epidural soft tissue masses extending from the C3 vertebral body down to the anterior C7 vertebral body, suggestive of soft tissue metastatic disease spread. No fluid collections within the soft tissue masses to suggest abscess formation. 3. Normal signal in the cervical cord. No cord compression. The main bulk of the epidural soft tissue mass posteriorly is in the left anterolateral epidural space and left side neural foramina of C3 through C7. MRI BRAIN: 1. No stenosis or occlusion in the supratentorial intracranial arteries. No large vessel occlusions. 2. The distal right vertebral artery shows some loss of signal which could be secondary to slow flow or partial distal arterial stenosis or backflow from the dominant large left vertebral artery - which is likely a normal variant. 3. Dandy-Walker variant/inferior vermian hypoplasia. MICROBIOLOGY: Please see below. ASSESSMENT: 80 year old male presents for worsening weakness, gait dysfunction and multiple falls, in the setting of chronic anti-coagulation for PE. PLAN: Bilateral upper extremity weakness likely secondary to cervical spine infiltration of soft tissue mass, multiple myeloma metastatic disease -MRI cervical spine above, acute weakness noted over the past several days -No cord compression noted -Asked for orthopedic surgery and radiation oncology input (known to Dr. Jaramillo, rad onc service) -Discussed with both patient and new diagnosis of metastatic disease to the cervical spine. Once consultation services above have assessed will give options for treatment. -Given 40 mg of Decadron tonight, holding steroid dose for 02/16/2021 -Have also reached out to facilities and have accepting physician Dr. Dinh at [facility] if that is needed. If decision is made to keep her at our facility and treat here, will reach out to that facility and cancel transfer. They are made aware of this plan. 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 Au -Has followed with Dr. Jaramillo in the past. -Follow-up radiation oncology suggestions, holding oral chemotherapy for now until cleared to give History of multiple PE -Discussed risks of continuing Eliquis with the patient given multiple falls -I offered to consult vascular surgery for IVC filter placement if he wished to stop Eliquis. -The patient refused and wished to continue Eliquis despite risks. -Continue with Eliquis Obesity - complicates care Obstructive sleep apnea -Stable on room air Hypertension. - continue enalapril Hyperlipidemia - pravastatin Benign prostatic hypertrophy (BPH) -proscar DVT prophylaxis -Eliquis DISPOSITION: Orthopedic surgery and radiation oncology consulted, follow-up recommendations. Both the patient and his were updated at length about the findings above. I called [facility] to discuss potential transfer, he is currently accepted by , hospitalist who will likely recommend consultation with neurosurgery and oncology if transferred. He will be placed on the board if they were to receive a bed. If the decision is made to keep the patient here and not transfer I will call them and take him off the board there. He remains a full code VS, I&O, 24H, Fishbone Vital Signs/I&O Vital Signs Date Time Temp Pulse Resp B/P (MAP) Pulse Ox O2 Delivery O2 Flow Rate FiO2 02/15/21 19:27 18 Room Air 02/15/21 14:00 97.8 67 152/90 (110) 96 I&O- Last 24 Hours up to 6 AM 02/15/21 06:00 Intake Total 240 ml Balance 240 ml Laboratory Data 24H LABS Laboratory Tests 2 02/15/21 08:23: Nucleated Red Blood Cells % (auto) 0.0, Anion Gap 5L, Glomerular Filtration Rate > 60.0, Calcium Level 8.8 CBC/BMP Laboratory Tests 02/15/21 08:23 Neisha Crowder MD Feb 15, 2021 21:09
[2021-02-15] MEDS: ENALAPRIL MALEATE 10 MG TAB PO SCH (21:22)
[2021-02-15] MEDS: PRAVASTATIN 20 MG TAB PO SCH (21:22)
[2021-02-15] MEDS: CETIRIZINE (ZyrTEC) 10 MG TAB PO SCH (21:22)
[2021-02-15] MEDS: FAMOTIDINE 20 MG TAB PO SCH (21:23)
[2021-02-15 22:00] VITALS: BP 163/98
[2021-02-16] MEDS ORDERED: SODIUM CHLORIDE 0.9% INJ 10 ML SYR IV PRN (02:05)
[2021-02-16 05:45] VITALS: BP 162/90
[2021-02-16 06:51] LABS: HEMATOCRIT 42.2 % (42.0-52.0); HEMOGLOBIN 13.9 g/dl (13.5-17.5); MEAN CORPUSCULAR HEMOGLOBIN 30.6 pg (27.0-33.0); MEAN CORPUSCULAR HGB CONC 32.9 g/dl (32.0-36.5); PLATELET COUNT, AUTOMATED 214 10^3/uL (150-450); RED BLOOD COUNT 4.54 10^6/uL (4.30-6.10)
[2021-02-16 07:13] LABS: ALBUMIN 2.8 GM/DL (3.2-5.2); ALT/SGPT 18 U/L (12-78); BILIRUBIN,TOTAL 0.4 MG/DL (0.2-1.0); BLOOD UREA NITROGEN 23 MG/DL (7-18); CALCIUM LEVEL 8.7 MG/DL (8.8-10.2); CARBON DIOXIDE LEVEL 27 MEQ/L (21-32); CHLORIDE LEVEL 105 MEQ/L (98-107); CREATININE FOR GFR 0.85 MG/DL (0.70-1.30); GLOMERULAR FILTRATION RATE > 60.0 (>35); GLUCOSE, FASTING 176 MG/DL (70-100); POTASSIUM SERUM 4.4 MEQ/L (3.5-5.1); SODIUM LEVEL 138 MEQ/L (136-145); TOTAL PROTEIN 5.4 GM/DL (6.4-8.2)
[2021-02-16] MEDS: ACYCLOVIR 200 MG CAPSULE PO SCH ×2 (08:35→21:30)
[2021-02-16] MEDS: ESCITALOPRAM OXALATE 5MG TABLET (LEXAPRO) PO SCH (08:35)
[2021-02-16] MEDS: FINASTERIDE 5 MG TAB PO SCH (08:35)
[2021-02-16] MEDS: APIXABAN 5 MG TAB (ELIQUIS) PO SCH ×2 (08:35→21:30)
[2021-02-16] MEDS: SODIUM CHLORIDE 0.9% INJ 10 ML SYR IV SCH (08:36)
[2021-02-16] MEDS: dexameTHASONE 20MG/5ML VIAL (J1100 PER 1MG) IV SCH (09:00)
--- NOTE | 2021-02-16 09:56 | RADONC.CN ---
Radiation Oncology Hx/Consult Radiation Oncology Consult Date of Service: Feb 16, 2021 Pt Identifier Silver Serrato is a 80 year old male with a history of multiply relapsed IgA kappa multiple myeloma diagnosed in 2016. He has progressed through 4 myeloma regimens. He received palliative RT to the left scapula 20 Gy in 5 fra ctions 12/22/20-12/28/20. He presented to [facility] with onset of BL UE flexor weakness on 02/14/[address]. [address] and then MRI of the cervical spine which revealed no cord compression but rather nerve root involvement by tumor @ C5-6. He is seen today for consideration of RT to manage this progression of his disease. Diagnosis/Treatment History Oncologic History Diagnosed in 2016 R-ISS stage III IgA kappa multiple myeloma with skeletal involvement RVD 06/2016-10/19 R maintenance 10/19-04/06/17 Xgeva 07/2015-present Relapsed 08/20 IgA 4700 new bone lesions Margarette/Pom/Dex 09/04/17-10/20 Pom stopped for rash, then Margarette/Dex continued to 05/26/19 progression noted CyBorD 06/05/19-04/25 Bortezomib maintenance therapy 04/2020 to 11/2020. Elotuzumab with pomalidomide and dexamethasone started 11/18/2020 Recent data: 02/14/21 CT C spine FINDINGS: Tubes, catheters and devices: Right internal jugular catheter, incompletely imaged. 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 Multilevel posterior facet joint arthropathy. Several lytic osseous lesions, compatible with known history of multiple myeloma. Chronic C5 vertebral body moderate compression fracture. Multilevel degenerative endplate changes. Osseous fusion of the left C2-C3 and C5-C6 posterior facet joints. Incompletely imaged chronic T2 vertebral body compression fracture. Normal sagittal alignment. Mild dextrocurvature. Discs/Spinal canal/Neural foramina: Multilevel bilateral neural foraminal narrowing. Multilevel disc space narrowing. Mild spinal canal stenosis at C4-C5. Mastoid air cells: Right mastoid effusion. Lungs: Lung apices are normal. Vasculature: Atherosclerotic vascular calcifications. Soft tissues: Unremarkable. IMPRESSION: 1. No acute cervical spine fracture. 2. Multilevel cervical spondylosis. 3. Multiple lytic osseous lesions, compatible with known multiple myeloma. 02/15/21 MRI C spine IMPRESSION: 1. There is osteolytic partial destruction and collapse of the C5 vertebral body with abnormal marrow edema-like enhancing signal present in the vertebral bodies and posterior spinous processes of C4, C5 and C6, highly likely representing metastatic disease, with osteomyelitis thought less likely. 2. There are abnormal enhancing prevertebral and anterolateral left side epidural soft tissue masses extending from the C3 vertebral body down to the anterior C7 vertebral body, suggestive of soft tissue metastatic disease spread. No fluid collections within the soft tissue masses to suggest abscess formation. 3. Normal signal in the cervical cord. No cord compression. The main bulk of the epidural soft tissue mass posteriorly is in the left anterolateral epidural space and left side neural foramina of C3 through C7. 02/15/21 MRI brain IMPRESSION: 1. No acute intracerebral abnormality or injury. No acute infarct or intracerebral bleed. 2. Mild generalized cerebral atrophy with patchy periventricular leukomalacia in both cerebral hemispheres, consistent most likely with chronic underlying small vessel ischemic disease. A questionable Dandy-Walker variant is present with mild hypoplasia of the inferior vermis. 3. Mild mucosal thickening is seen in both maxillary sinuses with a small mucosal retention cyst or polyp present in the left maxillary sinus. 4. Mucosal thickening and or fluid accumulation is seen in both mastoid air cells, a especially marked on the right. Interval History Cachorro is in bed this morning recumbent. He reports that his left arm strength is improved this AM. Has full ROM there. He has no improvement in the RUE weakness. He has tingling in his fingers R>L, he has no pain in the neck or arms. He is able to swallow and breath without difficulty. No bowel or bladder dysfunction. His leg strength is preserved, is able to stand with the walker. Past Medical History: Multiple myeloma Obesity and obstructive sleep apnea Hypertension Hyperlipidemia Benign prostatic hypertrophy (BPH) History of melanoma, right forearm Past Surgical History: N/A Family History: N/A Social History: Nonsmoker Does not drink alcohol Allergies / Meds Allergies: Coded Allergies: pomalidomide (Verified Allergy, Intermediate, rash, 05/31/18) Home Meds Active Scripts Acyclovir (Acyclovir) 400 Mg Tablet, 400 MG PO BID for 90 Days, #180 TAB 1 Refill Prov:KAILEE WILKINSON MD FACP 02/14/21 Pomalidomide (Pomalyst) 1 Mg Capsule, 1 MG PO DAILY for 28 Days, #21 CAP Take one capsule daily days 1-21 with 7 days off (days -) Prov:KAILEE WILKINSON MD [facility] 02/08/21 Morphine Sulfate (Morphine Sulfate) 15 Mg Tablet, 1-2 TAB PO Q4HP PRN for pain MDD 4 Tablet(s), #40 TAB Prov:KAILEE WILKINSON MD FACP 11/24/20 Oxycodone HCl/Acetaminophen (Oxycodone-Acetaminophen 5-325) 1 Each Tablet, 1 TAB PO BIDP PRN for pain MDD 2 Tablet(s) for 30 Days, #60 TAB Prov:KAILEE WILKINSON MD [facility] 11/02/20 Prochlorperazine Maleate (Prochlorperazine Maleate) 10 Mg Tablet, 10 MG PO Q8HP PRN for NAUSEA OR VOMITING, #30 TAB 3 Refills Prov:Poppy Mcdowell MD 05/29/19 Olanzapine (Olanzapine) 10 Mg Tablet, 10 MG PO DAILY PRN for SEVERE NAUSEA, #30 TAB 3 Refills Prov:Poppy Mcdowell MD 05/29/19 Ondansetron HCl (Ondansetron HCl) 8 Mg Tablet, 8 MG PO Q6H PRN for NAUSEA OR VOMITING, #30 TAB 3 Refills Prov:Poppy Mcdowell MD 05/29/19 Apixaban (Eliquis) 5 Mg Tablet, 5 MG PO BID for 90 Days, #180 TAB 1 Refill Prov:Poppy Mcdowell MD 02/21/19 Reported Medications Famotidine (Famotidine) 20 Mg Tablet, 20 MG PO QHS TAKES PRIOR TO POMALYST 02/14/21 Cetirizine HCl (Cetirizine HCl) 10 Mg Tablet, 10 MG PO QHS TAKES PRIOR TO POMALYST 02/14/21 Pravastatin Sodium (Pravastatin Sodium) 80 Mg Tablet, 40 MG PO QHS, TAB 02/14/21 Dexamethasone (Dexamethasone) 4 Mg Tablet, 8 MG PO QWEEK Sunday02/14/21 Enalapril Maleate (Enalapril Maleate) 10 Mg Tablet, 10 MG PO QHS 10/01/20 Timolol Maleate (Timolol Maleate) Unknown Strength Hanna.gel, 1 DROP OD QAM 05/19/20 Escitalopram Oxalate (Lexapro) 5 Mg Tablet, 5 MG PO DAILY 08/29/18 Carboxymethylcellulose Sodium (Refresh Tears) 0.5 % Adonis, 1 DROP OU TID PRN for DRY EYES, ADONIS 07/17/16 Bimatoprost (Lumigan) 50 Drop/2.5 Ml Hanna, 1 DROP OD QHS, HANNA 06/09/16 Finasteride (Finasteride) 5 Mg Tab, 5 MG PO DAILY, TAB 06/09/16 Discontinued Reported Medications Amoxicillin/Potassium Clav (Amox-Clav 500-125 mg Tablet) 1 Each Tablet 02/14/21 Pomalidomide (Pomalyst) 2 Mg Capsule 02/14/21 Pravastatin Sodium (Pravastatin Sodium) 80 Mg Tablet 12/02/20 Covid-19 Vacc,Mrna(Moderna)/Pf (Moderna Covid19 Vacc(Unapprov)) 100 Mcg/0.5 Ml Vial, 100 MCG IM, VIAL 06/30/20 Pravastatin Sodium (Pravastatin Sodium) 40 Mg Tab, 40 MG PO QHS, TAB 06/09/16 Discontinued Scripts Amoxicillin/Potassium Clav (Augmentin 500-125 Tablet) 1 Each Tablet, 1 TAB PO BID for 10 Days, #20 TAB Prov:KAILEE WILKINSON MD [facility] 02/01/21 Cetirizine HCl (Cetirizine HCl) 10 Mg Tablet, 10 MG PO DAILY for 30 Days, #60 TAB 1 Refill Prov:KAILEE WILKINSON MD 11/03/20 Famotidine (Famotidine) 20 Mg Tablet, 20 MG PO DAILY for 30 Days, #60 TAB 1 Refill Prov:KAILEE WILKINSON MDP 11/03/20 Lidocaine/Prilocaine (Lidocaine-Prilocaine Cream) 2.5%/2.5% Cream..g., 1 APLCT TOP ASDIRECTED, #30 GRAM 1 Refill Prov:KAILEE WILKINSON MD FACP 10/20/20 Review of Systems Constitutional: Reports: Fatigue, Weight Loss, Normal appetite; Denies: Chills, Fever Eyes: Denies: Pain HEENT: Denies: Head Aches Skin: Denies: Rash Pulmonary: Denies: Dyspnea, Cough Cardiovascular: Denies: Chest Pain Gastrointestinal: Denies: Abdominal Pain Musculoskeletal: Denies: Neck pain, Back pain Neurological: Reports: Weakness, Numbness Psych: Reports: Mood Normal Vital Signs Vital Signs Date Time Temp Pulse Resp B/P (MAP) Pulse Ox O2 Delivery O2 Flow Rate FiO2 02/16/21 05:45 98.0 64 18 162/90 (114) 92 Room Air General Exam: Alert, Cooperative, No Acute Distress Eye Exam: PERRLA, EOMI ENT EXAM: Atraumatic Neck Exam: Supple Skin Exam: Nl turgor and temperature; Negative: Rash Neuro Exam: Normal Speech, Cranial Nerves 3-12 NL Psych Exam: Mental status NL, Mood NL Other Physical Findings RUE arm flexion 2/5 RUE extensors 4/5 RUE fingers/strategic marketing specialist 5/5 LUE arm flexion 4/5 LUE extensors 5/5 LUE fingers/strategic marketing specialist 5/5 Diagnostic and Laboratory Diagnostic Review Radiologic images, relevant labs and pathology reports were personally reviewed and discussed with Mr. Serrato. Laboratory Tests 02/14/21 11:50 02/15/21 08:23 02/16/21 06:22 Laboratory Tests 02/14/21 11:50: White Blood Count 6.1, Red Blood Count 4.70, Hemoglobin 14.6, Hematocrit 43.9, Mean Corpuscular Volume 93.4, Mean Corpuscular Hemoglobin 31.1, Mean Corpuscular Hemoglobin Concent 33.3, Red Cell Distribution Width 14.9H, Platelet Count 213, Immature Granulocyte % (Auto) 4.6H, Neutrophils (%) (Auto) 59.4, Lymphocytes (%) (Auto) 9.4L, Monocytes (%) (Auto) 12.4H, Eosinophils (%) (Auto) 12.9H, Basophils (%) (Auto) 1.3H, Neutrophils # (Auto) 3.6, Lymphocytes # (Auto) 0.6L, Monocytes # (Auto) 0.8, Eosinophils # (Auto) 0.8H, Basophils # (Auto) 0.1, Nucleated Red Blood Cells % (auto) 0.0, Sodium Level 140, Potassium Level 3.9, Chloride Level 103, Carbon Dioxide Level 29, Anion Gap 8, Blood Urea Nitrogen 13, Creatinine 0.73, Glomerular Filtration Rate > 60.0, Fasting Glucose 104H, Calcium Level 9.2, Phosphorus Level 3.9, Magnesium Level 2.2 02/14/21 12:00: Prothrombin Time 18.7H, Prothromb Time International Ratio 1.52, Activated Partial Thromboplast Time 191.0*H 02/14/21 15:02: Prothrombin Time 18.4H, Activated Partial Thromboplast Time 35.2, Mix PT Patient/Normal 1:1 Immediate 15.3, Mix PTT Patient/Normal 1:1 31.6 02/14/21 17:29: Urine Color YELLOW, Urine Appearance CLEAR, Urine pH 6.0, Urine Specific Underwood 1.006, Urine Protein 2+H, Urine Glucose (UA) NEGATIVE, Urine Ketones NEGATIVE, Urine Blood NEGATIVE, Urine Nitrite NEGATIVE, Urine Bilirubin NEGATIVE, Urine Urobilinogen 0.2, Urine Leukocyte Esterase NEGATIVE, Urine WBC (Auto) 1, Urine RBC (Auto) 0, Urine Hyaline Casts (Auto) 0, Urine Bacteria (Auto) NEGATIVE, Urine Squamous Epithelial Cells 0, Urine Sperm (Auto) 02/14/21 17:30: Coronavirus (COVID-19)(PCR) NEGATIVE 02/15/21 08:23: White Blood Count 5.5, Red Blood Count 4.46, Hemoglobin 13.9, Hematocrit 41.7L, Mean Corpuscular Volume 93.5, Mean Corpuscular Hemoglobin 31.2, Mean Corpuscular Hemoglobin Concent 33.3, Red Cell Distribution Width 14.8H, Platelet Count 199, Nucleated Red Blood Cells % (auto) 0.0, Sodium Level 140, Potassium Level 4.5, Chloride Level 105, Carbon Dioxide Level 30, Anion Gap 5L, Blood Urea Nitrogen 14, Creatinine 0.78, Glomerular Filtration Rate > 60.0, Fasting Glucose 110H, Calcium Level 8.8 02/16/21 06:22: White Blood Count 4.0, Red Blood Count 4.54, Hemoglobin 13.9, Hematocrit 42.2, Mean Corpuscular Volume 93.0, Mean Corpuscular Hemoglobin 30.6, Mean Corpuscular Hemoglobin Concent 32.9, Red Cell Distribution Width 14.9H, Platelet Count 214, Nucleated Red Blood Cells % (auto) 0.0, Sodium Level 138, Potassium Level 4.4, Chloride Level 105, Carbon Dioxide Level 27, Anion Gap 6L, Blood Urea Nitrogen 23#H, Creatinine 0.85, Glomerular Filtration Rate > 60.0, Fasting Glucose 176H, Calcium Level 8.7L, Total Bilirubin 0.4, Aspartate Amino Transf (AST/SGOT) 11, Alanine Aminotransferase (ALT/SGPT) 18, Alkaline Phosphatase 83, Total Protein 5.4L, Albumin 2.8L, Albumin/Globulin Ratio 1.1 Assessment and Plan Impression Mr. Serrato is a 80 year old male with a history of multiply relapsed IgA kappa multiple myeloma diagnosed in 2017. He has progressed through 4 myeloma regimens. He received palliative RT to the left scapula 20 Gy in 5 fractions 12/22/20-12/28/20. He presented to [facility] with onset of BL UE flexor weakness on 02/14/21. [address] and then MRI of the cervical spine which revealed no cord compression but rather nerve root involvement by tumor @ C5-6. He is seen today for consideration of RT to manage this progression of his disease. Stage R-ISS stage III IgA kappa MM Performance Status ECOG 3 Plan We had an extensive discussion with Mr. Serrato regarding the diagnosis at hand and available therapeutic options. He has epidural and nerve root infiltration of myeloma at the C5-6 levels p articularly, and from C3-7 the vertebral bodies are much involved with MM lesions. The flexor deficits in the BL UE (R>L) correlate well with the lesions present. I agree with Drs. Crowder and Garrett that in the absence of pain and cord compression there is little rationale for proceeding with any surgical intervention in an 80 yo patient with multiple relapsed MM. Rather, I think he would be best served with continued aggressive steroids and palliative RT. For decadron I recommend 3 additional days of 40 mg decadron. I also recommend resuming his home pomalyst per his current cycle and to this I would add clarithromycin 500 mg BID for 7 days (Kamlesh et al. Adv Blood 2019), this would reconstitute a brief highly active regimen which may further hasten regression of the myeloma cells once we initiate RT. Upon completion of this pulse of therapy and RT, he can follow up with Dr. Wilkinson to discuss the next line of systemic therapy. For RT I will give 30 Gy in 10 fractions with opposed lateral maza. Simulation will commence today and treatment will follow later in the afternoon today or early tomorrow AM. I expect he will be able to make a full functional recovery upon completion of RT with adequate PT/OT support. I called his An and updated her of the plan and she is in agreement. We discussed the logistics of receiving radiation therapy in detail including t he need for a 1-time planning session. We reviewed the side effects expected, fatigue, skin redness, and mild odynophagia. After discussing the risks, benefits and alternatives to radiation therapy, Mr. Serrato was amenable to pursuing radiotherapy. All questions were answered to the patient's satisfaction. We instructed the patient that if there were any questions,concerns or changes in clinical status in the interim to contact us. Recommendations Do not think surgery would benefit the patient in this scenario RT to the cervical spine 30 Gy in 10 fractions Simulation today 1st treatment this afternoon or tomorrow AM Please continue decadron 40 mg PO for 3 additional days, then stop Please give clarithromycin 500 mg PO BID for 7 days then stop (Kamlesh et al Blood Adv 2019) Can restart home pomalyst to complete cycle PT/OT eval I will follow closely upon discharge Billing Statement Total time of [52] minutes was spent preparing for the visit [5], obtaining HPI [8], examining the patient [5], reviewing diagnostic tests [5], discussing manag ement options [10], coordinating care [10], and writing this note [9]. OZZY SILVEIRA MD Feb 16, 2021 09:55
[2021-02-16 14:00] VITALS: BP 128/94
[2021-02-16] MEDS: CLARITHROMYCIN 250 MG TAB PO SCH (18:45)
--- NOTE | 2021-02-16 19:02 | IPNPDOC ---
Date Seen The patient was seen on 02/16/21. 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 Left upper extremity flexion is also weak. Starting radiation today. Patient has no acute events over the evening, denies neck pain or increased weakness of the upper extremities. Denies chest pain, shortness of breath. OBJECTIVE: PHYSICAL EXAMINATION: Vital Signs: Please see below General: NAD, lying comfortably in bed HEENT: NC/AT, EOMI Neck: supple, no masses, no lymphadenopathy Chest: lungs CTA B/L, no wheezing, rhonchi or rales Heart: +S1S2, RRR, no murmurs, rubs or gallops Abd: soft, NT, ND, +BS, no organomegaly Ext: no edema, cyanosis clubbing Skin: no rashes, open lesions MSK: full ROM at large joints, range of motion not tested of neck Neuro: b/l upper extremity weakness, 2-3/5 arm flexion strength, 45 right upper extremity extension. 5/5 strength of all other extremities. No new focal deficits Psych: AAOx3, mood and affect appropriate LABORATORY DATA: See below. IMAGING: MRI CERVICAL SPINE: 1. There is osteolytic partial destruction and collapse of the C5 vertebral body with abnormal marrow edema-like enhancing signal present in the vertebral bodies and posterior spinous processes of C4, C5 and C6, highly likely representing metastatic disease, with osteomyelitis thought less likely. 2. There are abnormal enhancing prevertebral and anterolateral left side epidural soft tissue masses extending from the C3 vertebral body down to the anterior C7 vertebral body, suggestive of soft tissue metastatic disease spread. No fluid collections within the soft tissue masses to suggest abscess formation. 3. Normal signal in the cervical cord. No cord compression. The main bulk of the epidural soft tissue mass posteriorly is in the left anterolateral epidural space and left side neural foramina of C3 through C7. MRI BRAIN: 1. No stenosis or occlusion in the supratentorial intracranial arteries. No large vessel occlusions. 2. The distal right vertebral artery shows some loss of signal which could be secondary to slow flow or partial distal arterial stenosis or backflow from the dominant large left vertebral artery - which is likely a normal variant. 3. Dandy-Walker variant/inferior vermian hypoplasia. MICROBIOLOGY: Please see below. ASSESSMENT: 80 year old male presents for worsening weakness, gait dysfunction and multiple falls, in the setting of chronic anti-coagulation for PE. 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 -Discussed the case in detail with both orthopedic surgery (Dr. Codey Cisse) and radiation oncology (known to Dr. Jaramillo) -No cord compression noted, and because of this little rationale in proceeding with surgery at this time. -Decision was made to start palliative RT and continue dexamethasone 40 mg IV x3 additional days. After these days are completed can resume Decadron 8 mg p.o. weekly as he was before. 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 Au -Has followed with Dr. Jaramillo in the past. -Resuming oral chemotherapy today, starting palliative RT, steroids. History of multiple PE -Discussed risks of continuing Eliquis with the patient given multiple falls -I offered to consult vascular surgery for IVC filter placement if he wished to stop Eliquis. -The patient refused and wished to continue Eliquis despite risks. -Continue with Eliquis Obesity - complicates care Obstructive sleep apnea -Stable on room air Hypertension. - continue enalapril Hyperlipidemia - pravastatin Benign prostatic hypertrophy (BPH) -proscar DVT prophylaxis -Eliquis DISPOSITION: Orthopedic surgery and radiation oncology consulted, please see official notes. VS, I&O, 24H, Fishbone Vital Signs/I&O Vital Signs Date Time Temp Pulse Resp B/P (MAP) Pulse Ox O2 Delivery O2 Flow Rate FiO2 02/16/21 14:00 98.2 80 16 128/94 (105) 95 02/16/21 05:45 Room Air I&O- Last 24 Hours up to 6 AM 02/16/21 06:00 Intake Total 400 ml Balance 400 ml Laboratory Data 24H LABS Laboratory Tests 2 02/16/21 06:22: Nucleated Red Blood Cells % (auto) 0.0, Anion Gap 6L, Glomerular Filtration Rate > 60.0, Calcium Level 8.7L, Total Bilirubin 0.4, Aspartate Amino Transf (AST/SGOT) 11, Alanine Aminotransferase (ALT/SGPT) 18, Alkaline Phosphatase 83, Total Protein 5.4L, Albumin 2.8L, Albumin/Globulin Ratio 1.1 CBC/BMP Laboratory Tests 02/16/21 06:22 Neisha Crowder MD Feb 16, 2021 19:02
[2021-02-16] MEDS: PRAVASTATIN 20 MG TAB PO SCH (21:30)
[2021-02-16] MEDS: ENALAPRIL MALEATE 10 MG TAB PO SCH (21:30)
[2021-02-16] MEDS: FAMOTIDINE 20 MG TAB PO SCH (21:30)
[2021-02-16] MEDS: CETIRIZINE (ZyrTEC) 10 MG TAB PO SCH (21:30)
[2021-02-16 22:00] VITALS: BP 146/66
[2021-02-17 06:00] VITALS: BP 160/89
[2021-02-17 06:13] LABS: HEMATOCRIT 40.7 % (42.0-52.0); HEMOGLOBIN 13.5 g/dl (13.5-17.5); MEAN CORPUSCULAR HEMOGLOBIN 30.8 pg (27.0-33.0); MEAN CORPUSCULAR HGB CONC 33.2 g/dl (32.0-36.5); MEAN CORPUSCULAR VOLUME 92.9 fl (80.0-96.0); PLATELET COUNT, AUTOMATED 207 10^3/uL (150-450); RED BLOOD COUNT 4.38 10^6/uL (4.30-6.10); WHITE BLOOD COUNT 9.2 10^3/uL (4.0-10.0)
[2021-02-17 06:34] LABS: ALBUMIN 2.8 GM/DL (3.2-5.2); ALT/SGPT 21 U/L (12-78); BILIRUBIN,TOTAL 0.4 MG/DL (0.2-1.0); BLOOD UREA NITROGEN 33 MG/DL (7-18); CALCIUM LEVEL 8.7 MG/DL (8.8-10.2); CARBON DIOXIDE LEVEL 25 MEQ/L (21-32); CHLORIDE LEVEL 106 MEQ/L (98-107); CREATININE FOR GFR 0.86 MG/DL (0.70-1.30); GLOMERULAR FILTRATION RATE > 60.0 (>35); GLUCOSE, FASTING 133 MG/DL (70-100); POTASSIUM SERUM 4.3 MEQ/L (3.5-5.1); SODIUM LEVEL 137 MEQ/L (136-145); TOTAL PROTEIN 5.9 GM/DL (6.4-8.2)
[2021-02-17] MEDS ORDERED: POMALIDOMIDE 1 MG PO SCH (09:00)
[2021-02-17] MEDS: ESCITALOPRAM OXALATE 5MG TABLET (LEXAPRO) PO SCH (09:55)
[2021-02-17] MEDS: APIXABAN 5 MG TAB (ELIQUIS) PO SCH ×2 (09:56→21:19)
[2021-02-17] MEDS: FINASTERIDE 5 MG TAB PO SCH (09:56)
[2021-02-17] MEDS: CLARITHROMYCIN 250 MG TAB PO SCH ×2 (09:59→21:18)
[2021-02-17] MEDS: ACYCLOVIR 200 MG CAPSULE PO SCH ×2 (10:02→21:19)
[2021-02-17] MEDS: amLODIPine 5 MG TAB PO SCH (10:06)
[2021-02-17] MEDS: dexameTHASONE 20MG/5ML VIAL (J1100 PER 1MG) IV SCH ×2 (10:07→11:00)
[2021-02-17] MEDS: SODIUM CHLORIDE 0.9% INJ 10 ML SYR IV SCH (10:08)
--- NOTE | 2021-02-17 11:14 | RADENCPD ---
Date/Time of Encounter Date of Encounter: Feb 17, 2021 Time of Encounter: 11:13 Encounter First RT fraction given to C spine Dose: 3 Gy / 30 Gy OZZY SILVEIRA MD Feb 17, 2021 11:14
[2021-02-17 15:10] VITALS: BP 160/89
--- NOTE | 2021-02-17 17:19 | IPNPDOC ---
Date Seen The patient was seen on 02/17/21. Progress Note SUBJECTIVE: First dose of radiation therapy received 02/16/2021, patient tolerated procedure well. Improved flexor strength of bilateral upper extremities this a.m. no other acute events overnight, no acute complaints. OBJECTIVE: PHYSICAL EXAMINATION: Vital Signs: Please see below General: NAD, lying comfortably in bed HEENT: NC/AT, EOMI Neck: supple, no masses, no lymphadenopathy Chest: lungs CTA B/L, no wheezing, rhonchi or rales Heart: +S1S2, RRR, no murmurs, rubs or gallops Abd: soft, NT, ND, +BS, no organomegaly Ext: no edema, cyanosis clubbing Skin: no rashes, open lesions MSK: full ROM at large joints, range of motion not tested of neck Neuro: b/l upper extremity weakness, 3/5 arm flexion strength, 4/5 right upper extremity extension. 5/5 strength of all other extremities. No new focal deficits Psych: AAOx3, mood and affect appropriate LABORATORY DATA: See below. IMAGING: MRI CERVICAL SPINE: 1. There is osteolytic partial destruction and collapse of the C5 vertebral body with abnormal marrow edema-like enhancing signal present in the vertebral bodies and posterior spinous processes of C4, C5 and C6, highly likely representing metastatic disease, with osteomyelitis thought less likely. 2. There are abnormal enhancing prevertebral and anterolateral left side epidural soft tissue masses extending from the C3 vertebral body down to the anterior C7 vertebral body, suggestive of soft tissue metastatic disease spread. No fluid collections within the soft tissue masses to suggest abscess formation. 3. Normal signal in the cervical cord. No cord compression. The main bulk of the epidural soft tissue mass posteriorly is in the left anterolateral epidural space and left side neural foramina of C3 through C7. MRI BRAIN: 1. No stenosis or occlusion in the supratentorial intracranial arteries. No large vessel occlusions. 2. The distal right vertebral artery shows some loss of signal which could be secondary to slow flow or partial distal arterial stenosis or backflow from the dominant large left vertebral artery - which is likely a normal variant. 3. Dandy-Walker variant/inferior vermian hypoplasia. MICROBIOLOGY: Please see below. ASSESSMENT: 80 year old male presents for worsening weakness, gait dysfunction and multiple falls, in the setting of chronic anti-coagulation for PE. 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 -Discussed the case in detail with both orthopedic surgery (Dr. Codey Cisse) and radiation oncology (known to Dr. Jaramillo) -No cord compression noted, and because of this little rationale in proceeding with surgery at this time. -Resumed chemotherapy. Continue with palliative RT and dexamethasone 40 mg IV x2 additional days. After these days are completed can resume Decadron 8 mg p.o. weekly as he was before. 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 Au -Has followed with Dr. Jaramillo in the past. -Resuming oral chemotherapy today, starting palliative RT, steroids. History of multiple PE -Discussed risks of continuing Eliquis with the patient given multiple falls -I offered to consult vascular surgery for IVC filter placement if he wished to stop Eliquis. -The patient refused and wished to continue Eliquis despite risks. -Continue with Eliquis Obesity - complicates care Obstructive sleep apnea -Stable on room air Hypertension. - continue enalapril Hyperlipidemia - pravastatin Benign prostatic hypertrophy (BPH) -proscar DVT prophylaxis -Eliquis NOTE: Due to weakness, neurological deficits above with debilitation caused by active malignancy please acknowledge that the below is needed: Wheelchair 1) The beneficiary has a mobility limitation that significantly impairs their ability to participate in one or more mobility related activities of daily living (MRADL) such as toileting, feeding dressing, grooming and bathing in [facility] locations in the home. A mobility limitation is one that: a) Prevents them from accomplishing an MRADL entirely b) Places the beneficiary at reasonably determined heightened risk of morbidity or mortality secondary to the attempts to perform an MRADL c) Prevents the beneficiary from completing an MRADL within a reasonable time frame 2) The beneficiary's mobility limitation cannot be sufficiently resolved by the use of an appropriate fitted cane or walker 3) Their home provides adequate access between rooms, maneuvering space and surface for use of the manual wheelchair that is provided 4) Use of manual wheelchair will significantly improve the beneficiary's ability to participate in MRADLs and they will use it on a regular basis in the home 5) The beneficiary has not expressed unwillingness to use the manual wheelchair that is provided in the home. 6) They have a caregiver who is available, willing and able to provide assistance with the wheelchair Hospital Bed 1. The beneficiary has a medical condition which requires positioning of the bodily in ways not feasible with an ordinary bed. Elevation of the head/upper body less than 30 degrees, does not usually require the use of a hospital bed, or 2. The beneficiary requires positioning of the body in ways not feasible within normal urinary bed in order to alleviate pain, or 3. Beneficiary requires the head of bed to be elevated more than 30 degrees and most of the time due to congestive heart failure, chronic pulmonary disease, or problems with aspiration, or 4. The beneficiary requires traction equipment, which can only be attached to a hospital bed. AND The beneficiary requires frequent changes in body position and/or has any immediate need for a change in body position DISPOSITION: Radiation oncology following closely, please see official notes. PT- goal is home when medically improved. VS, I&O, 24H, Fishbone Vital Signs/I&O Vital Signs Date Time Temp Pulse Resp B/P (MAP) Pulse Ox O2 Delivery O2 Flow Rate FiO2 02/17/21 15:10 98.5 98 20 160/89 (112) 94 Room Air I&O- Last 24 Hours up to 6 AM 02/17/21 06:00 Intake Total 960 ml Balance 960 ml Laboratory Data 24H LABS Laboratory Tests 2 02/17/21 05:58: Nucleated Red Blood Cells % (auto) 0.0, Anion Gap 6L, Glomerular Filtration Rate > 60.0, Calcium Level 8.7L, Total Bilirubin 0.4, Aspartate Amino Transf (AST/SGOT) 25, Alanine Aminotransferase (ALT/SGPT) 21, Alkaline Phosphatase 68, Total Protein 5.9L, Albumin 2.8L, Albumin/Globulin Ratio 0.9 CBC/BMP Laboratory Tests 02/17/21 05:58 Neisha Crowder MD Feb 17, 2021 17:19
[2021-02-17] MEDS: FAMOTIDINE 20 MG TAB PO SCH (19:54)
[2021-02-17] MEDS: CETIRIZINE (ZyrTEC) 10 MG TAB PO SCH (19:54)
[2021-02-17] MEDS: POMALIDOMIDE 1 MG PO SCH (21:18)
[2021-02-17] MEDS: PRAVASTATIN 20 MG TAB PO SCH (21:18)
[2021-02-17] MEDS: ENALAPRIL MALEATE 10 MG TAB PO SCH (21:18)
[2021-02-17 22:00] VITALS: BP 141/84
[2021-02-18 05:29] VITALS: BP 143/94
[2021-02-18 06:18] LABS: HEMATOCRIT 40.5 % (42.0-52.0); HEMOGLOBIN 13.5 g/dl (13.5-17.5); MEAN CORPUSCULAR HEMOGLOBIN 30.7 pg (27.0-33.0); MEAN CORPUSCULAR HGB CONC 33.3 g/dl (32.0-36.5); PLATELET COUNT, AUTOMATED 218 10^3/uL (150-450); WHITE BLOOD COUNT 5.9 10^3/uL (4.0-10.0)
[2021-02-18 06:41] LABS: ALBUMIN 3.1 GM/DL (3.2-5.2); ALT/SGPT 26 U/L (12-78); BILIRUBIN,TOTAL 0.9 MG/DL (0.2-1.0); BLOOD UREA NITROGEN 31 MG/DL (7-18); CALCIUM LEVEL 8.4 MG/DL (8.8-10.2); CARBON DIOXIDE LEVEL 26 MEQ/L (21-32); CHLORIDE LEVEL 105 MEQ/L (98-107); CREATININE FOR GFR 0.79 MG/DL (0.70-1.30); GLOMERULAR FILTRATION RATE > 60.0 (>35); GLUCOSE, FASTING 158 MG/DL (70-100); POTASSIUM SERUM 4.2 MEQ/L (3.5-5.1); SODIUM LEVEL 138 MEQ/L (136-145); TOTAL PROTEIN 5.5 GM/DL (6.4-8.2)
[2021-02-18] MEDS: ESCITALOPRAM OXALATE 5MG TABLET (LEXAPRO) PO SCH (09:24)
[2021-02-18] MEDS: CLARITHROMYCIN 250 MG TAB PO SCH ×2 (09:24→21:36)
[2021-02-18] MEDS: FINASTERIDE 5 MG TAB PO SCH (09:24)
[2021-02-18] MEDS: APIXABAN 5 MG TAB (ELIQUIS) PO SCH ×2 (09:24→21:37)
[2021-02-18] MEDS: amLODIPine 5 MG TAB PO SCH (09:25)
[2021-02-18] MEDS: ACYCLOVIR 200 MG CAPSULE PO SCH ×2 (09:25→21:36)
[2021-02-18] MEDS: SODIUM CHLORIDE 0.9% INJ 10 ML SYR IV SCH (09:26)
--- NOTE | 2021-02-18 13:12 | IPNPDOC ---
Date Seen The patient was seen on 02/18/21. Progress Note SUBJECTIVE: First dose of radiation therapy received 02/16/2021, patient tolerated procedure well. Improved flexor strength of bilateral upper extremities this a.m. no other acute events overnight, no acute complaints. OBJECTIVE: PHYSICAL EXAMINATION: Vital Signs: Please see below General: NAD, lying comfortably in bed HEENT: NC/AT, EOMI Neck: supple, no masses, no lymphadenopathy Chest: lungs CTA B/L, no wheezing, rhonchi or rales Heart: +S1S2, RRR, no murmurs, rubs or gallops Abd: soft, NT, ND, +BS, no organomegaly Ext: no edema, cyanosis clubbing Skin: no rashes, open lesions MSK: full ROM at large joints, range of motion not tested of neck Neuro: b/l upper extremity weakness, 3/5 arm flexion strength, 4/5 right upper extremity extension. 5/5 strength of all other extremities. No new focal deficits Psych: AAOx3, mood and affect appropriate LABORATORY DATA: See below. IMAGING: MRI CERVICAL SPINE: 1. There is osteolytic partial destruction and collapse of the C5 vertebral body with abnormal marrow edema-like enhancing signal present in the vertebral bodies and posterior spinous processes of C4, C5 and C6, highly likely representing metastatic disease, with osteomyelitis thought less likely. 2. There are abnormal enhancing prevertebral and anterolateral left side epidural soft tissue masses extending from the C3 vertebral body down to the anterior C7 vertebral body, suggestive of soft tissue metastatic disease spread. No fluid collections within the soft tissue masses to suggest abscess formation. 3. Normal signal in the cervical cord. No cord compression. The main bulk of the epidural soft tissue mass posteriorly is in the left anterolateral epidural space and left side neural foramina of C3 through C7. MRI BRAIN: 1. No stenosis or occlusion in the supratentorial intracranial arteries. No large vessel occlusions. 2. The distal right vertebral artery shows some loss of signal which could be secondary to slow flow or partial distal arterial stenosis or backflow from the dominant large left vertebral artery - which is likely a normal variant. 3. Dandy-Walker variant/inferior vermian hypoplasia. MICROBIOLOGY: Please see below. ASSESSMENT: 80 year old male presents for worsening weakness, gait dysfunction and multiple falls, in the setting of chronic anti-coagulation for PE. 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 -Discussed the case in detail with both orthopedic surgery (Dr. Codey Cisse) and radiation oncology (known to Dr. Jaramillo) -No cord compression noted, and because of this little rationale in proceeding with surgery at this time. -Resumed chemotherapy. Continue with palliative RT and dexamethasone 40 mg IV x1 additional days. After these days are completed can resume Decadron 8 mg p.o. weekly as he was before. 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 Au -Has followed with Dr. Jaramillo in the past. -Oral chemotherapy, palliative RT, steroids. History of multiple PE -Discussed risks of continuing Eliquis with the patient given multiple falls -I offered to consult vascular surgery for IVC filter placement if he wished to stop Eliquis. -The patient refused and wished to continue Eliquis despite risks. -Continue with Eliquis Hx of shingles -C/w prophylactic acyclovir Obesity - complicates care Obstructive sleep apnea -Stable on room air Hypertension. - continue enalapril Hyperlipidemia - pravastatin Benign prostatic hypertrophy (BPH) -proscar DVT prophylaxis -Eliquis DISPOSITION: Radiation oncology following closely. PT: cleared for home. D/c home after RT on 02/21/21. VS, I&O, 24H, Fishbone Vital Signs/I&O Vital Signs Date Time Temp Pulse Resp B/P (MAP) Pulse Ox O2 Delivery O2 Flow Rate FiO2 02/18/21 09:25 66 143/94 02/18/21 05:29 97.1 18 95 Room Air I&O- Last 24 Hours up to 6 AM 02/18/21 05:59 Intake Total 590 ml Balance 590 ml Laboratory Data 24H LABS Laboratory Tests 2 02/18/21 05:27: Nucleated Red Blood Cells % (auto) 0.0, Anion Gap 7L, Glomerular Filtration Rate > 60.0, Calcium Level 8.4L, Total Bilirubin 0.9#, Aspartate Amino Transf (AST/SGOT) 17, Alanine Aminotransferase (ALT/SGPT) 26, Alkaline Phosphatase 69, Total Protein 5.5L, Albumin 3.1L, Albumin/Globulin Ratio 1.3 CBC/BMP Laboratory Tests 02/18/21 05:27 Neisha Crowder MD Feb 18, 2021 13:12
[2021-02-18 14:00] VITALS: BP 131/77
[2021-02-18] MEDS: POMALIDOMIDE 1 MG PO SCH (21:35)
[2021-02-18] MEDS: PRAVASTATIN 20 MG TAB PO SCH (21:36)
[2021-02-18] MEDS: ENALAPRIL MALEATE 10 MG TAB PO SCH (21:37)
[2021-02-18] MEDS: FAMOTIDINE 20 MG TAB PO SCH (21:37)
[2021-02-18] MEDS: CETIRIZINE (ZyrTEC) 10 MG TAB PO SCH (21:37)
[2021-02-18 22:00] VITALS: BP 154/86
[2021-02-19 06:00] VITALS: BP 153/86
[2021-02-19 07:41] LABS: ALBUMIN 2.9 GM/DL (3.2-5.2); ALT/SGPT 26 U/L (12-78); BILIRUBIN,TOTAL 0.7 MG/DL (0.2-1.0); BLOOD UREA NITROGEN 38 MG/DL (7-18); CALCIUM LEVEL 7.7 MG/DL (8.8-10.2); CARBON DIOXIDE LEVEL 21 MEQ/L (21-32); CHLORIDE LEVEL 109 MEQ/L (98-107); CREATININE FOR GFR 0.66 MG/DL (0.70-1.30); GLOMERULAR FILTRATION RATE > 60.0 (>35); GLUCOSE, FASTING 136 MG/DL (70-100); POTASSIUM SERUM 4.5 MEQ/L (3.5-5.1); SODIUM LEVEL 140 MEQ/L (136-145); TOTAL PROTEIN 5.4 GM/DL (6.4-8.2)
[2021-02-19] MEDS: SODIUM CHLORIDE 0.9% INJ 10 ML SYR IV SCH (10:05)
[2021-02-19] MEDS: ACYCLOVIR 200 MG CAPSULE PO SCH ×2 (10:05→20:24)
[2021-02-19] MEDS: APIXABAN 5 MG TAB (ELIQUIS) PO SCH ×2 (10:06→20:23)
[2021-02-19] MEDS: FINASTERIDE 5 MG TAB PO SCH (10:06)
[2021-02-19] MEDS: CLARITHROMYCIN 250 MG TAB PO SCH ×2 (10:06→20:24)
[2021-02-19] MEDS: ENALAPRIL MALEATE 10 MG TAB PO SCH ×2 (10:07→20:23)
[2021-02-19] MEDS: ESCITALOPRAM OXALATE 5MG TABLET (LEXAPRO) PO SCH (10:19)
[2021-02-19 14:00] VITALS: BP 139/75
[2021-02-19] MEDS: FAMOTIDINE 20 MG TAB PO SCH (20:23)
[2021-02-19] MEDS: PRAVASTATIN 20 MG TAB PO SCH (20:24)
[2021-02-19] MEDS: PERCOCET 5MG/325MG TAB PO PRN (20:24)
[2021-02-19] MEDS: CETIRIZINE (ZyrTEC) 10 MG TAB PO SCH (20:24)
[2021-02-19] MEDS: POMALIDOMIDE 1 MG PO SCH (20:25)
[2021-02-19 22:00] VITALS: BP 142/81
[2021-02-20 06:00] VITALS: BP 184/101
[2021-02-20 08:00] LABS: HEMOGLOBIN 13.7 g/dl (13.5-17.5); MEAN CORPUSCULAR HGB CONC 33.4 g/dl (32.0-36.5); MEAN CORPUSCULAR VOLUME 92.8 fl (80.0-96.0); PLATELET COUNT, AUTOMATED 221 10^3/uL (150-450); RED BLOOD COUNT 4.42 10^6/uL (4.30-6.10); WHITE BLOOD COUNT 9.8 10^3/uL (4.0-10.0)
[2021-02-20 08:26] LABS: ALT/SGPT 30 U/L (12-78); BILIRUBIN,TOTAL 0.9 MG/DL (0.2-1.0); BLOOD UREA NITROGEN 34 MG/DL (7-18); CALCIUM LEVEL 8.1 MG/DL (8.8-10.2); CARBON DIOXIDE LEVEL 25 MEQ/L (21-32); CHLORIDE LEVEL 105 MEQ/L (98-107); GLOMERULAR FILTRATION RATE > 60.0 (>35); GLUCOSE, FASTING 116 MG/DL (70-100); POTASSIUM SERUM 3.9 MEQ/L (3.5-5.1); SODIUM LEVEL 138 MEQ/L (136-145); TOTAL PROTEIN 5.7 GM/DL (6.4-8.2)
[2021-02-20] MEDS: ACYCLOVIR 200 MG CAPSULE PO SCH ×2 (09:11→20:26)
[2021-02-20] MEDS: SODIUM CHLORIDE 0.9% INJ 10 ML SYR IV SCH (09:11)
[2021-02-20] MEDS: FINASTERIDE 5 MG TAB PO SCH (09:11)
[2021-02-20] MEDS: CLARITHROMYCIN 250 MG TAB PO SCH ×2 (09:12→20:26)
[2021-02-20] MEDS: APIXABAN 5 MG TAB (ELIQUIS) PO SCH ×2 (09:13→20:26)
[2021-02-20] MEDS: ESCITALOPRAM OXALATE 5MG TABLET (LEXAPRO) PO SCH (09:13)
--- NOTE | 2021-02-20 11:58 | IPNPDOC ---
Date Seen The patient was seen on 02/20/21. Progress Note SUBJECTIVE: Increased weakness of the right upper extremity compared to 02/19/2021. No other deficits. No acute complaints overnight. OBJECTIVE: PHYSICAL EXAMINATION: Vital Signs: Please see below General: NAD, lying comfortably in bed HEENT: NC/AT, EOMI Neck: supple, no masses, no lymphadenopathy Chest: lungs CTA B/L, no wheezing, rhonchi or rales Heart: +S1S2, RRR, no murmurs, rubs or gallops Abd: soft, NT, ND, +BS, no organomegaly Ext: no edema, cyanosis clubbing Skin: no rashes, open lesions MSK: full ROM at large joints, range of motion not tested of neck Neuro: b/l upper extremity weakness with 2/5 arm flexion strength right upper extremity, 4/5 right upper extremity extension. 5/5 strength of all other extremities. No new focal deficits Psych: AAOx3, mood and affect appropriate LABORATORY DATA: See below. IMAGING: MRI CERVICAL SPINE: 1. There is osteolytic partial destruction and collapse of the C5 vertebral body with abnormal marrow edema-like enhancing signal present in the vertebral bodies and posterior spinous processes of C4, C5 and C6, highly likely representing metastatic disease, with osteomyelitis thought less likely. 2. There are abnormal enhancing prevertebral and anterolateral left side epidural soft tissue masses extending from the C3 vertebral body down to the anterior C7 vertebral body, suggestive of soft tissue metastatic disease spread. No fluid collections within the soft tissue masses to suggest abscess formation. 3. Normal signal in the cervical cord. No cord compression. The main bulk of the epidural soft tissue mass posteriorly is in the left anterolateral epidural space and left side neural foramina of C3 through C7. MRI BRAIN: 1. No stenosis or occlusion in the supratentorial intracranial arteries. No large vessel occlusions. 2. The distal right vertebral artery shows some loss of signal which could be secondary to slow flow or partial distal arterial stenosis or backflow from the dominant large left vertebral artery - which is likely a normal variant. 3. Dandy-Walker variant/inferior vermian hypoplasia. MICROBIOLOGY: Please see below. ASSESSMENT: 80 year old male presents for worsening weakness, gait dysfunction and multiple falls, in the setting of chronic anti-coagulation for PE. 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 All other extremities are similar to 02/19/2021 -Discussed the case in detail with both orthopedic surgery (Dr. Codey Cisse) and radiation oncology (known to Dr. Jaramillo) -No cord compression noted, and because of this little rationale in proceeding with surgery at this time. -Resumed chemotherapy. Completed dexamethasone IV 40 mg x4 days. Plan is to continue with palliative RT, to get dose again on 02/21/2021. He should resume Decadron 8 mg p.o. weekly as he was before 02/23/2021. Also showed complete clarithromycin x7 days -Hospital bed and wheelchair to be delivered to the home over this weekend -PT/OT: cleared for home after weekend Generalized weakness status post falls -Multifactorial 2/2 to metastatic disease, neurological issues above -Daily improvements of bilateral upper extremity strength -MRI brain above, on chemotherapy with advancement of multiple myeloma to spine -Admits to overall decreased appetite -Fall precautions -PT/OT: cleared for home -Optimize nutritionally HTN, uncontrolled -Likely 2/2 to steroid use, likely holding on to more fluid than previously -2 gm sodium diet -C/w amlodipine, ACEi, giving one dose of lasix 20 mg IV today 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 Au -Has followed with Dr. Jaramillo in the past. -Oral chemotherapy, palliative RT, steroids. History of multiple PE -Discussed risks of continuing Eliquis with the patient given multiple falls -I offered to consult vascular surgery for IVC filter placement if he wished to stop Eliquis. -The patient refused and wished to continue Eliquis despite risks. -Continue with Eliquis Hx of shingles -C/w prophylactic acyclovir Obesity - complicates care Obstructive sleep apnea -Stable on room air Hyperlipidemia - pravastatin Benign prostatic hypertrophy (BPH) -proscar DVT prophylaxis -Eliquis DISPOSITION: Radiation oncology following closely and will continue to follow with the patient after discharge on 02/21/2021. PT: cleared for home. D/c home after RT on 02/21/21. VS, I&O, 24H, Fishbone Vital Signs/I&O Vital Signs Date Time Temp Pulse Resp B/P (MAP) Pulse Ox O2 Delivery O2 Flow Rate FiO2 12/19/21 09:12 58 184/101 02/20/21 06:00 97.3 18 97 Room Air I&O- Last 24 Hours up to 6 AM 02/20/21 06:00 Intake Total 970 ml Output Total 0 ml Balance 970 ml Laboratory Data 24H LABS Laboratory Tests 2 02/20/21 07:15: Nucleated Red Blood Cells % (auto) 0.0, Anion Gap 8, Glomerular Filtration Rate > 60.0, Calcium Level 8.1L, Total Bilirubin 0.9, Aspartate Amino Transf (AST/SGOT) 13, Alanine Aminotransferase (ALT/SGPT) 30, Alkaline Phosphatase 68, Total Protein 5.7L, Albumin 3.0L, Albumin/Globulin Ratio 1.1 CBC/BMP Laboratory Tests 02/20/21 07:15 Neisha Crowder MD Feb 20, 2021 11:58
[2021-02-20] MEDS ORDERED: FUROSEMIDE 20MG/2ML VIAL (J1940) IV ONE (13:00)
[2021-02-20 14:00] VITALS: BP 152/93
[2021-02-20] MEDS ORDERED: AMLO1TAB25 PO (16:58)
[2021-02-20] MEDS ORDERED: CLAR250T22 PO (16:59)
[2021-02-20] MEDS: PRAVASTATIN 20 MG TAB PO SCH (20:26)
[2021-02-20] MEDS: FAMOTIDINE 20 MG TAB PO SCH (20:26)
[2021-02-20] MEDS: POMALIDOMIDE 1 MG PO SCH (20:26)
[2021-02-20] MEDS: CETIRIZINE (ZyrTEC) 10 MG TAB PO SCH (20:26)
[2021-02-20] MEDS: ENALAPRIL MALEATE 10 MG TAB PO SCH (20:31)
[2021-02-20 22:00] VITALS: BP 143/88
[2021-02-21 06:00] VITALS: BP 140/81
[2021-02-21 06:42] LABS: HEMATOCRIT 40.6 % (42.0-52.0); HEMOGLOBIN 13.7 g/dl (13.5-17.5); MEAN CORPUSCULAR HEMOGLOBIN 31.1 pg (27.0-33.0); MEAN CORPUSCULAR HGB CONC 33.7 g/dl (32.0-36.5); MEAN CORPUSCULAR VOLUME 92.3 fl (80.0-96.0); PLATELET COUNT, AUTOMATED 205 10^3/uL (150-450); WHITE BLOOD COUNT 8.2 10^3/uL (4.0-10.0)
[2021-02-21 07:20] LABS: ALBUMIN 2.8 GM/DL (3.2-5.2); ALT/SGPT 29 U/L (12-78); BILIRUBIN,TOTAL 0.9 MG/DL (0.2-1.0); BLOOD UREA NITROGEN 34 MG/DL (7-18); CALCIUM LEVEL 8.2 MG/DL (8.8-10.2); CARBON DIOXIDE LEVEL 29 MEQ/L (21-32); CHLORIDE LEVEL 105 MEQ/L (98-107); CREATININE FOR GFR 0.72 MG/DL (0.70-1.30); GLOMERULAR FILTRATION RATE > 60.0 (>35); GLUCOSE, FASTING 100 MG/DL (70-100); POTASSIUM SERUM 3.7 MEQ/L (3.5-5.1); SODIUM LEVEL 138 MEQ/L (136-145); TOTAL PROTEIN 5.6 GM/DL (6.4-8.2)
[2021-02-21] MEDS: SODIUM CHLORIDE 0.9% INJ 10 ML SYR IV SCH (10:30)
[2021-02-21 10:50] VITALS: BP 140/81
[2021-02-21] MEDS: ACYCLOVIR 200 MG CAPSULE PO SCH (10:50)
[2021-02-21] MEDS: APIXABAN 5 MG TAB (ELIQUIS) PO SCH (10:50)
[2021-02-21] MEDS: ESCITALOPRAM OXALATE 5MG TABLET (LEXAPRO) PO SCH (10:50)
[2021-02-21] MEDS: CLARITHROMYCIN 250 MG TAB PO SCH (10:50)
[2021-02-21] MEDS: FINASTERIDE 5 MG TAB PO SCH (10:51)
--- NOTE | 2021-02-21 17:59 | DS.PDOC ---
Discharge Summary General Date of Admission Feb 14, 2021 at 17:13 Date of Discharge 02/21/2021 Attending Physician: Neisha Crowder MD Discharge Summary PROCEDURES PERFORMED DURING STAY: None ADMITTING DIAGNOSES: Bilateral upper extremity weakness Generalized weakness status post falls HTN, uncontrolled Metastatic multiple myeloma to the spine History of multiple PE Hx of shingles Obesity Obstructive sleep apnea Hyperlipidemia Benign prostatic hypertrophy (BPH) DISCHARGE DIAGNOSES: Bilateral upper extremity weakness likely secondary to cervical spine infiltration of soft tissue mass, multiple myeloma metastatic disease Generalized weakness status post falls multifactorial 2/2 to metastatic disease, neurological issues above HTN, uncontrolled Metastatic multiple myeloma to the spine History of multiple PE Hx of shingles Obesity Obstructive sleep apnea Hyperlipidemia Benign prostatic hypertrophy (BPH) COMPLICATIONS/CHIEF COMPLAINT: Multiple Myeloma C90.02. HISTORY OF PRESENT ILLNESS: 80 year old male for several day history of diarrhea. He also notes a several month history of worsening weakness however over the last week he has had several falls. He denies any symptoms before his falls. He denies any head trauma with his falls. HOSPITAL COURSE: On evaluation in the emergency room he denies any complaints. He denies chest pain, shortness of breath, abdominal pain, nausea, vomiting, diarrhea, headaches, changes in vision or depressed mood. Bilateral upper extremity weakness likely secondary to cervical spine infiltration of soft tissue mass, multiple myeloma metastatic disease -Metastatic disease new diagnosis -Slight worsening of right upper extremity magnetic prospector, flexor strength All other extremities are similar to 02/19/2021. Denies cervical pain -Discussed the case in detail with both orthopedic surgery (Dr. Codey Cisse) and radiation oncology (known to Dr. Jaramillo) -No cord compression noted, and because of this little rationale in proceeding with surgery at this time. Please see ortho note. -C/w chemotherapy. Completed dexamethasone IV 40 mg x4 days. Plan is to continue with palliative RT as outpatient, received 02/21/2021 prior to discharge. He should resume Decadron 8 mg p.o. weekly as he was before 02/23/2021. Also showed complete clarithromycin x7 days -Hospital bed and wheelchair to be delivered to the home over this weekend -PT/OT as o/p Generalized weakness status post falls -Multifactorial 2/2 to metastatic disease, neurological issues above - improvements of bilateral upper extremity strength since admission -MRI brain above, on chemotherapy with advancement of multiple myeloma to spine -Admits to overall decreased appetite -Fall precautions -PT/OT: cleared for home HTN, uncontrolled -Likely 2/2 to steroid use, likely holding on to more fluid than previously -2 gm sodium diet -S/p lasix dose 02/20/21 -C/w amlodipine, ACEi 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 Au -Has followed with Dr. Jaramillo in the past. -Oral chemotherapy, palliative RT, steroids. History of multiple PE -Discussed risks of continuing Eliquis with the patient given multiple falls -I offered to consult vascular surgery for IVC filter placement if he wished to stop Eliquis. -The patient refused and wished to continue Eliquis despite risks. -Continue with Eliquis Hx of shingles -C/w prophylactic acyclovir Obesity - complicates care Obstructive sleep apnea -Stable on room air Hyperlipidemia - pravastatin Benign prostatic hypertrophy (BPH) -proscar DVT px Eliquis DISCHARGE MEDICATIONS: Please see below. ALLERGIES: Please see below. PHYSICAL EXAMINATION ON DISCHARGE: Vital Signs: Please see below General: NAD, lying comfortably in bed HEENT: NC/AT, EOMI Neck: supple, no masses, no lymphadenopathy Chest: lungs CTA B/L, no wheezing, rhonchi or rales Heart: +S1S2, RRR, no murmurs, rubs or gallops Abd: soft, NT, ND, +BS, no organomegaly Ext: no edema, cyanosis clubbing Skin: no rashes, open lesions MSK: full ROM at large joints, range of motion not tested of neck Neuro: b/l upper extremity weakness with 2/5 arm flexion strength right upper extremity, 4/5 right upper extremity extension. 5/5 strength of all other extremities. No new focal deficits Psych: AAOx3, mood and affect appropriate LABORATORY DATA: See below. IMAGING: MRI CERVICAL SPINE: 1. There is osteolytic partial destruction and collapse of the C5 vertebral body with abnormal marrow edema-like enhancing signal present in the vertebral bodies and posterior spinous processes of C4, C5 and C6, highly likely representing metastatic disease, with osteomyelitis thought less likely. 2. There are abnormal enhancing prevertebral and anterolateral left side epidural soft tissue masses extending from the C3 vertebral body down to the anterior C7 vertebral body, suggestive of soft tissue metastatic disease spread. No fluid collections within the soft tissue masses to suggest abscess formation. 3. Normal signal in the cervical cord. No cord compression. The main bulk of the epidural soft tissue mass posteriorly is in the left anterolateral epidural space and left side neural foramina of C3 through C7. MRI BRAIN: 1. No stenosis or occlusion in the supratentorial intracranial arteries. No large vessel occlusions. 2. The distal right vertebral artery shows some loss of signal which could be secondary to slow flow or partial distal arterial stenosis or backflow from the dominant large left vertebral artery - which is likely a normal variant. 3. Dandy-Walker variant/inferior vermian hypoplasia. ACTIVITY: As tolerated DIET: 2 gm sodium DISCHARGE PLAN: DISPOSITION: Home, Self-Care. DISCHARGE INSTRUCTIONS / ITEMS TO FOLLOWUP ON ON OUTPATIENT: 1. Please note new medications. 2. follow up with Dr. Jaramillo after discharged as planned. 3. If you should have increased upper extremity weakness, neck pain, increased numbness/tingling of upper extremities please let a medical professional know immediately. DISCHARGE CONDITION: Stable TIME SPENT ON DISCHARGE: minutes. Vital Signs/I&Os Vital Signs Date Time Temp Pulse Resp B/P (MAP) Pulse Ox O2 Delivery O2 Flow Rate FiO2 02/21/21 10:50 58 140/81 02/21/21 06:00 98.5 18 93 Room Air I&O- Last 24 Hours up to 6 AM 02/21/21 06:00 Intake Total 700 ml Balance 700 ml Laboratory Data Labs 24H Laboratory Tests 2 02/21/21 06:06: Nucleated Red Blood Cells % (auto) 0.0, Anion Gap 4L, Glomerular Filtration Rate > 60.0, Calcium Level 8.2L, Total Bilirubin 0.9, Aspartate Amino Transf (AST/SGOT) 23, Alanine Aminotransferase (ALT/SGPT) 29, Alkaline Phosphatase 60, Total Protein 5.6L, Albumin 2.8L, Albumin/Globulin Ratio 1.0 CBC/BMP Laboratory Tests 02/21/21 06:06 Discharge Medications Scheduled Acyclovir (Acyclovir) 400 Mg Tablet, 400 MG PO BID Amlodipine Besylate (Amlodipine Besylate) 10 Mg Tablet, 10 MG PO DAILY Apixaban (Eliquis) 5 Mg Tablet, 5 MG PO BID Bimatoprost (Lumigan) 50 Drop/2.5 Ml Pepper, 1 DROP OD QHS, (Reported) Cetirizine HCl (Cetirizine HCl) 10 Mg Tablet, 10 MG PO QHS, (Reported) TAKES PRIOR TO POMALYST Clarithromycin (Clarithromycin) 250 Mg Tablet, 250 MG PO BID Dexamethasone (Dexamethasone) 4 Mg Tablet, 8 MG PO QWEEK, (Reported) SUNDAY Enalapril Maleate (Enalapril Maleate) 10 Mg Tablet, 10 MG PO QHS, (Reported) Escitalopram Oxalate (Lexapro) 5 Mg Tablet, 5 MG PO DAILY, (Reported) Famotidine (Famotidine) 20 Mg Tablet, 20 MG PO QHS, (Reported) TAKES PRIOR TO POMALYST Finasteride (Finasteride) 5 Mg Tab, 5 MG PO DAILY, (Reported) Pomalidomide (Pomalyst) 1 Mg Capsule, 1 MG PO DAILY Take one capsule daily days 1-21 with 7 days off (days -) Pravastatin Sodium (Pravastatin Sodium) 80 Mg Tablet, 40 MG PO QHS, (Reported) Timolol Maleate (Timolol Maleate) Unknown Strength Pepper.gel, 1 DROP OD QAM, (Reported) Scheduled PRN Carboxymethylcellulose Sodium (Refresh Tears) 0.5 % Adonis, 1 DROP OU TID PRN for DRY EYES, (Reported) Morphine Sulfate (Morphine Sulfate) 15 Mg Tablet, 1-2 TAB PO Q4HP PRN for pain Olanzapine (Olanzapine) 10 Mg Tablet, 10 MG PO DAILY PRN for SEVERE NAUSEA Ondansetron HCl (Ondansetron HCl) 8 Mg Tablet, 8 MG PO Q6H PRN for NAUSEA OR VOMITING Oxycodone HCl/Acetaminophen (Oxycodone-Acetaminophen 5-325) 1 Each Tablet, 1 TAB PO BIDP PRN for pain Prochlorperazine Maleate (Prochlorperazine Maleate) 10 Mg Tablet, 10 MG PO Q8HP PRN for NAUSEA OR VOMITING Allergies Coded Allergies: pomalidomide (Verified Allergy, Intermediate, rash, 05/31/18) Neisha Crowder MD Feb 21, 2021 17:58
== END 2021-02-21 12:10 | disposition home health service (06) | DRG 841 ==
LOC: M ED 10:43 → M ED INP 17:13 → ENRESERV 19:19 → M MS5PR 20:40
PROVIDERS: ADMIT Internal Medicine; ATTEND Internal Medicine
DX: C90.00 Multiple myeloma not having achieved remission (principal); C79.51 Secondary malignant neoplasm of bone; R29.6 Repeated falls; R53.1 Weakness; E66.9 Obesity, unspecified; G47.33 Obstructive sleep apnea (adult) (pediatric); I10 Essential (primary) hypertension; E78.5 Hyperlipidemia, unspecified; N40.0 Benign prostatic hyperplasia without lower urinary tract symptoms; Z86.711 Personal history of pulmonary embolism; Z79.899 Other long term (current) drug therapy; Z88.8 Allergy status to other drugs, medicaments and biological substances

== ENCOUNTER 2021-03-03 13:07 | Outpatient (RCR) | payer MEDICARE, OTHER ==
[~2021-03-03 13:07] MED LIST changes: +AMLO1TAB25 PO; +AMOX500T2; +CLAR250T22 PO; +MAGICMW PO; +POMA2CAP; +PRAV80TA2 PO
[2021-03-03] MEDS ORDERED: POMA1CAP PO (13:46)
[2021-03-05] MEDS ORDERED: PRAV40TA2 PO (19:22)
[2021-03-05] MEDS ORDERED: TIMO0.5S39 OU (19:23)
== END 2021-03-04 ==
LOC: M ONCR 13:07
PROVIDERS: ATTEND General Practice
DX: C90.02 Multiple myeloma in relapse (principal)

== ENCOUNTER 2021-03-05 12:04 | Inpatient (IN) | payer MEDICARE, OTHER ==
[~2021-03-05] VITALS: Ht 177.8 cm; Wt 84.8 kg
[2021-03-05] MEDS ORDERED: SODIUM CHLORIDE 0.9% INJ 10 ML SYR IV PRN (14:20)
[2021-03-05] MEDS ORDERED: NS 1,000 ML IV ONE (14:20)
[2021-03-05 15:36] LABS: BASO % 0.7 % (0.0-1.0); EOS # 0.2 10^3/uL (0.0-0.5); EOS % 3.3 % (0.0-3.0); HEMATOCRIT 42.5 % (42.0-52.0); HEMOGLOBIN 13.8 g/dl (13.5-17.5); LYMPH # 0.4 10^3/uL (1.5-5.0); LYMPH % 6.5 % (24.0-44.0); MEAN CORPUSCULAR HEMOGLOBIN 30.8 pg (27.0-33.0); MEAN CORPUSCULAR HGB CONC 32.5 g/dl (32.0-36.5); MEAN CORPUSCULAR VOLUME 94.9 fl (80.0-96.0); MONO # 0.8 10^3/uL (0.0-0.8); MONO % 14.8 % (2.0-8.0); NEUTROPHILS % 73.8 % (36.0-66.0); PLATELET COUNT, AUTOMATED 156 10^3/uL (150-450); RED BLOOD COUNT 4.48 10^6/uL (4.30-6.10); WHITE BLOOD COUNT 5.4 10^3/uL (4.0-10.0)
[2021-03-05 16:04] LABS: BLOOD UREA NITROGEN 15 MG/DL (7-18); CALCIUM LEVEL 8.2 MG/DL (8.8-10.2); CARBON DIOXIDE LEVEL 25 MEQ/L (21-32); CHLORIDE LEVEL 107 MEQ/L (98-107); CREATININE FOR GFR 0.75 MG/DL (0.70-1.30); GLOMERULAR FILTRATION RATE > 60.0 (>35); GLUCOSE, FASTING 100 MG/DL (70-100); POTASSIUM SERUM 3.9 MEQ/L (3.5-5.1); SODIUM LEVEL 142 MEQ/L (136-145)
[2021-03-05] MEDS ORDERED: MORPHINE SULFATE ORAL SOLN 10 MG/5 ML UD SL PRN (17:40)
[2021-03-05] MEDS ORDERED: POLYVINYL ALCOHOL OPHTH SOLN 15 ML(LIQUITEARS) OU PRN (17:50)
[2021-03-05] MEDS: D5W/0.9% SODIUM CHLORIDE 1,000 ML IV SCH (18:18)
[2021-03-05] MEDS ORDERED: PRAV40TA2 PO (19:22)
[2021-03-05] MEDS ORDERED: TIMO0.5S39 OU (19:23)
[2021-03-05] MEDS ORDERED: HOME MED LIST COMPLETE! XX SCH (19:25)
[2021-03-05 21:35] VITALS: BP 162/98
[2021-03-05] MEDS: dexameTHASONE 4 MG/ML 1ML VIAL (J1100 PER 1MG) IV SCH (22:29)
[2021-03-05] MEDS: NYSTATIN 500,000 U/5 ML SUSP UDC SS SCH (22:32)
[2021-03-05] MEDS: PANTOPRAZOLE 40MG VIAL (C9113 PER 1) IV SCH (22:34)
[2021-03-05] MEDS: ENOXAPARIN 80MG/0.8ML SYRINGE (J1650 PER 10MG) SC SCH (22:39)
[2021-03-05] MEDS: CLOTRIMAZOLE 1% TOPICAL CREAM 30GM TOP SCH (22:44)
[2021-03-06 06:00] VITALS: BP 138/87
[2021-03-06] MEDS: D5W/0.9% SODIUM CHLORIDE 1,000 ML IV SCH ×2 (06:01→17:53)
[2021-03-06 07:57] LABS: HEMATOCRIT 38.1 % (42.0-52.0); HEMOGLOBIN 12.4 g/dl (13.5-17.5); MEAN CORPUSCULAR HEMOGLOBIN 30.8 pg (27.0-33.0); MEAN CORPUSCULAR HGB CONC 32.5 g/dl (32.0-36.5); MEAN CORPUSCULAR VOLUME 94.8 fl (80.0-96.0); PLATELET COUNT, AUTOMATED 138 10^3/uL (150-450); RED BLOOD COUNT 4.02 10^6/uL (4.30-6.10); WHITE BLOOD COUNT 2.5 10^3/uL (4.0-10.0)
[2021-03-06 08:25] LABS: ALBUMIN 2.6 GM/DL (3.2-5.2); ALT/SGPT 23 U/L (12-78); BILIRUBIN,TOTAL 0.4 MG/DL (0.2-1.0); BLOOD UREA NITROGEN 12 MG/DL (7-18); CALCIUM LEVEL 7.3 MG/DL (8.8-10.2); CARBON DIOXIDE LEVEL 25 MEQ/L (21-32); CHLORIDE LEVEL 111 MEQ/L (98-107); GLOMERULAR FILTRATION RATE > 60.0 (>35); GLUCOSE, FASTING 173 MG/DL (70-100); POTASSIUM SERUM 4.1 MEQ/L (3.5-5.1); SODIUM LEVEL 142 MEQ/L (136-145); TOTAL PROTEIN 4.8 GM/DL (6.4-8.2)
[2021-03-06] MEDS: CLOTRIMAZOLE 1% TOPICAL CREAM 30GM TOP SCH ×2 (09:07→23:10)
[2021-03-06] MEDS: NYSTATIN 500,000 U/5 ML SUSP UDC SS SCH ×4 (09:07→23:09)
[2021-03-06] MEDS: ENOXAPARIN 80MG/0.8ML SYRINGE (J1650 PER 10MG) SC SCH ×2 (09:07→23:09)
[2021-03-06] MEDS: dexameTHASONE 4 MG/ML 1ML VIAL (J1100 PER 1MG) IV SCH ×2 (09:07→23:10)
[2021-03-06 10:16] LABS: INR 1.26; PROTHROMBIN TIME 16.3 SECONDS (12.7-14.5)
[2021-03-06 14:00] VITALS: BP 139/85
[2021-03-06 19:45] VITALS: BP 161/79
[2021-03-06] MEDS ORDERED: SODIUM CHLORIDE 0.9% INJ 10 ML SYR IV PRN (22:25)
[2021-03-06] MEDS: PANTOPRAZOLE 40MG VIAL (C9113 PER 1) IV SCH (23:10)
[2021-03-07 05:53] VITALS: BP 170/80
[2021-03-07] MEDS: HumaLOG INSULIN (NovoLOG) PER UNIT SC SCH ×3 (06:00→17:20)
[2021-03-07] MEDS: D5W/0.9% SODIUM CHLORIDE 1,000 ML IV SCH ×2 (06:04→18:56)
[2021-03-07 07:20] LABS: HEMATOCRIT 38.9 % (42.0-52.0); HEMOGLOBIN 12.7 g/dl (13.5-17.5); MEAN CORPUSCULAR HEMOGLOBIN 30.9 pg (27.0-33.0); MEAN CORPUSCULAR HGB CONC 32.6 g/dl (32.0-36.5); MEAN CORPUSCULAR VOLUME 94.6 fl (80.0-96.0); PLATELET COUNT, AUTOMATED 162 10^3/uL (150-450); RED BLOOD COUNT 4.11 10^6/uL (4.30-6.10); WHITE BLOOD COUNT 3.7 10^3/uL (4.0-10.0)
[2021-03-07 07:47] LABS: ALBUMIN 2.7 GM/DL (3.2-5.2); ALT/SGPT 29 U/L (12-78); BILIRUBIN,TOTAL 0.5 MG/DL (0.2-1.0); BLOOD UREA NITROGEN 11 MG/DL (7-18); CALCIUM LEVEL 7.4 MG/DL (8.8-10.2); CARBON DIOXIDE LEVEL 22 MEQ/L (21-32); CHLORIDE LEVEL 115 MEQ/L (98-107); CREATININE FOR GFR 0.65 MG/DL (0.70-1.30); GLOMERULAR FILTRATION RATE > 60.0 (>35); GLUCOSE, FASTING 155 MG/DL (70-100); POTASSIUM SERUM 3.7 MEQ/L (3.5-5.1); SODIUM LEVEL 144 MEQ/L (136-145); TOTAL PROTEIN 5.4 GM/DL (6.4-8.2)
[2021-03-07] MEDS ORDERED: DEXTROSE 50% 50 ML SYRINGE IV PRN (07:50)
[2021-03-07] MEDS ORDERED: GLUCOSE 4GM CHEW TABLET PO PRN (07:50)
[2021-03-07] MEDS ORDERED: GLUCAGON INJ 1MG VIAL SC PRN (07:50)
[2021-03-07] MEDS ORDERED: HumaLOG INSULIN (NovoLOG) PER UNIT SC SCH ×2 (07:55→12:00)
[2021-03-07] MEDS: dexameTHASONE 4 MG/ML 1ML VIAL (J1100 PER 1MG) IV SCH ×2 (08:42→21:56)
[2021-03-07] MEDS: ENOXAPARIN 80MG/0.8ML SYRINGE (J1650 PER 10MG) SC SCH ×2 (08:43→21:00)
[2021-03-07] MEDS: SODIUM CHLORIDE 0.9% INJ 10 ML SYR IV SCH ×2 (08:43→08:48)
[2021-03-07] MEDS: NYSTATIN 500,000 U/5 ML SUSP UDC SS SCH ×4 (08:44→21:56)
[2021-03-07] MEDS: CLOTRIMAZOLE 1% TOPICAL CREAM 30GM TOP SCH ×2 (08:44→21:58)
[2021-03-07] MEDS ORDERED: POMA1CAP PO (13:33)
[2021-03-07 14:00] VITALS: BP 164/82
[2021-03-07] MEDS ORDERED: VARIBAR NECTAR 40% w/v 240ML SUSP BTL As Ordered ONE (14:27)
[2021-03-07] MEDS ORDERED: VARIBAR PUDDING 40% w/v 230ML TUBE As Ordered ONE (14:27)
[2021-03-07] MEDS ORDERED: BARIUM SULFATE 700 MG TABLET (E-Z-DISK) As Ordered ONE (14:28)
[2021-03-07] MEDS ORDERED: E-Z-PAQUE 96% w/w SUSP 176GM BTL As Ordered ONE (14:28)
[2021-03-07] MEDS: PANTOPRAZOLE 40MG VIAL (C9113 PER 1) IV SCH (21:56)
[2021-03-07] MEDS: ACYCLOVIR 200 MG CAPSULE PO SCH (21:57)
[2021-03-07] MEDS: PRAVASTATIN 20 MG TAB PO SCH (21:57)
[2021-03-07] MEDS: ENALAPRIL MALEATE 10 MG TAB PO SCH (21:57)
[2021-03-07 22:00] VITALS: BP 161/84
[2021-03-08] MEDS: D5W/0.9% SODIUM CHLORIDE 1,000 ML IV SCH (06:00)
[2021-03-08 06:01] VITALS: BP 158/85
[2021-03-08 07:27] LABS: HEMOGLOBIN 12.3 g/dl (13.5-17.5); MEAN CORPUSCULAR HEMOGLOBIN 30.9 pg (27.0-33.0); MEAN CORPUSCULAR HGB CONC 32.4 g/dl (32.0-36.5); MEAN CORPUSCULAR VOLUME 95.5 fl (80.0-96.0); PLATELET COUNT, AUTOMATED 175 10^3/uL (150-450); RED BLOOD COUNT 3.98 10^6/uL (4.30-6.10); WHITE BLOOD COUNT 3.7 10^3/uL (4.0-10.0)
[2021-03-08 07:49] LABS: ALBUMIN 2.6 GM/DL (3.2-5.2); ALT/SGPT 45 U/L (12-78); BILIRUBIN,TOTAL 0.4 MG/DL (0.2-1.0); BLOOD UREA NITROGEN 12 MG/DL (7-18); CALCIUM LEVEL 7.4 MG/DL (8.8-10.2); CARBON DIOXIDE LEVEL 26 MEQ/L (21-32); CHLORIDE LEVEL 113 MEQ/L (98-107); CREATININE FOR GFR 0.63 MG/DL (0.70-1.30); GLOMERULAR FILTRATION RATE > 60.0 (>35); GLUCOSE, FASTING 128 MG/DL (70-100); SODIUM LEVEL 146 MEQ/L (136-145); TOTAL PROTEIN 5.2 GM/DL (6.4-8.2)
[2021-03-08 08:26] LABS: HEMOGLOBIN A1c 6.1 %
[2021-03-08] MEDS: ACYCLOVIR 200 MG CAPSULE PO SCH ×2 (08:41→20:32)
[2021-03-08] MEDS: ESCITALOPRAM OXALATE 5MG TABLET (LEXAPRO) PO SCH (08:41)
[2021-03-08] MEDS: NYSTATIN 500,000 U/5 ML SUSP UDC SS SCH ×4 (08:41→20:35)
[2021-03-08] MEDS: FINASTERIDE 5 MG TAB PO SCH (08:41)
[2021-03-08] MEDS: dexameTHASONE 4 MG/ML 1ML VIAL (J1100 PER 1MG) IV SCH ×2 (08:42→20:35)
[2021-03-08] MEDS: SODIUM CHLORIDE 0.9% INJ 10 ML SYR IV SCH (08:42)
[2021-03-08] MEDS: ENOXAPARIN 80MG/0.8ML SYRINGE (J1650 PER 10MG) SC SCH ×2 (08:43→20:35)
[2021-03-08] MEDS: CLOTRIMAZOLE 1% TOPICAL CREAM 30GM TOP SCH ×2 (08:43→20:36)
[2021-03-08] MEDS ORDERED: ENTER DRUG NAME HERE (PATIENT'S OWN MED) PO SCH (09:00)
[2021-03-08 14:00] VITALS: BP 145/85
[2021-03-08] MEDS ORDERED: LIDOCAINE VISCOUS 2% SOLN 15ML UDC SS PRN (16:50)
[2021-03-08] MEDS: SUCRALFATE SUSP 1GM/10ML UD PO SCH ×2 (18:35→20:35)
[2021-03-08 19:23] VITALS: BP 127/82
[2021-03-08 20:33] VITALS: BP 127/82
[2021-03-08] MEDS: ENALAPRIL MALEATE 10 MG TAB PO SCH (20:33)
[2021-03-08] MEDS: FLUCONAZOLE 100 MG TAB PO SCH (20:34)
[2021-03-08] MEDS: PRAVASTATIN 20 MG TAB PO SCH (20:34)
[2021-03-08] MEDS ORDERED: FLUCONAZOLE 50MG TABLET PO SCH (21:00)
[2021-03-09 06:00] VITALS: BP 131/85
[2021-03-09 06:44] LABS: HEMATOCRIT 37.9 % (42.0-52.0); HEMOGLOBIN 12.7 g/dl (13.5-17.5); MEAN CORPUSCULAR HEMOGLOBIN 31.4 pg (27.0-33.0); MEAN CORPUSCULAR HGB CONC 33.5 g/dl (32.0-36.5); MEAN CORPUSCULAR VOLUME 93.6 fl (80.0-96.0); PLATELET COUNT, AUTOMATED 151 10^3/uL (150-450); RED BLOOD COUNT 4.05 10^6/uL (4.30-6.10); WHITE BLOOD COUNT 3.1 10^3/uL (4.0-10.0)
[2021-03-09 07:22] LABS: ALBUMIN 2.6 GM/DL (3.2-5.2); ALT/SGPT 48 U/L (12-78); BILIRUBIN,TOTAL 0.4 MG/DL (0.2-1.0); BLOOD UREA NITROGEN 12 MG/DL (7-18); CALCIUM LEVEL 7.5 MG/DL (8.8-10.2); CARBON DIOXIDE LEVEL 24 MEQ/L (21-32); CHLORIDE LEVEL 112 MEQ/L (98-107); CREATININE FOR GFR 0.56 MG/DL (0.70-1.30); GLOMERULAR FILTRATION RATE > 60.0 (>35); GLUCOSE, FASTING 135 MG/DL (70-100); POTASSIUM SERUM 3.7 MEQ/L (3.5-5.1); SODIUM LEVEL 142 MEQ/L (136-145); TOTAL PROTEIN 5.4 GM/DL (6.4-8.2)
[2021-03-09] MEDS ORDERED: FLUC100T PO (08:18)
[2021-03-09] MEDS ORDERED: CLOTR1CR TOP (08:18)
[2021-03-09] MEDS ORDERED: SUCR1ORA PO (08:18)
[2021-03-09] MEDS ORDERED: LIDO2SO SS (08:18)
[2021-03-09] MEDS ORDERED: PANTOPRAZOLE 40MG TAB (PROTONIX) PO SCH (09:00)
[2021-03-09] MEDS: ESCITALOPRAM OXALATE 5MG TABLET (LEXAPRO) PO SCH (10:18)
[2021-03-09] MEDS: ACYCLOVIR 200 MG CAPSULE PO SCH (10:18)
[2021-03-09] MEDS: SUCRALFATE SUSP 1GM/10ML UD PO SCH (10:19)
[2021-03-09] MEDS: FINASTERIDE 5 MG TAB PO SCH (10:19)
[2021-03-09] MEDS: FLUCONAZOLE 100 MG TAB PO SCH (10:19)
[2021-03-09] MEDS: NYSTATIN 500,000 U/5 ML SUSP UDC SS SCH (10:20)
[2021-03-09] MEDS: dexameTHASONE 4 MG/ML 1ML VIAL (J1100 PER 1MG) IV SCH (10:20)
[2021-03-09] MEDS: ENOXAPARIN 80MG/0.8ML SYRINGE (J1650 PER 10MG) SC SCH (10:20)
[2021-03-09] MEDS: SODIUM CHLORIDE 0.9% INJ 10 ML SYR IV SCH (10:22)
[2021-03-09] MEDS: CLOTRIMAZOLE 1% TOPICAL CREAM 30GM TOP SCH (10:22)
[2021-03-09] MEDS ORDERED: FLUC200T2 PO (11:47)
[2021-03-09] MEDS ORDERED: CLOT1CRE56 TOP (14:09)
[2021-03-09] MEDS ORDERED: SUCR1SS PO (14:09)
[2021-03-09] MEDS ORDERED: LIDO2SO SSP (14:09)
== END 2021-03-09 12:39 | disposition home or self-care (01) | DRG 369 ==
LOC: M ED 12:04 → M ED INP 17:40 → ENRESERV 20:43 → M MSPAV 21:35
PROVIDERS: ADMIT Internal Medicine; ATTEND Internal Medicine
DX: B37.81 Candidal esophagitis (principal); C90.00 Multiple myeloma not having achieved remission; C79.51 Secondary malignant neoplasm of bone; K20.80 Other esophagitis without bleeding; B37.0 Candidal stomatitis; R13.10 Dysphagia, unspecified; I10 Essential (primary) hypertension; B35.4 Tinea corporis; N40.0 Benign prostatic hyperplasia without lower urinary tract symptoms; E78.5 Hyperlipidemia, unspecified; G47.33 Obstructive sleep apnea (adult) (pediatric); Z86.711 Personal history of pulmonary embolism; Z79.899 Other long term (current) drug therapy; Z88.8 Allergy status to other drugs, medicaments and biological substances

== ENCOUNTER 2021-03-16 08:03 | Outpatient (CLI) | payer MEDICARE, OTHER ==
[~2021-03-16] VITALS: Ht 177.8 cm; Wt 81.6 kg
[~2021-03-16 08:03] MED LIST changes: +CLOT1CRE56 TOP; +CLOTR1CR TOP; +FLUC100T PO; +FLUC200T2 PO; -LEVO500T3 PO; +LEVO500T4 PO; +LIDO2SO SS; +LIDO2SO SSP; -MONT10TA10 PO; +MONT10TA97 PO; +ONDA-84 PO; -ONDA8TAB10 PO; -PROC10TA4 PO; +PROC10TA5 PO; +SUCR1ORA PO; +SUCR1SS PO; +TIMO0.5S39 OU
[2021-03-16 08:20] VITALS: BP 141/88
[2021-03-16] MEDS ORDERED: NS 1,000 ML IV ONE (09:00)
[2021-03-16] MEDS ORDERED: SODIUM CHLORIDE 0.9% INJ 10 ML SYR IV PRN (09:45)
[2021-03-17] MEDS ORDERED: SODIUM CHLORIDE 0.9% INJ 10 ML SYR IV SCH (09:00)
== END 2021-03-16 10:15 | disposition home or self-care (01) ==
LOC: M OPCLI4PR 08:03
PROVIDERS: ATTEND Internal Medicine Medical Oncology
DX: C90.00 Multiple myeloma not having achieved remission (principal)
CPT/HCPCS: 96360; J1642

== ENCOUNTER → 2021-04-01 | Outpatient (CLI) | payer MEDICARE, OTHER ==
[~2021-04-01] MED LIST changes: -FLUC100T PO; +FLUC100T3 PO; -FLUC200T2 PO; +FLUC200T4 PO
== END ==
LOC: M ONCR 12:33
PROVIDERS: ATTEND General Practice
DX: C90.02 Multiple myeloma in relapse (principal); Z92.3 Personal history of irradiation

== ENCOUNTER 2021-04-23 02:00 | Emergency (ER) | payer MEDICARE, OTHER | END 2021-04-23 03:32 | disposition E | LOC: MERGE 02:00 → EDBD 02:00 → M ED 02:00 | DX: I46.9 Cardiac arrest, cause unspecified (principal) ==